=== PATIENT | male | born 1945 | race Caucasian/White ===

== ENCOUNTER 2016-11-01 18:05 | Inpatient (IN) | payer OTHER ==
[~2016-11-01] VITALS: Ht 182.9 cm; Wt 80.7 kg
[~2016-11-01 18:05] MED LIST: ZITH250T PO; ZOCO40TA PO
[2016-11-01 18:10] VITALS: BP 122/66; PULSE 67; RESP 24; TEMP 98.3; O2SAT 99
[2016-11-01] MEDS ORDERED: SODIUM CHLORIDE 0.9% FLUSH 5 ML FLUSH IVF PRN (18:15)
[2016-11-01] MEDS ORDERED: SODIUM CHLORID 0.9% 500 ML INJ 500 ML IV ONE (18:15)
[2016-11-01] MEDS ORDERED: SIMV40TA PO (18:28)
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
[2016-11-01 18:41] LABS: BASOPHIL # 0.1 TH/MM3 (0-0.2); BASOPHIL % 1.5 % (0.0-2.0); EOSINOPHIL # 0.4 TH/MM3 (0-0.4); EOSINOPHIL % 5.8 % (0.0-4.0); HEMATOCRIT 37.6 % (39.0-51.0); HEMO FLAGS DIFF FINAL; LYMPH % 35.7 % (9.0-44.0); LYMPHOCYTE # 2.3 TH/MM3 (1.0-4.8); MEAN CELL VOLUME 91.3 FL (80.0-100.0); MEAN CORPUSCULAR HEMOGLOBIN 31.8 PG (27.0-34.0); MEAN CORPUSCULAR HGB CONC 34.8 % (32.0-36.0); MONO % 9.3 % (0.0-8.0); NEUT % 47.7 % (16.0-70.0); PLATELET COUNT 207 TH/MM3 (150-450); RED BLOOD COUNT 4.11 MIL/MM3 (4.50-5.90); RED CELL DISTRIBUTION WIDTH 14.7 % (11.6-17.2); WHITE BLOOD COUNT 6.4 TH/MM3 (4.0-11.0)
[2016-11-01 18:53] LABS: APTT (PATIENT) 25.8 SEC (24.3-30.1); PROTHROMBIN TIME - PATIENT 11.1 SEC (9.8-11.6)
[2016-11-01 19:11] LABS: ANION GAP 10 MEQ/L (5-15); AST (GOT) 20 U/L (15-37); BICARBONATE 25.6 MEQ/L (21.0-32.0); BLOOD UREA NITROGEN 8 MG/DL (7-18); CHLORIDE 90 MEQ/L (98-107); GLOMERULAR FILTRATION RATE 114 ML/MIN (>89); MAGNESIUM 1.9 MG/DL (1.5-2.5); POTASSIUM 3.5 MEQ/L (3.5-5.1); SODIUM (NA) 126 MEQ/L (136-145)
[2016-11-01 19:15] LABS: ALKALINE PHOSPHATASE 68 U/L (45-117); ALT (GPT) 22 U/L (12-78); CREATINE KINASE 103 U/L (39-308); TOTAL BILIRUBIN ADULT 0.3 MG/DL (0.2-1.0)
[2016-11-01 19:35] VITALS: BP 137/80; PULSE 68; RESP 20; TEMP 98; O2SAT 98
--- NOTE | 2016-11-01 19:47 | RADRPT ---
EXAM DATE/TIME: 11/01/2016 18:34 [facility] COMPARISON: No previous studies available for comparison. INDICATIONS : Chest pains. MEDICAL HISTORY : None. SURGICAL HISTORY : Cholecystectomy. Shoulder sx. ENCOUNTER: Initial ACUITY: 1 day PAIN SCORE: 7/10 LOCATION: Bilateral chest FINDINGS: A single view of the chest demonstrates the lungs to be symmetrically aerated without evidence of mas s, infiltrate or effusion. The cardiomediastinal contours are unremarkable. CONCLUSION: 1. No active disease. Metallic screw seen in the coracoclavicular region on the right. Dion Curtis MD on November 01, 2016 at 19:44 Board Certified Radiologist. This report was verified electronically.
[2016-11-01 19:56] VITALS: RESP 20
[2016-11-01] MEDS ORDERED: IOHEXOL 350 MG/ML 10 ML VIAL (for RAD DIAG) IV ONE (20:01)
--- NOTE | 2016-11-01 21:15 | RADRPT ---
EXAM DATE/TIME: 11/01/2016 19:56 [facility] COMPARISON: No previous studies available for comparison. INDICATIONS : Upper abdominal pain. IV CONTRAST: 95 cc Omnipaque 350 (iohexol) IV ORAL CONTRAST: No oral contrast ingested. RADIATION DOSE: 12.35 CTDIvol (mGy) MEDICAL HISTORY : Chronic obstructive pulmonary disease. epididymitis SURGICAL HISTORY : Cholecystectomy. ENCOUNTER: Initial ACUITY: 1 day PAIN SCALE: 7/10 LOCATION: abdomen TECHNIQUE: Volumetric scanning of the abdomen and pelvis was performed. Using automated exposure control and ad justment of the mA and/or kV according to patient size, radiation dose was kept as low as reasonably achievable to obtain optimal diagnostic quality images. FINDINGS: There is abnormal soft tissue density in the abdomen adjacent to the aorta just below the level of th e renal arteries. It appears to be contiguous with the left posterolateral wall of the aorta and coul d represent a focal saccular aneurysm. It does not contain contrast and is presumably thrombosed. The re is a more typical-appearing 3.1 cm aneurysmal dilatation of the distal abdominal aorta just above the bifurcation. The stomach is distended with an air-fluid level present. Lung bases are clear. No significant abnorm ality in the liver, spleen, adrenals, kidneys or pancreas. Previous cholecystectomy. No bowel obstruc tion. No free air or free fluid. Femoral-femoral shunt present. 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 CONCLUSION: 1. Saccular pouching from the left posterolateral wall of the infrarenal abdominal aorta measuring up to 3 x 2.4 cm. Etiology unclear but possibly a thrombosed saccular aneurysm. 2. 3.1 cm infrarenal abdominal aortic aneurysm also present with partial mural thrombus. 3. Previous femoral to femoral artery shunt present. 4. Distended stomach with air-fluid level. Dion Curtis MD on November 01, 2016 at 20:50 Board Certified Radiologist. This report was verified electronically.
[2016-11-01] MEDS ORDERED: HALOPERIDOL LACTATE 5 MG/ML AMP IM PRN (22:00)
[2016-11-01] MEDS ORDERED: ACETAMINOPHEN/HYDROcodone 325 MG/5 MG TAB PO PRN (22:00)
[2016-11-01] MEDS ORDERED: ONDANSETRON HCL 4 MG/2 ML VIAL IVP PRN (22:00)
[2016-11-01] MEDS ORDERED: LORazepam 2 MG/ML VIAL IV PUSH PRN ×4 (22:00)
[2016-11-01] MEDS ORDERED: FLUMAZENIL 0.5 MG/5 ML VIAL IV PUSH PRN (22:00)
[2016-11-01] MEDS ORDERED: ACETAMINOPHEN 325 MG TAB PO PRN (22:00)
[2016-11-01] MEDS ORDERED: SODIUM CHLORIDE 0.9% FLUSH 5 ML FLUSH FLUSH PRN (22:00)
[2016-11-01] MEDS ORDERED: BISACODYL 10 MG SUPP PR PRN (22:00)
[2016-11-01] MEDS ORDERED: LORazepam 1 MG TAB PO PRN (22:00)
[2016-11-01] MEDS ORDERED: MORPHINE SULFATE 4 MG/ML INJ IV PRN (22:00)
[2016-11-01] MEDS ORDERED: LORazepam 2 MG TAB PO PRN (22:00)
--- NOTE | 2016-11-01 22:01 | HHI.HP ---
[facility] Service [facility] Primary Care Physician [facility] Admission Diagnosis AAA, chest pain, hyponatremia Diagnoses: (1) Chest pain Diagnosis: Principal (2) AAA (abdominal aortic aneurysm) Diagnosis: Principal (3) Hyponatremia Diagnosis: Principal (4) Alcohol abuse Diagnosis: Principal (5) Tobacco abuse Diagnosis: Principal Travel History International Travel<30 Days: No Contact w/Intl Traveler <30 Da: No Traveled to Known Affected Are: No History of Present Illness This is a 71-year-old male with a PMH of COPD, Alcohol Abuse and Tobacco Abuse who was brought to the ER by EMS secondary to chest pain. States he was hanging out with friends at home and had drank 2 pitchers of beer when he felt sudden epigastric/substernal pain. S/p ASA and NTG by EMS w/ no significant improvement. On arrival, pt acutely intoxicated. Admits to drinking 1-2 pitchers of beer/day. BP 137/80, HR 68, O2 sat 98% on RA, Afebrile. CBC unremarkable. Na 126. INR normal. Alcohol 212. CXR w/ no acute findings. 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 Dr. Corley consulted by ER physician, recommended NPO status and will evaluate in am. Review of Systems Other ROS: 14 point review of systems otherwise negative. Past Family Social History Past Medical History PMH: COPD, Alcohol Abuse and Tobacco Abuse Past Surgical History PAST SURGICAL HISTORY: Right Shoulder Surgery, Cholecystectomy, Lower Extremity Grafts Allergies: Coded Allergies: Trazodone (Verified Allergy, Intermediate, ERECTION FOR DAYS, 11/01/16) Family History PAST FAMILY HISTORY: Reviewed. No h/o DM or CAD Social History PAST SOCIAL HISTORY: Drinks 12-14 beers/day. Smokes 1ppd. Denies drug use. Physical Exam Vital Signs Vital Signs Date Time Temp Pulse Resp B/P Pulse Ox O2 Delivery O2 Flow Rate FiO2 11/01/16 19:56 20 11/01/16 19:35 98.0 68 20 137/80 98 Room Air 11/01/16 18:10 98.3 67 24 122/66 99 Physical Exam PE: GENERAL: Middle-aged white male in no acute distress. Intoxicated but awake HEENT: PERRLA, EOMI. No scleral icterus or conjunctival pallor. No lid lag or facial droop. CARDIOVASCULAR: Regular rate and rhythm. No obvious murmurs to auscultation. No chest tenderness to palpation. RESPIRATORY: No obvious rhonchi or wheezing. Clear to auscultation. Breath sounds equal bilaterally. GASTROINTESTINAL: Abdomen soft, epigastric tenderness to palpation, nondistended. BS normal. MUSCULOSKELETAL: Extremities without clubbing, cyanosis, or edema. No obvious deformities. NEUROLOGICAL: Awake, alert and oriented x4. No focal neurologic deficits. Moving both upper and lower extremities spontaneously. Laboratory Laboratory Tests Test 11/01/16 18:30 White Blood Count 6.4 Red Blood Count 4.11 Hemoglobin 13.1 Hematocrit 37.6 Mean Corpuscular Volume 91.3 Mean Corpuscular Hemoglobin 31.8 Mean Corpuscular Hemoglobin 34.8 Concent Red Cell Distribution Width 14.7 Platelet Count 207 Mean Platelet Volume 7.5 Neutrophils (%) (Auto) 47.7 Lymphocytes (%) (Auto) 35.7 Monocytes (%) (Auto) 9.3 Eosinophils (%) (Auto) 5.8 Basophils (%) (Auto) 1.5 Neutrophils # (Auto) 3.0 Lymphocytes # (Auto) 2.3 Monocytes # (Auto) 0.6 Eosinophils # (Auto) 0.4 Basophils # (Auto) 0.1 CBC Comment DIFF FINAL Differential Comment Prothrombin Time 11.1 Prothromb Time International 1.0 Ratio Activated Partial 25.8 Thromboplast Time Sodium Level 126 Potassium Level 3.5 Chloride Level 90 Carbon Dioxide Level 25.6 Anion Gap 10 Blood Urea Nitrogen 8 Creatinine 0.69 Estimat Glomerular Filtration 114 Rate Random Glucose 75 Calcium Level 8.1 Magnesium Level 1.9 Total Bilirubin 0.3 Aspartate Amino Transf 20 (AST/SGOT) Alanine Aminotransferase 22 (ALT/SGPT) Alkaline Phosphatase 68 Total Creatine Kinase 103 Creatine Kinase MB 3.0 Troponin I LESS THAN 0.02 B-Type Natriuretic Peptide 35 Total Protein 6.6 Albumin 3.4 Lipase 163 Ethyl Alcohol Level 212 Result Diagram: 11/01/16182911/01/161829 Assessment and Plan Problem List: (1) Chest pain ICD Code: R07.9 Status: Acute (2) AAA (abdominal aortic aneurysm) ICD Code: I71.4 Status: Acute (3) Hyponatremia ICD Code: E87.1 Status: Acute (4) Alcohol abuse ICD Code: F10.10 Status: Acute (5) Tobacco abuse ICD Code: Z72.0 Status: Acute Assessment and Plan A/P: 1. Chest Pain: Acute onset of epigastric/substernal chest pain unrelieved by ASA/NTG, likely related to Alcoholic Gastritis however will r/o ACS. Check serial enzymes, NTG/Morphine prn. CXR w/ no acute findings, images reviewed by me. Protonix IV. 2. AAA: CT Abd/Pelvis w/ saccular outpouching from infrarenal abdominal aorta measuring 3 x 2.4 cm, possibly thrombosed saccular aneurysm and 3.1 cm infrarenal abdominal aortic aneurysm with possible partial mural thrombus, images reviewed by me. Dr. Corley consulted by ER physician, recommended NPO status and admission for further eval in am. Currently pain free. Analgesics/ antiemetics as needed. Repeat labs in am. Hemodynamically stable at this time. 3. Hyponatremia: Na 126, likely related to dehydration/chronic alcohol abuse. IVF, repeat BMP, telemetry. 4. Alcohol Abuse: Drinks 12-14 beers/day, Alcohol 212. Seizure Precautions, CIWA, MVT/Thiamine/Folate replacement. 5 Tobacco Abuse: Counselled. Ativan prn. No NicoDerm to avoid vasoconstriction. 6. DVT Prophylaxis: SCD/Teds. 7. Social work for d/c planning as needed. 8. Case discussed w/ ER physician at length. Physician Certification 2 Midnight Certification Type: Admission for Inpatient Services Order for Inpatient Services The services are ordered in accordance with Medicare regulations or non- Medicare payer requirements, as applicable. In the case of services not specified as inpatient-only, they are appropriately provided as inpatient services in accordance with the 2-midnight benchmark. Estimated LOS (days): 2 days is the estimated time the patient will need to remain in the hospital, assuming treatment plan goals are met and no additional complications. Post-Hospital Plan: Not yet determined Problem Qualifiers (1) Chest pain: Qualified Code: R07.9 - Chest pain, unspecified type (2) AAA (abdominal aortic aneurysm): Qualified Code: I71.4 - Abdominal aortic aneurysm (AAA) without rupture Jesica Ayala MD Nov 01, 2016 22:01
--- NOTE | 2016-11-01 22:56 | PD ---
Physical Exam Narrative GENERAL: Well-nourished, well-developed patient. SKIN: Warm and dry. HEAD: Normocephalic and atraumatic. EYES: No injection or drainage. ENT: No nasal drainage noted. NECK: Supple, trachea midline. CARDIOVASCULAR: Regular rate and rhythm RESPIRATORY: no increased effort. No accessory muscle use. GASTROINTESTINAL: Abdomen soft, non-tender, nondistended. BACK: Nontender without obvious deformity. NEUROLOGICAL: Awake and alert. Moves all extremities. slurred speech. Data Data Last Documented VS Vital Signs Date Time Temp Pulse Resp B/P Pulse Ox O2 Delivery O2 Flow Rate FiO2 11/01/16 19:56 20 11/01/16 19:35 98.0 68 137/80 98 Room Air Orders B-Type Natriuretic Peptide (11/01/16 18:10) Ckmb (Isoenzyme) Profile (11/01/16 18:10) Complete Blood Count With Diff (11/01/16 18:10) Comprehensive Metabolic Panel (11/01/16 18:10) Magnesium (Mg) (11/01/16 18:10) Prothrombin Time / Inr (Pt) (11/01/16 18:10) Act Partial Throm Time (Ptt) (11/01/16 18:10) Troponin I (11/01/16 18:10) Lipase (11/01/16 18:10) Chest, Single Ap (11/01/16 18:10) Ecg Monitoring (11/01/16 18:10) Iv Access Insert/Monitor (11/01/16 18:10) Oximetry (11/01/16 18:10) Sodium Chloride 0.9% Flush (Ns Flush) (11/01/16 18:15) Sodium Chlorid 0.9% 500 Ml Inj (Ns 500 M (11/01/16 18:15) Electrocardiogram (11/01/16 ) Ct Abd/Pel W Iv Contrast(Rout) (11/01/16 18:33) CKMB (11/01/16 18:30) CKMB% (11/01/16 18:30) Alcohol (Ethanol) (11/01/16 18:30) Iohexol 350 Inj (Omnipaque 350 Inj) (11/01/16 20:01) Consult Vascular Surgery (11/01/16 ) Admit Order (Ed Use Only) (11/01/16 21:42) Labs Laboratory Tests Test 11/01/16 18:30 White Blood Count 6.4 TH/MM3 Red Blood Count 4.11 MIL/MM3 Hemoglobin 13.1 GM/DL Hematocrit 37.6 % Mean Corpuscular Volume 91.3 FL Mean Corpuscular Hemoglobin 31.8 PG Mean Corpuscular Hemoglobin 34.8 % Concent Red Cell Distribution Width 14.7 % Platelet Count 207 TH/MM3 Mean Platelet Volume 7.5 FL Neutrophils (%) (Auto) 47.7 % Lymphocytes (%) (Auto) 35.7 % Monocytes (%) (Auto) 9.3 % Eosinophils (%) (Auto) 5.8 % Basophils (%) (Auto) 1.5 % Neutrophils # (Auto) 3.0 TH/MM3 Lymphocytes # (Auto) 2.3 TH/MM3 Monocytes # (Auto) 0.6 TH/MM3 Eosinophils # (Auto) 0.4 TH/MM3 Basophils # (Auto) 0.1 TH/MM3 CBC Comment DIFF FINAL Differential Comment Prothrombin Time 11.1 SEC Prothromb Time International 1.0 RATIO Ratio Activated Partial 25.8 SEC Thromboplast Time Sodium Level 126 MEQ/L Potassium Level 3.5 MEQ/L Chloride Level 90 MEQ/L Carbon Dioxide Level 25.6 MEQ/L Anion Gap 10 MEQ/L Blood Urea Nitrogen 8 MG/DL Creatinine 0.69 MG/DL Estimat Glomerular Filtration 114 ML/MIN Rate Random Glucose 75 MG/DL Calcium Level 8.1 MG/DL Magnesium Level 1.9 MG/DL Total Bilirubin 0.3 MG/DL Aspartate Amino Transf 20 U/L (AST/SGOT) Alanine Aminotransferase 22 U/L (ALT/SGPT) Alkaline Phosphatase 68 U/L Total Creatine Kinase 103 U/L Creatine Kinase MB 3.0 NG/ML Troponin I LESS THAN 0.02 NG/ML B-Type Natriuretic Peptide 35 PG/ML Total Protein 6.6 GM/DL Albumin 3.4 GM/DL Lipase 163 U/L Ethyl Alcohol Level 212 MG/DL [facility] Supervised Visit with WAYNE: No Interpretation(s) CBC & BMP Diagram 11/01/16 18:30 Last 24 hours Impressions Abdomen/Pelvis CT 11/01/16 [id number] Signed Impressions: Service Date/Time: Tuesday, November 01, 2016 19:56 - CONCLUSION: 1. Saccular pouching from the left posterolateral wall of the infrarenal abdominal aorta measuring up to 3 x 2.4 cm. Etiology unclear but possibly a thrombosed saccular aneurysm. 2. 3.1 cm infrarenal abdominal aortic aneurysm also present with partial mural thrombus. 3. Previous femoral to femoral artery shunt present. 4. Distended stomach with air-fluid level. Dion Curtis MD Chest X-Ray 11/01/16 1810 Signed Impressions: Service Date/Time: Tuesday, November 01, 2016 18:34 - CONCLUSION: 1. No active disease. Metallic screw seen in the coracoclavicular region on the right. Dion Curtis MD Narrative Course Signed over to me to follow workup and likely admit, workup with new abdominal aneurysm with intermittent abdominal pain. Blood work also shows alcohol intoxication and associated hyponatremia was stable hemoglobin. Patient has no pain on reexamination and his waking up. Updated and agrees to admission Physician Communication Physician Communication dr brantley states to keep npo, admit to cic with medicine dr tierney agrees to admit Diagnosis Primary Impression: Chest pain Qualified Code: R07.9 - Chest pain, unspecified type Additional Impressions: AAA (abdominal aortic aneurysm) Qualified Code: I71.4 - Abdominal aortic aneurysm (AAA) without rupture Hyponatremia Alcohol abuse Admitting Information Admitting Physician Requests: Admit Brigette Wharton MD Nov 01, 2016 22:56
[2016-11-01] MEDS: PANTOPRAZOLE SODIUM 40 MG VIAL IV PUSH SCH (23:19)
[2016-11-01] MEDS: THIAMINE INJ 100 MG in SODIUM CHLORIDE 0.9% INJ 100 ML IV SCH (23:19)
[2016-11-01] MEDS: SODIUM CHLOR 0.9% 1000 ML INJ 1,000 ML IV SCH (23:19)
[2016-11-01] MEDS: MULTIVITAMIN INJ 10 ML, FOLIC ACID INJ 1 MG in SODIUM CHLORID 0.9% 500 ML INJ 500 ML IV SCH (23:19)
[2016-11-02] VITALS (27 sets, daily range): BP systolic 135–157; BP diastolic 70–89; PULSE 58–84; RESP 16–20; TEMP 97.6–98.9; O2SAT 94–98
[2016-11-02 02:22] LABS: ANION GAP 9 MEQ/L (5-15); BICARBONATE 24.9 MEQ/L (21.0-32.0); BLOOD UREA NITROGEN 9 MG/DL (7-18); CHLORIDE 101 MEQ/L (98-107); GLOMERULAR FILTRATION RATE 131 ML/MIN (>89); SODIUM (NA) 135 MEQ/L (136-145)
--- NOTE | 2016-11-02 07:54 | PD.VS.CON ---
History of Present Illness Chief Complaint: Hx of chest (xiphoid and substernal) band like pain that has subsided since last evening. Consult Requested by: ER History of Present Illness 71 year old male with hx of PAD, Hyperlipidemia and smoking with acute onset of substernal/epigastric type pain. Pain resolved once brought to the ER. Patient intoxicated upon arrival. Incidental finding of infrarenal saccular and fusiform aneurysms (former with thrombus) on CT with contrast. Denies flank or back discomfort. Past/Family/Social History Past Medical History Past Medical History PMH: COPD, PAD, Alcohol Abuse and Tobacco Abuse Past Surgical History PAST SURGICAL HISTORY: Right Shoulder Surgery, Cholecystectomy, Fem-fem, left fem-pop bypass, right ulnar artery surgery. Allergies: Coded Allergies: Trazodone (Verified Allergy, Intermediate, ERECTION FOR DAYS, 11/01/16) Family History PAST FAMILY HISTORY: Reviewed. No h/o DM or CAD Social History PAST SOCIAL HISTORY: Drinks 12-14 beers/day. Smokes 1ppd. Denies drug use. Home Medications Reported Medications Simvastatin 40 Mg Tab40 Mg PO HS Ref 0 11/01/16 Coded Allergies: Trazodone (Verified Allergy, Intermediate, ERECTION FOR DAYS, 11/01/16) Physical Exam Vitals/I&O Date Time Temp Pulse Resp B/P Pulse Ox O2 Delivery O2 Flow Rate FiO2 11/02/16 01:25 97.6 70 18 147/86 94 11/02/16 00:08 98.0 70 20 136/70 98 Nasal Cannula 2 11/01/16 19:56 20 11/01/16 19:35 98.0 68 20 137/80 98 Room Air 11/01/16 18:10 98.3 67 24 122/66 99 Neuro: CN2-12 intact Neck: no carotid bruits Heart: regular Lungs: CTA B Abdomen: soft and non-tender. Vascular: palpable radial and pedal pulses bilaterally. Fem-fem signal Extremities: warm Laboratory Tests Test 11/01/16 11/02/16 18:30 01:50 White Blood Count 6.4 Red Blood Count 4.11 Hemoglobin 13.1 Hematocrit 37.6 Mean Corpuscular Volume 91.3 Mean Corpuscular Hemoglobin 31.8 Mean Corpuscular Hemoglobin 34.8 Concent Red Cell Distribution Width 14.7 Platelet Count 207 Mean Platelet Volume 7.5 Neutrophils (%) (Auto) 47.7 Lymphocytes (%) (Auto) 35.7 Monocytes (%) (Auto) 9.3 Eosinophils (%) (Auto) 5.8 Basophils (%) (Auto) 1.5 Neutrophils # (Auto) 3.0 Lymphocytes # (Auto) 2.3 Monocytes # (Auto) 0.6 Eosinophils # (Auto) 0.4 Basophils # (Auto) 0.1 CBC Comment DIFF FINAL Differential Comment Prothrombin Time 11.1 Prothromb Time International 1.0 Ratio Activated Partial 25.8 Thromboplast Time Sodium Level 126 135 Potassium Level 3.5 4.0 Chloride Level 90 101 Carbon Dioxide Level 25.6 24.9 Anion Gap 10 9 Blood Urea Nitrogen 8 9 Creatinine 0.69 0.61 Estimat Glomerular Filtration 114 131 Rate Random Glucose 75 91 Calcium Level 8.1 8.4 Magnesium Level 1.9 Total Bilirubin 0.3 Aspartate Amino Transf 20 (AST/SGOT) Alanine Aminotransferase 22 (ALT/SGPT) Alkaline Phosphatase 68 Total Creatine Kinase 103 Creatine Kinase MB 3.0 Troponin I LESS THAN 0.02 LESS THAN 0.02 B-Type Natriuretic Peptide 35 Total Protein 6.6 Albumin 3.4 Lipase 163 Ethyl Alcohol Level 212 Last 48 hours Impressions Abdomen/Pelvis CT 11/01/16 1833 Signed Impressions: Service Date/Time: Tuesday, November 01, 2016 19:56 - CONCLUSION: 1. Saccular pouching from the left posterolateral wall of the infrarenal abdominal aorta measuring up to 3 x 2.4 cm. Etiology unclear but possibly a thrombosed saccular aneurysm. 2. 3.1 cm infrarenal abdominal aortic aneurysm also present with partial mural thrombus. 3. Previous femoral to femoral artery shunt present. 4. Distended stomach with air-fluid level. Dion Curtis MD Chest X-Ray 11/01/160 Signed Impressions: Service Date/Time: Tuesday, November 01, 2016 18:34 - CONCLUSION: 1. No active disease. Metallic screw seen in the coracoclavicular region on the right. Dion Curtis MD Assessment and Plan Assessment: (1) AAA (abdominal aortic aneurysm) Status: Acute Plan Patient is 71 year old smoker with COPD and PAD who has had multilpe arterial bypasses in the past. Lower chest pain/resolved. Was not aware of having aortic aneurysms. Less confused this am and his symptoms have resolved. I don't believe he is symptomatic from his aneurysm but he does have a saccular aneurysm in the infrarenal location that is concerning. I think in the interim his diet can be advanced. With his hx of drinking should look for signs of DT over the next few days. Will continue to follow. May order a CTA of aorta with runoff for more detailed arterial anatomy. (will allow for hydration after recent dye load).] TTE may help with surgical risk stratification. Miles Corley DO, FACS Ultrasonographer of Vascular Surgery /[place] Problem Qualifiers (1) AAA (abdominal aortic aneurysm): Qualified Code: I71.4 - Abdominal aortic aneurysm (AAA) without rupture Miles Corley DO Nov 02, 2016 07:54
[2016-11-02] MEDS: SODIUM CHLORIDE 0.9% FLUSH 5 ML FLUSH FLUSH SCH ×2 (10:03→21:00)
[2016-11-02] MEDS: PANTOPRAZOLE SODIUM 40 MG VIAL IV PUSH SCH ×2 (10:16→21:17)
[2016-11-02 11:30] LABS: AUTOMATED NEUTROPHIL # 2.1 TH/MM3 (1.8-7.7); BASOPHIL # 0.1 TH/MM3 (0-0.2); EOSINOPHIL # 0.3 TH/MM3 (0-0.4); EOSINOPHIL % 6.9 % (0.0-4.0); HEMATOCRIT 38.2 % (39.0-51.0); HEMO FLAGS DIFF FINAL; LYMPH % 32.1 % (9.0-44.0); LYMPHOCYTE # 1.5 TH/MM3 (1.0-4.8); MEAN CELL VOLUME 92.1 FL (80.0-100.0); MEAN CORPUSCULAR HEMOGLOBIN 31.8 PG (27.0-34.0); MEAN CORPUSCULAR HGB CONC 34.5 % (32.0-36.0); MONO % 11.9 % (0.0-8.0); NEUT % 47.1 % (16.0-70.0); PLATELET COUNT 194 TH/MM3 (150-450); RED BLOOD COUNT 4.14 MIL/MM3 (4.50-5.90); RED CELL DISTRIBUTION WIDTH 14.8 % (11.6-17.2); WHITE BLOOD COUNT 4.6 TH/MM3 (4.0-11.0)
--- NOTE | 2016-11-02 11:55 | EKG ---
Date Performed: 11/01/2016 Time Performed: 18:22:39 PTAGE: 71 years EKG: Sinus rhythm NORMAL ECG NO PREVIOUS TRACING DOCTOR: Meghan Wang Interpretating Date/Time 11/02/2016 11:54:15
[2016-11-02 11:59] LABS: ALT (GPT) 20 U/L (12-78); ANION GAP 5 MEQ/L (5-15); AST (GOT) 15 U/L (15-37); BICARBONATE 27.6 MEQ/L (21.0-32.0); BLOOD UREA NITROGEN 9 MG/DL (7-18); CHLORIDE 102 MEQ/L (98-107); GLOMERULAR FILTRATION RATE 131 ML/MIN (>89); POTASSIUM 4.7 MEQ/L (3.5-5.1); SODIUM (NA) 135 MEQ/L (136-145)
[2016-11-02 12:03] LABS: ALKALINE PHOSPHATASE 63 U/L (45-117); TOTAL BILIRUBIN ADULT 0.5 MG/DL (0.2-1.0)
[2016-11-02] MEDS: MULTIVITAMIN INJ 10 ML, FOLIC ACID INJ 1 MG in SODIUM CHLORID 0.9% 500 ML INJ 500 ML IV SCH (14:51)
[2016-11-02] MEDS: SODIUM CHLOR 0.9% 1000 ML INJ 1,000 ML IV SCH (14:51)
--- NOTE | 2016-11-02 19:13 | HHI.PR ---
Subjective Remarks Patient seen this morning around 11 AM. Says he is feeling much better than when he came in. Reports that chest pain is resolved. Denies any abdominal pain. Objective Vital Signs Date Time Temp Pulse Resp B/P Pulse Ox O2 Delivery O2 Flow Rate FiO2 11/02/16 18:03 66 11/02/16 17:06 62 11/02/16 16:09 63 11/02/16 15:38 98.5 66 16 157/89 97 11/02/16 15:00 64 11/02/16 14:00 71 11/02/16 13:00 62 11/02/16 12:00 61 11/02/16 11:30 98.3 60 16 140/76 98 11/02/16 11:00 68 11/02/16 10:00 70 11/02/16 09:00 70 11/02/16 08:00 97.8 80 16 155/89 98 11/02/16 08:00 68 11/02/16 07:00 60 11/02/16 06:00 62 11/02/16 05:00 62 11/02/16 04:00 60 11/02/16 03:00 84 11/02/16 03:00 97.6 62 18 135/73 96 11/02/16 02:00 61 11/02/16 01:25 97.6 70 18 147/86 94 11/02/16 00:08 98.0 70 20 136/70 98 Nasal Cannula 2 11/01/16 19:56 20 11/01/16 19:35 98.0 68 20 137/80 98 Room Air I/O 11/01/16 11/01/16 11/01/16 11/02/16 11/02/16 11/02/16 07:00 15:00 23:00 07:00 15:00 23:00 Intake Total 500 ml 1140 ml 2566 ml Output Total 1200 ml 1775 ml Balance 500 ml -60 ml 791 ml Intake Oral 240 ml 720 ml IV Total 500 ml 900 ml 1846 ml Output Urine Total 1200 ml 1775 ml # Voids 1 # Bowel Movements 0 Result Diagram: 11/02/16 1055 11/02/16 1055 Objective Remarks GENERAL: Patient sitting up in bed. Appears comfortable. Alert and oriented 3. SKIN: Warm and dry. HEAD: Normocephalic. EYES: No scleral icterus. No injection or drainage. NECK: Supple, trachea midline. No JVD. CARDIOVASCULAR: Regular rate and rhythm without murmurs, gallops, or rubs. Peripheral perfusion with capillary refill acceptable bilaterally. RESPIRATORY: Breath sounds equal bilaterally. No accessory muscle use. GASTROINTESTINAL: Abdomen soft, non-tender, nondistended. MUSCULOSKELETAL: No cyanosis, or edema. BACK: Nontender without obvious deformity. No CVA tenderness. A/P Assessment and Plan // Chest Pain: Acute onset of epigastric/substernal chest pain unrelieved by ASA/NTG, likely related to Alcoholic Gastritis. -Resolved. Negative troponin 3. Chest x-ray with no acute findings. Continue IV Protonix. -Echocardiogram ordered and pending. 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 Corley consulted by ER physician, recommends assuring for signs of learning troponins over the next several days, with possible CTA of aorta with runoff for more detailed arterial anatomy -Cardia gram ordered and pending for preoperative risk stratification. //Hyponatremia on admission. 126 on admission. -Likely secondary to beer photomania. -Improved to sodium of 135 today with normal saline. We'll switch to half- normal saline, and monitor. //Chronic alcoholism. 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 Continue thiamine. DVT prophylaxis. SCDs/teds. As per surgical service. Discharge Planning Continued monitoring for hyponatremia, as well as abdominal aortic aneurysm. Nir Mack MD Nov 02, 2016 19:13
[2016-11-02] MEDS: THIAMINE INJ 100 MG in SODIUM CHLORIDE 0.9% INJ 100 ML IV SCH (21:19)
[2016-11-02] MEDS: SODIUM CHLOR 0.45% 1000 ML INJ 1,000 ML IV SCH (21:21)
[2016-11-03] VITALS (22 sets, daily range): BP systolic 145–159; BP diastolic 82–91; PULSE 54–88; RESP 17–18; TEMP 98.1–98.4; O2SAT 94–96
[2016-11-03] MEDS: SODIUM CHLOR 0.45% 1000 ML INJ 1,000 ML IV SCH ×2 (07:09→17:39)
[2016-11-03] MEDS: SODIUM CHLORIDE 0.9% FLUSH 5 ML FLUSH FLUSH SCH ×2 (07:23→22:02)
[2016-11-03 08:18] LABS: AUTOMATED NEUTROPHIL # 2.8 TH/MM3 (1.8-7.7); BASOPHIL # 0.1 TH/MM3 (0-0.2); BASOPHIL % 1.4 % (0.0-2.0); EOSINOPHIL # 0.5 TH/MM3 (0-0.4); EOSINOPHIL % 8.3 % (0.0-4.0); HEMATOCRIT 38.2 % (39.0-51.0); HEMO FLAGS DIFF FINAL; LYMPH % 28.9 % (9.0-44.0); LYMPHOCYTE # 1.6 TH/MM3 (1.0-4.8); MEAN CELL VOLUME 92.5 FL (80.0-100.0); MEAN CORPUSCULAR HEMOGLOBIN 31.5 PG (27.0-34.0); MONO % 10.5 % (0.0-8.0); NEUT % 50.9 % (16.0-70.0); PLATELET COUNT 195 TH/MM3 (150-450); RED BLOOD COUNT 4.13 MIL/MM3 (4.50-5.90); RED CELL DISTRIBUTION WIDTH 14.7 % (11.6-17.2); WHITE BLOOD COUNT 5.5 TH/MM3 (4.0-11.0)
[2016-11-03] MEDS: PANTOPRAZOLE SODIUM 40 MG VIAL IV PUSH SCH ×2 (08:53→22:03)
[2016-11-03 08:55] LABS: BICARBONATE 29.1 MEQ/L (21.0-32.0); POTASSIUM 4.3 MEQ/L (3.5-5.1)
--- NOTE | 2016-11-03 17:43 | PD.VS.PN ---
Objective Vitals/I&O Date Time Temp Pulse Resp B/P Pulse Ox O2 Delivery O2 Flow Rate FiO2 11/03/16 16:00 58 11/03/16 16:00 98.1 65 18 148/82 94 11/03/16 15:00 60 11/03/16 14:00 64 11/03/16 13:00 64 11/03/16 12:00 98.2 79 18 159/90 94 11/03/16 12:00 78 11/03/16 11:00 60 11/03/16 10:00 88 11/03/16 09:00 64 11/03/16 08:00 57 11/03/16 08:00 98.4 64 18 155/91 95 11/03/16 07:00 60 11/03/16 06:00 54 11/03/16 05:00 56 11/03/16 05:00 57 18 145/85 96 11/03/16 04:00 58 11/03/16 03:00 63 11/03/16 02:00 54 11/03/16 01:00 58 11/03/16 00:00 58 11/02/16 23:55 69 18 148/85 97 11/02/16 23:00 60 11/02/16 22:00 60 11/02/16 21:00 58 11/02/16 20:00 58 11/02/16 19:00 60 11/02/16 19:00 98.9 61 18 149/89 98 11/02/16 18:03 66 11/03/16 11/03/16 11/03/16 07:00 15:00 23:00 Intake Total 1320 ml Output Total 675 ml Balance 645 ml Laboratory Laboratory Tests Test 11/03/16 07:12 White Blood Count 5.5 Red Blood Count 4.13 Hemoglobin 13.0 Hematocrit 38.2 Mean Corpuscular Volume 92.5 Mean Corpuscular Hemoglobin 31.5 Mean Corpuscular Hemoglobin 34.0 Concent Red Cell Distribution Width 14.7 Platelet Count 195 Mean Platelet Volume 8.1 Neutrophils (%) (Auto) 50.9 Lymphocytes (%) (Auto) 28.9 Monocytes (%) (Auto) 10.5 Eosinophils (%) (Auto) 8.3 Basophils (%) (Auto) 1.4 Neutrophils # (Auto) 2.8 Lymphocytes # (Auto) 1.6 Monocytes # (Auto) 0.6 Eosinophils # (Auto) 0.5 Basophils # (Auto) 0.1 CBC Comment DIFF FINAL Differential Comment Sodium Level 135 Potassium Level 4.3 Chloride Level 100 Carbon Dioxide Level 29.1 Anion Gap 6 Blood Urea Nitrogen 9 Creatinine 0.68 Estimat Glomerular Filtration 116 Rate Random Glucose 102 Calcium Level 8.8 Imaging Last 48 hours Impressions Abdomen/Pelvis CT 11/01/16 1833 Signed Impressions: Service Date/Time: Tuesday, November 01, 2016 19:56 - CONCLUSION: 1. Saccular pouching from the left posterolateral wall of the infrarenal abdominal aorta measuring up to 3 x 2.4 cm. Etiology unclear but possibly a thrombosed saccular aneurysm. 2. 3.1 cm infrarenal abdominal aortic aneurysm also present with partial mural thrombus. 3. Previous femoral to femoral artery shunt present. 4. Distended stomach with air-fluid level. Dion Curtis MD Chest X-Ray 11/01/16 1810 Signed Impressions: Service Date/Time: Tuesday, November 01, 2016 18:34 - CONCLUSION: 1. No active disease. Metallic screw seen in the coracoclavicular region on the right. Dion Curtis MD Assessment and Plan Assessment: (1) AAA (abdominal aortic aneurysm) Status: Acute Plan Patient is 71 year old smoker with COPD and PAD who has had multilpe arterial bypasses in the past. Infrarenal penetrating ulcer and AAA. Patient to undergo CTA and TTE. Both ordered. No new symptoms. Miles Corley DO, FACS [employer] Trimmer of Vascular Surgery /[place] Problem Qualifiers (1) AAA (abdominal aortic aneurysm): Qualified Code: I71.4 - Abdominal aortic aneurysm (AAA) without rupture Miles Corley DO Nov 03, 2016 17:43
[2016-11-03] MEDS ORDERED: IOHEXOL 350 MG/ML 10 ML VIAL (for RAD DIAG) IV ONE (17:54)
--- NOTE | 2016-11-03 19:01 | EC ---
Study Study Date:11/03/2016 STUDY CONCLUSIONS SUMMARY - Left ventricle: The cavity size was normal. Wall thickness was normal. Systolic function was normal. The estimated ejection fraction was in the range of 55% to 60%. Wall motion was normal; there were no regional wall motion abnormalities. - Aortic valve: Valve area: 1.43cm^2(VTI). Valve area: 1.45cm^2 (Vmax). - Tricuspid valve: Mild regurgitation. - Pulmonary arteries: PA peak pressure: 37mm Hg (S). If LV function is below 40, please consider prescribing an ACEI or ARB or document rationale for non-use. PROCEDURE DATA STUDY STATUS: Elective. Procedure: Transthoracic echocardiography. Image quality was good. Scanning was performed from the parasternal, apical, and subcostal acoustic windows. Study completion: The patient tolerated the procedure well. Transthoracic echocardiography. M-mode, complete 2D, complete spectral Doppler, and color Doppler. Patient status: Inpatient. CARDIAC ANATOMY LEFT VENTRICLE: The cavity size was normal. Wall thickness was normal. Systolic function was normal. The estimated ejection fraction was in the range of 55% to 60%. Wall motion was normal; there were no regional wall motion abnormalities. AORTIC VALVE: Trileaflet; mildly thickened, mildly calcified leaflets. Doppler: Transvalvular velocity was within the normal range. There was no stenosis. No regurgitation. Valve area: 1.43cm^2(VTI). Valve area: 1.45cm^2 (Vmax). Mean gradient: 11mm Hg (S). Peak gradient: 20mm Hg (S). AORTA: Aortic root: The aortic root was normal in size. MITRAL VALVE: Structurally normal valve. Doppler: Transvalvular velocity was within the normal range. There was no evidence for stenosis. Trace to mild regurgitation. Peak gradient: 3mm Hg (D). LEFT ATRIUM: The atrium was normal in size. RIGHT VENTRICLE: The cavity size was normal. Wall thickness was normal. PULMONIC VALVE: Doppler: Transvalvular velocity was within the normal range. There was no evidence for stenosis. No regurgitation. TRICUSPID VALVE: Structurally normal valve. Doppler: Transvalvular velocity was within the normal range. Mild regurgitation. PULMONARY ARTERY: The main pulmonary artery was normal-sized. Systolic pressure was within the normal range. RIGHT ATRIUM: The atrium was normal in size. PERICARDIUM: There was no pericardial effusion. SYSTEMIC VEINS: Inferior vena cava: Not visualized. BASIC MEASUREMENTS ADULT NORMAL Left ventricle LV internal dimension, ED, chordal level, 49.6 mm 43-52 PLAX LV internal dimension, ES, chordal level, 37.7 mm 23-38 PLAX Fractional shortening, chordal level, PLAX *24 % >29 LV posterior wall thickness, ED 9.96 mm IVS/LVPW ratio, ED 1.08 <1.3 Ventricular septum Septal thickness, ED 10.8 mm Aortic valve Leaflet separation *13 mm 15-26 Right ventricle RV internal dimension, ED, PLAX 30.6 mm 19-38 BASIC MEASUREMENTS ADULT NORMAL Aortic valve Leaflet separation *13 mm 15-26 Aorta Root diameter, ED 28 mm 20-37 Left atrium Anterior-posterior dimension, ES 36 mm 19-40 LA/aortic root ratio 1.29 DOPPLER MEASUREMENTS ADULT NORMAL Main pulmonary artery Pressure, S *37 mm Hg =30 Aortic valve Peak velocity, S 222 cm/s Mean velocity, S 154 cm/s VTI, S 54.9 cm Mean gradient, S 11 mm Hg Peak gradient, S 20 mm Hg Valve area, VTI 1.43 cm^2 Valve area, Vmax 1.45 cm^2 Mitral valve Peak E-wave velocity 81.9 cm/s Peak A-wave velocity 70.6 cm/s Peak gradient, D 3 mm Hg Peak E/A ratio 1.2 Tricuspid valve Regurgitant peak velocity 259 cm/s Peak RV-RA gradient, S 27 mm Hg Maximal regurgitant velocity 259 cm/s Systemic veins Estimated CVP 10 mm Hg Right ventricle RV pressure, S *37 mm Hg <30 LEGEND: Mean values are shown as u=mean value. Asterisk (*) estevez values outside specified normal range. Prepared and signed by Enrike Villarreal [id number]
[2016-11-03] MEDS: MULTIVITAMIN INJ 10 ML, FOLIC ACID INJ 1 MG in SODIUM CHLORID 0.9% 500 ML INJ 500 ML IV SCH (22:05)
[2016-11-03] MEDS: THIAMINE INJ 100 MG in SODIUM CHLORIDE 0.9% INJ 100 ML IV SCH (22:05)
[2016-11-04] VITALS (34 sets, daily range): BP systolic 152–174; BP diastolic 84–96; PULSE 54–79; RESP 14–20; TEMP 97.1–98.2; O2SAT 94–97
[2016-11-04] MEDS: SODIUM CHLOR 0.45% 1000 ML INJ 1,000 ML IV SCH (05:17)
--- NOTE | 2016-11-04 06:16 | HHI.PR ---
Subjective Remarks Date of service 11/03/16. Patient seen the morning of 11/03/16 Patient says he feels well. Denies any chest pain or shortness of breath. No nausea or vomiting. Positive bowel movement. Objective Vital Signs Date Time Temp Pulse Resp B/P Pulse Ox O2 Delivery O2 Flow Rate FiO2 11/04/16 05:00 64 11/04/16 04:00 98.1 67 18 158/87 95 11/04/16 04:00 67 11/04/16 03:00 55 11/04/16 02:00 55 11/04/16 01:00 55 11/04/16 00:00 97.8 68 18 152/85 94 11/04/16 00:00 62 11/03/16 23:00 62 11/03/16 22:00 58 11/03/16 21:00 60 11/03/16 20:00 70 11/03/16 20:00 60 11/03/16 20:00 98.3 60 17 159/85 95 11/03/16 17:00 60 11/03/16 16:00 58 11/03/16 16:00 98.1 65 18 148/82 94 11/03/16 15:00 60 11/03/16 14:00 64 11/03/16 13:00 64 11/03/16 12:00 98.2 79 18 159/90 94 11/03/16 12:00 78 11/03/16 11:00 60 11/03/16 10:00 88 11/03/16 09:00 64 11/03/16 08:00 57 11/03/16 08:00 98.4 64 18 155/91 95 11/03/16 07:00 60 I/O 11/03/16 11/03/16 11/03/16 11/04/16 11/04/16 11/04/16 07:00 15:00 23:00 07:00 15:00 23:00 Intake Total 1320 ml 1461 ml Output Total 675 ml 915 ml Balance 645 ml 546 ml Intake Oral 680 ml 480 ml IV Total 640 ml 981 ml Output Urine Total 675 ml 915 ml # Voids 2 # Bowel Movements 1 0 Result Diagram: 11/03/1612 11/03/16711 Objective Remarks GENERAL: Patient lying in bed. Appears comfortable. Alert and oriented 3. SKIN: Warm and dry. HEAD: Normocephalic. EYES: No scleral icterus. No injection or drainage. NECK: Supple, trachea midline. No JVD. CARDIOVASCULAR: Regular rate and rhythm without murmurs, gallops, or rubs. Peripheral perfusion with capillary refill acceptable bilaterally. RESPIRATORY: Breath sounds equal bilaterally. No accessory muscle use. GASTROINTESTINAL: Abdomen soft, non-tender, nondistended. MUSCULOSKELETAL: No cyanosis, or edema. BACK: Nontender without obvious deformity. No CVA tenderness. A/P Assessment and Plan // Chest Pain: Acute onset of epigastric/substernal chest pain unrelieved by ASA/NTG, likely related to Alcoholic Gastritis. -Resolved. Negative troponin 3. Chest x-ray with no acute findings. Continue IV Protonix. -Echocardiogram with normal ejection fraction. 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 Corley consulted by ER physician, - -echocardiogram performed for risk stratification. Ejection fraction 55-60% -CT angiogram of aorta as above Appreciate vascular surgery assistance. //Hyponatremia on admission. 126 on admission. Improving. -Likely secondary to beer photomania. -Improved to sodium still 135 today with normal saline. -Continue half-normal saline //Chronic alcoholism. 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 Continue thiamine. DVT prophylaxis. SCDs/teds. As per surgical service. Discharge Planning Continued monitoring for hyponatremia, as well as abdominal aortic aneurysm. Nir Mack MD Nov 04, 2016 06:16 Nir Mack MD Nov 04, 2016 06:16
[2016-11-04] MEDS: SODIUM CHLORIDE 0.9% FLUSH 5 ML FLUSH FLUSH SCH ×2 (07:18→20:25)
[2016-11-04 08:00] LABS: AUTOMATED NEUTROPHIL # 2.7 TH/MM3 (1.8-7.7); BASOPHIL # 0.1 TH/MM3 (0-0.2); BASOPHIL % 1.4 % (0.0-2.0); EOSINOPHIL # 0.5 TH/MM3 (0-0.4); EOSINOPHIL % 9.2 % (0.0-4.0); HEMATOCRIT 36.7 % (39.0-51.0); HEMO FLAGS DIFF FINAL; LYMPH % 28.6 % (9.0-44.0); LYMPHOCYTE # 1.6 TH/MM3 (1.0-4.8); MEAN CELL VOLUME 93.1 FL (80.0-100.0); MEAN CORPUSCULAR HEMOGLOBIN 31.4 PG (27.0-34.0); MEAN CORPUSCULAR HGB CONC 33.8 % (32.0-36.0); NEUT % 49.8 % (16.0-70.0); PLATELET COUNT 188 TH/MM3 (150-450); RED BLOOD COUNT 3.94 MIL/MM3 (4.50-5.90); RED CELL DISTRIBUTION WIDTH 14.7 % (11.6-17.2); WHITE BLOOD COUNT 5.4 TH/MM3 (4.0-11.0)
[2016-11-04] MEDS: THIAMINE HCL 100 MG TAB PO SCH (08:02)
[2016-11-04] MEDS: PANTOPRAZOLE SODIUM 40 MG VIAL IV PUSH SCH ×2 (08:03→20:25)
[2016-11-04 08:28] LABS: BICARBONATE 26.9 MEQ/L (21.0-32.0); POTASSIUM 4.1 MEQ/L (3.5-5.1)
--- NOTE | 2016-11-04 08:41 | RADRPT ---
EXAM DATE/TIME: 11/03/2016 17:54 [facility] COMPARISON: No previous studies available for comparison. INDICATIONS : Evaluate for aneurysm. IV CONTRAST: 99 cc Omnipaque 350 (iohexol) IV RADIATION DOSE: 2.63 CTDIvol (mGy) MEDICAL HISTORY : Cardiovascular disease. Chronic obstructive pulmonary disease. SURGICAL HISTORY : Cholecystectomy. grafts in left leg ENCOUNTER: Initial ACUITY: 1 day PAIN SCALE: 5/10 LOCATION: substernal chest TECHNIQUE: Volumetric scanning was performed using a multi-row detector CT scanner. The data was post processed with a variety of visualization algorithms including full volume maximum intensity projection, multi -planar sliding thin slab reformation, curved planar reformation, and surface rendering techniques. Using automated exposure control and adjustment of the mA and/or kV according to patient size, radiat ion dose was kept as low as reasonably achievable to obtain optimal diagnostic quality images. FINDINGS: Examination of the lung matthew demonstrates no evidence of pulmonary nodule. No pleural fluid is iden tified. Examination of the mediastinum demonstrates no abnormally enlarged lymph nodes by CT criteria . No axillary or hilar abnormalities are identified. Coronary artery calcifications are present. The liver and spleen are normal in size and no focal defects are identified. The liver and spleen are nor mal in size and no focal defects are identified. There is benign-appearing calcification in segment 5 . The gallbladder is absent. The pancreas demonstrates normal contour without evidence of mass or chi sarwat dilatation. The adrenal glands and kidneys appear normal bilaterally. No hydronephrosis or mass l esions are identified. There is focal aneurysmal dilatation of the infrarenal abdominal aorta measuring approximately 2 cm i n diameter with the overall aneurysm measuring 4.7 x 2.4 CM. This only measures 2 cm in the craniocau alvin dimension. The renal artery origins are patent bilaterally. The celiac axis and superior mesenter ic artery origins are also patent. Examination of the right lower extremity demonstrates no evidence of inflow stenosis. The common femo ral artery is patent. There is focal stenosis in the distal right superficial femoral artery over a short segment of greater than 70% at the level of the adductor canal. The popliteal artery is patent. There is three-vessel runoff to the ankle. There is a patent right to left femoral-femoral bypass graft present. The superficial femoral artery is patent. The popliteal artery is patent. There is three-vessel runoff to the ankle. CONCLUSION: 1. Patent right to left femoral bypass graft 2. Short segment stenosis greater than 70% involving the distal right superficial femoral artery. 3. The left lower extremity is intact 4. Focal aneurysm of the infrarenal aorta with maximum dimension of 4.7 CM Sushant Suazo MD on November 04, 2016 at 8:28 Board Certified Radiologist. This report was verified electronically.
--- NOTE | 2016-11-04 21:16 | PD.VS.PN ---
Subjective Subjective/Hospital Course Without back or abdominal pain. Lower anterior sternal pain has subsided since admission. No other complaints. Objective Vitals/I&O Date Time Temp Pulse Resp B/P Pulse Ox O2 Delivery O2 Flow Rate FiO2 11/04/16 18:07 64 11/04/16 17:48 68 11/04/16 16:12 60 11/04/16 16:00 98.2 64 14 161/84 94 11/04/16 15:14 63 11/04/16 14:30 62 11/04/16 13:36 64 11/04/16 12:58 62 11/04/16 12:08 59 11/04/16 11:51 67 11/04/16 11:18 97.7 60 16 162/85 95 11/04/16 11:00 79 11/04/16 10:40 60 11/04/16 10:16 71 11/04/16 10:00 62 11/04/16 09:08 71 11/04/16 09:00 67 11/04/16 08:35 54 11/04/16 08:00 64 11/04/16 07:44 98.0 65 15 160/86 94 11/04/16 07:26 60 11/04/16 07:12 68 11/04/16 06:00 56 11/04/16 05:00 64 11/04/16 04:00 98.1 67 18 158/87 95 11/04/16 04:00 67 11/04/16 03:00 55 11/04/16 02:00 55 11/04/16 01:00 55 11/04/16 00:00 97.8 68 18 152/85 94 11/04/16 00:00 62 11/03/16 23:00 62 11/03/16 22:00 58 11/04/16 11/04/16 11/04/16 07:00 15:00 23:00 Intake Total 1461 ml Output Total 915 ml 225 ml Balance 546 ml -225 ml Physical Exam Palpable femoral pulses bilaterally. non-tender to palpation abdominal exam. Laboratory Laboratory Tests Test 11/04/16 07:44 White Blood Count 5.4 Red Blood Count 3.94 Hemoglobin 12.4 Hematocrit 36.7 Mean Corpuscular Volume 93.1 Mean Corpuscular Hemoglobin 31.4 Mean Corpuscular Hemoglobin 33.8 Concent Red Cell Distribution Width 14.7 Platelet Count 188 Mean Platelet Volume 7.9 Neutrophils (%) (Auto) 49.8 Lymphocytes (%) (Auto) 28.6 Monocytes (%) (Auto) 11.0 Eosinophils (%) (Auto) 9.2 Basophils (%) (Auto) 1.4 Neutrophils # (Auto) 2.7 Lymphocytes # (Auto) 1.6 Monocytes # (Auto) 0.6 Eosinophils # (Auto) 0.5 Basophils # (Auto) 0.1 CBC Comment DIFF FINAL Differential Comment Sodium Level 136 Potassium Level 4.1 Chloride Level 103 Carbon Dioxide Level 26.9 Anion Gap 6 Blood Urea Nitrogen 10 Creatinine 0.68 Estimat Glomerular Filtration 116 Rate Random Glucose 93 Calcium Level 8.8 Imaging Last 48 hours Impressions Aorta w/Runoff CTA 11/03/16 0000 Signed Impressions: Service Date/Time: Thursday, November 03, 2016 17:54 - CONCLUSION: 1. Patent right to left femoral bypass graft 2. Short segment stenosis greater than 70%% involving the distal right superficial femoral artery. 3. The left lower extremity is intact 4. Focal aneurysm of the infrarenal aorta with maximum dimension of 4.7 CM Sushant Suazo MD Assessment and Plan Assessment: (1) AAA (abdominal aortic aneurysm) Status: Acute Plan Patient is 71 year old smoker with COPD and PAD who has had multilpe arterial bypasses in the past. Infrarenal 4.7 cm infrarenal AAA on CTA This AAA appears to be asymptomatic, More sac like appearing AAA but appears intact. Patient would qualify for endograft treatment of AAA but with fem-fem bypass would have to embolize left hypogastric artery as part of treatment with aortouniiliac artery endograft. With patency rates of fem-fem bypass would be at risk of limb threatening ischemia in future if bypass failed. Best course of treatment at this time would be to have patient follow up in one month with repeat CTA of aorta with surveillance of fem-fem and left fem-pop bypass. Appointment will be arranged with patient for follow up in one month in our office. This will be arranged with patient before discharge. Miles Corley DO, FACS Draw [employer] T[employer] of Vascular Surgery /[place] Problem Qualifiers (1) AAA (abdominal aortic aneurysm): Qualified Code: I71.4 - Abdominal aortic aneurysm (AAA) without rupture Miles Corley DO Nov 04, 2016 21:16
[2016-11-04] MEDS: MULTIVITAMIN INJ 10 ML, FOLIC ACID INJ 1 MG in SODIUM CHLORID 0.9% 500 ML INJ 500 ML IV SCH (22:00)
--- NOTE | 2016-11-04 23:39 | HHI.PR ---
Subjective Remarks pt says he feels well. no CP no SOB. BM yesterday. Objective Vital Signs Date Time Temp Pulse Resp B/P Pulse Ox O2 Delivery O2 Flow Rate FiO2 11/04/16 18:07 64 11/04/16 17:48 68 11/04/16 16:12 60 11/04/16 16:00 98.2 64 14 161/84 94 11/04/16 15:14 63 11/04/16 14:30 62 11/04/16 13:36 64 11/04/16 12:58 62 11/04/16 12:08 59 11/04/16 11:51 67 11/04/16 11:18 97.7 60 16 162/85 95 11/04/16 11:00 79 11/04/16 10:40 60 11/04/16 10:16 71 11/04/16 10:00 62 11/04/16 09:08 71 11/04/16 09:00 67 11/04/16 08:35 54 11/04/16 08:00 64 11/04/16 07:44 98.0 65 15 160/86 94 11/04/16 07:26 60 11/04/16 07:12 68 11/04/16 06:00 56 11/04/16 05:00 64 11/04/16 04:00 98.1 67 18 158/87 95 11/04/16 04:00 67 11/04/16 03:00 55 11/04/16 02:00 55 11/04/16 01:00 55 11/04/16 00:00 97.8 68 18 152/85 94 11/04/16 00:00 62 I/O 11/03/16 11/03/16 11/03/16 11/04/16 11/04/16 11/04/16 07:00 15:00 23:00 07:00 15:00 23:00 Intake Total 1320 ml 1461 ml Output Total 675 ml 915 ml 225 ml Balance 645 ml 546 ml -225 ml Intake Oral 680 ml 480 ml IV Total 640 ml 981 ml Output Urine Total 675 ml 915 ml 225 ml # Voids 2 1 # Bowel Movements 1 0 Result Diagram: 11/04/1644 11/04/16743 Objective Remarks GENERAL: Patient lying in bed. Appears comfortable. Alert and oriented 3. SKIN: Warm and dry. HEAD: Normocephalic. EYES: No scleral icterus. No injection or drainage. NECK: Supple, trachea midline. No JVD. CARDIOVASCULAR: Regular rate and rhythm without murmurs, gallops, or rubs. Peripheral perfusion with capillary refill acceptable bilaterally. unchanged RESPIRATORY: Breath sounds equal bilaterally. No accessory muscle use. GASTROINTESTINAL: Abdomen soft, non-tender, nondistended. MUSCULOSKELETAL: No cyanosis, or edema. BACK: Nontender without obvious deformity. No CVA tenderness. A/P Assessment and Plan // Chest Pain: Acute onset of epigastric/substernal chest pain unrelieved by ASA/NTG, likely related to Alcoholic Gastritis. -Resolved. Negative troponin 3. Chest x-ray with no acute findings. Continue IV Protonix. -Echocardiogram with normal ejection fraction. 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 Corley consulted by ER physician, - -echocardiogram performed for risk stratification. Ejection fraction 55-60% -CT angiogram of aorta as above Appreciate vascular surgery assistance. f/u outpt. //Hyponatremia on admission. 126 on admission. Improving. -Likely secondary to beer photomania. -Improved to sodium still 135 today with normal saline. -Continue half-normal saline //Chronic alcoholism. 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 Continue thiamine. DVT prophylaxis. SCDs/teds. As per surgical service. Discharge Planning DC home tomorrow morning. Nir Mack MD Nov 04, 2016 23:39
[2016-11-05] VITALS (15 sets, daily range): BP systolic 158–187; BP diastolic 87–98; PULSE 55–74; RESP 17–20; TEMP 97.1–97.9; O2SAT 95–96
[2016-11-05 07:41] LABS: BICARBONATE 27.1 MEQ/L (21.0-32.0); POTASSIUM 3.9 MEQ/L (3.5-5.1)
[2016-11-05] MEDS ORDERED: NIFEdipine 30 MG SUSTAINED RELEASE TAB PO ONE (09:30)
[2016-11-05] MEDS: THIAMINE HCL 100 MG TAB PO SCH (09:32)
[2016-11-05] MEDS: PANTOPRAZOLE SODIUM 40 MG VIAL IV PUSH SCH (09:32)
[2016-11-05] MEDS: SODIUM CHLORIDE 0.9% FLUSH 5 ML FLUSH FLUSH SCH (09:33)
[2016-11-05] MEDS ORDERED: PANT20TA2 PO (10:25)
[2016-11-05] MEDS ORDERED: NIFE30TA8 PO (10:25)
[2016-11-05] MEDS ORDERED: ASPI1TAB69 PO (10:25)
[2016-11-05] MEDS ORDERED: CLON0.1T PO (11:50)
[2016-11-05] MEDS ORDERED: cloNIDine HCL 0.1 MG TAB PO ONE (12:00)
[2016-11-05] MEDS ORDERED: cloNIDine HCL 0.1 MG TAB PO SCH (21:00)
[2016-11-06] MEDS ORDERED: NIFEdipine 30 MG SUSTAINED RELEASE TAB PO SCH (09:00)
--- NOTE | 2016-12-12 15:26 | HHI.DS ---
Discharge Summary Admission Date Nov 01, 2016 at 21:50 Discharge Date: Nov 05, 2016 Admitting Diagnosis AAA, chest pain, hyponatremia (1) Chest pain ICD Code: R07.9 (2) AAA (abdominal aortic aneurysm) ICD Code: I71.4 (3) Hyponatremia ICD Code: E87.1 (4) Alcohol abuse ICD Code: F10.10 (5) Tobacco abuse ICD Code: Z72.0 Procedures no invasive procedures performed Brief History - From Admission This is a 71-year-old male with a PMH of COPD, Alcohol Abuse and Tobacco Abuse who was brought to the ER by EMS secondary to chest pain. States he was hanging out with friends at home and had drank 2 pitchers of beer when he felt sudden epigastric/substernal pain. S/p ASA and NTG by EMS w/ no significant improvement. On arrival, pt acutely intoxicated. Admits to drinking 1-2 pitchers of beer/day. BP 137/80, HR 68, O2 sat 98% on RA, Afebrile. CBC unremarkable. Na 126. INR normal. Alcohol 212. CXR w/ no acute findings. 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 Dr. Corley consulted by ER physician, recommended NPO status and will evaluate in am. Imaging Last Impressions Aorta w/Runoff CTA 11/03/16 0000 Signed Impressions: Service Date/Time: Thursday, November 03, 2016 17:54 - CONCLUSION: 1. Patent right to left femoral bypass graft 2. Short segment stenosis greater than 70%% involving the distal right superficial femoral artery. 3. The left lower extremity is intact 4. Focal aneurysm of the infrarenal aorta with maximum dimension of 4.7 CM Sushant Suazo MD Abdomen/Pelvis CT 11/01/16 1833 Signed Impressions: Service Date/Time: Tuesday, November 01, 2016 19:56 - CONCLUSION: 1. Saccular pouching from the left posterolateral wall of the infrarenal abdominal aorta measuring up to 3 x 2.4 cm. Etiology unclear but possibly a thrombosed saccular aneurysm. 2. 3.1 cm infrarenal abdominal aortic aneurysm also present with partial mural thrombus. 3. Previous femoral to femoral artery shunt present. 4. Distended stomach with air-fluid level. Dion Curtis MD Chest X-Ray 11/01/16 1810 Signed Impressions: Service Date/Time: Tuesday, November 01, 2016 18:34 - CONCLUSION: 1. No active disease. Metallic screw seen in the coracoclavicular region on the right. Dion Curtis MD Hospital Course Vascular surgery evaluated patient, and recommends follow-up outpatient for possible surgical correction of abdominal aortic aneurysm. Patient's blood pressure was found to be elevated, and blood pressure medications were added. Echocardiogram was performed, did not show any regional wall motion abnormalities. Troponins negative 3. Is most likely that patient's acute epigastric pain was secondary to alcoholic gastritis. For problem-based summary from most recent progress note, please see below.. // Chest Pain: Acute onset of epigastric/substernal chest pain unrelieved by ASA/NTG, likely related to Alcoholic Gastritis. -Resolved. Negative troponin 3. Chest x-ray with no acute findings. Continue IV Protonix. -Echocardiogram with normal ejection fraction. 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 Corley consulted by ER physician, - -echocardiogram performed for risk stratification. Ejection fraction 55-60% -CT angiogram of aorta as above Appreciate vascular surgery assistance. f/u outpt. //Hyponatremia on admission. 126 on admission. Improving. -Likely secondary to beer photomania. -Improved to sodium still 135 today with normal saline. -Continue half-normal saline //Chronic alcoholism. 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 Continue thiamine. DVT prophylaxis. SCDs/teds. As per surgical service. Pt Condition on Discharge: Good Discharge Disposition: Discharge Home Discharge Time: <= 30 minutes Discharge Instructions DIET: Follow Instructions for: Heart Healthy Diet Activities you can perform: Regular-No Restrictions Follow up Referrals: PCP Follow-up - 1 Week Vascular Surgery - 2 Weeks with Miles Corley V. DO Additional Information discharge medication list New: Aspirin 81 mg Protonix 20 mg daily Nifedipine 30 mg long-acting daily. Continue : simvastatin 40 mg Nir Mack MD Dec 12, 2016 15:26
== END 2016-11-05 12:50 | disposition home or self-care (01) | DRG 392 ==
LOC: NEPC 18:05 → NEDA 21:50 → HCIN 11-02 01:05
PROVIDERS: ADMIT Internal Medicine; ATTEND Internal Medicine
DX: K29.20 Alcoholic gastritis without bleeding (principal); E87.1 Hypo-osmolality and hyponatremia; J44.9 Chronic obstructive pulmonary disease, unspecified; F43.10 Post-traumatic stress disorder, unspecified; E78.00 Pure hypercholesterolemia, unspecified; F17.210 Nicotine dependence, cigarettes, uncomplicated; Z88.8 Allergy status to other drugs, medicaments and biological substances; E78.5 Hyperlipidemia, unspecified; R47.81 Slurred speech; F10.229 Alcohol dependence with intoxication, unspecified; E86.0 Dehydration
CPT/HCPCS: 71010; 74177; 75635; 80048; 80053; 80320; 82550; 82552; 82948; 83690; 83735; 83880; 84484; 85025; 85610; 85730; 93005; 93306; 96360; C9113; J3411; J7030; J7040; Q9967

== ENCOUNTER 2016-11-10 13:37 | Emergency (ER) | payer OTHER ==
[~2016-11-10] VITALS: Ht 182.9 cm; Wt 79.0 kg
[~2016-11-10 13:37] MED LIST changes: +ASPI1TAB69 PO; +CLON0.1T PO; +NIFE30TA8 PO; +PANT20TA2 PO; +SIMV40TA PO; -ZITH250T PO; -ZOCO40TA PO
[2016-11-10 13:41] VITALS: BP 140/90; PULSE 121; RESP 16; TEMP 97.9; O2SAT 98
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
--- NOTE | 2016-11-10 14:04 | PD ---
Data Data Last Documented VS Vital Signs Date Time Temp Pulse Resp B/P Pulse Ox O2 Delivery O2 Flow Rate FiO2 11/10/16 14:18 97 Room Air 11/10/16 13:41 97.9 121 16 140/90 Orders Basic Metabolic Panel (Bmp) (11/10/16 14:01) Complete Blood Count With Diff (11/10/16 14:01) Magnesium (Mg) (11/10/16 14:01) Diltiazem Inj (Cardizem Inj) (11/10/16 14:15) Ecg Monitoring (11/10/16 14:12) Bilateral Bp Monitoring (11/10/16 14:12) Iv Access Insert/Monitor (11/10/16 14:12) Oximetry (11/10/16 14:12) Oxygen Administration (11/10/16 14:12) Sodium Chloride 0.9% Flush (Ns Flush) (11/10/16 14:15) MDM Supervised Visit with WAYNE: Yes Narrative Course I, Dr. Rodrigues, have reviewed the advance practice practioner's documentation and am in agreement, met with the patient face to face, made the diagnosis, and the medical decision making was done by me. *My assessment and Findings: 71-year-old male with history of COPD still smoking here with abnormal heart rhythm. He was at his PCP office for routine exam and his heart rate was "jumping around". EKG noted A. fib with RVR and he was transported here. Patient is entirely asymptomatic. A. fib with RVR on monitor and heart rate in the 110s to 120s. Otherwise exam is unremarkable. Differential includes new-onset A. fib, or other arrhythmia electrolyte abnormality, symptomatic anemia. EKG shows A. fib with RVR, rate [address] abnormalities, normal intervals. Patient will be given IV diltiazem, and we'll check electrolytes. If these are normal and his rate is controlled we'll start on oral rate control medication. Chads 2 score is 0 and he does not need anticoagulation at this time. Diagnosis Primary Impression: Atrial fibrillation with RVR Flaquita Rodrigues MD Nov 10, 2016 14:04
[2016-11-10] MEDS ORDERED: DILTIAZEM HCL 25 MG/5 ML VIAL IV ONE (14:15)
[2016-11-10] MEDS ORDERED: SODIUM CHLORIDE 0.9% FLUSH 5 ML FLUSH IVF PRN (14:15)
[2016-11-10 14:18] VITALS: O2SAT 98
[2016-11-10 14:58] VITALS: BP 158/73; PULSE 82; RESP 18; O2SAT 98
[2016-11-10 15:00] VITALS: BP 145/74; PULSE 72; RESP 18
[2016-11-10 15:03] VITALS: BP 145/75; PULSE 61; RESP 20; O2SAT 96
[2016-11-10 15:12] LABS: AUTOMATED NEUTROPHIL # 4.2 TH/MM3 (1.8-7.7); BASOPHIL # 0.1 TH/MM3 (0-0.2); BASOPHIL % 1.3 % (0.0-2.0); EOSINOPHIL # 0.3 TH/MM3 (0-0.4); EOSINOPHIL % 3.2 % (0.0-4.0); HEMATOCRIT 41.7 % (39.0-51.0); HEMO FLAGS DIFF FINAL; LYMPH % 31.6 % (9.0-44.0); LYMPHOCYTE # 2.5 TH/MM3 (1.0-4.8); MEAN CELL VOLUME 91.9 FL (80.0-100.0); MEAN CORPUSCULAR HEMOGLOBIN 32.4 PG (27.0-34.0); MEAN CORPUSCULAR HGB CONC 35.3 % (32.0-36.0); MONO % 11.1 % (0.0-8.0); NEUT % 52.8 % (16.0-70.0); PLATELET COUNT 256 TH/MM3 (150-450); RED BLOOD COUNT 4.54 MIL/MM3 (4.50-5.90); RED CELL DISTRIBUTION WIDTH 15.1 % (11.6-17.2); WHITE BLOOD COUNT 7.9 TH/MM3 (4.0-11.0)
[2016-11-10 15:31] LABS: BICARBONATE 27.7 MEQ/L (21.0-32.0); MAGNESIUM 2.1 MG/DL (1.5-2.5); POTASSIUM 4.5 MEQ/L (3.5-5.1)
[2016-11-10] MEDS ORDERED: METO25TA3 PO (15:41)
--- NOTE | 2016-11-11 10:38 | EKG ---
Date Performed: 11/10/2016 Time Performed: 13:49:02 PTAGE: 71 years EKG: ATRIAL FIBRILLATION WITH RAPID VENTRICULAR RESPONSE ABNORMAL RHYTHM ECG Compared to PREVIOUS TRACING atrial fibrillation is new. PREVIOUS TRACIN11/01/2016 18.22 DOCTOR: Enrike Villarreal Interpretating Date/Time 11/11/2016 10:36:49
== END 2016-11-10 16:16 | disposition home or self-care (01) ==
LOC: NEPE 13:37
DX: I48.91 Unspecified atrial fibrillation (principal); F17.200 Nicotine dependence, unspecified, uncomplicated; F10.10 Alcohol abuse, uncomplicated; I71.4 Abdominal aortic aneurysm, without rupture; E78.00 Pure hypercholesterolemia, unspecified; Z87.09 Personal history of other diseases of the respiratory system; Z86.79 Personal history of other diseases of the circulatory system; Z87.39 Personal history of other diseases of the musculoskeletal system and connective tissue; Z86.59 Personal history of other mental and behavioral disorders; Z87.448 Personal history of other diseases of urinary system; Z86.69 Personal history of other diseases of the nervous system and sense organs
CPT/HCPCS: 80048; 83735; 85025; 93005; 96374

== ENCOUNTER 2016-12-07 10:30 | Observation (INO) | payer OTHER, MEDICARE ==
[~2016-12-07] VITALS: Ht 182.9 cm; Wt 90.8 kg
[2016-12-07] VITALS (7 sets, daily range): BP systolic 121–154; BP diastolic 74–109; PULSE 56–110; RESP 15–24; TEMP 96–98.6; O2SAT 90–98
[~2016-12-07 10:30] MED LIST changes: +METO25TA3 PO
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
[2016-12-07] MEDS ORDERED: LORazepam 2 MG/ML VIAL IV PUSH ONE (11:00)
[2016-12-07] MEDS ORDERED: SODIUM CHLORID 0.9% 500 ML INJ 500 ML IV ONE (11:00)
[2016-12-07] MEDS ORDERED: HYDROmorphone HCL PF 1 MG/ML VIAL IV PUSH ONE (11:00)
[2016-12-07] MEDS ORDERED: KETOROLAC TROMETHAMINE 30 MG/ML (IVP) VIAL IV PUSH ONE (11:00)
[2016-12-07] MEDS ORDERED: METH500T3 PO (11:07)
[2016-12-07] MEDS ORDERED: OMEP20TA PO (11:07)
[2016-12-07 11:19] LABS: AUTOMATED NEUTROPHIL # 3.1 TH/MM3 (1.8-7.7); BASOPHIL # 0.1 TH/MM3 (0-0.2); BASOPHIL % 1.3 % (0.0-2.0); EOSINOPHIL # 0.4 TH/MM3 (0-0.4); EOSINOPHIL % 7.1 % (0.0-4.0); HEMATOCRIT 45.7 % (39.0-51.0); HEMO FLAGS DIFF FINAL; LYMPH % 31.6 % (9.0-44.0); MEAN CELL VOLUME 91.8 FL (80.0-100.0); MEAN CORPUSCULAR HEMOGLOBIN 31.3 PG (27.0-34.0); MEAN CORPUSCULAR HGB CONC 34.1 % (32.0-36.0); MONO % 9.6 % (0.0-8.0); NEUT % 50.4 % (16.0-70.0); PLATELET COUNT 286 TH/MM3 (150-450); RED BLOOD COUNT 4.97 MIL/MM3 (4.50-5.90); RED CELL DISTRIBUTION WIDTH 14.9 % (11.6-17.2); WHITE BLOOD COUNT 6.2 TH/MM3 (4.0-11.0)
[2016-12-07 12:43] LABS: BICARBONATE 28.3 MEQ/L (21.0-32.0); POTASSIUM 4.1 MEQ/L (3.5-5.1)
[2016-12-07] MEDS ORDERED: IOHEXOL 350 MG/ML 10 ML VIAL (for RAD DIAG) IV ONE (13:08)
--- NOTE | 2016-12-07 13:24 | RADRPT ---
EXAM DATE/TIME: 12/07/2016 12:55 [facility] COMPARISON: No previous studies available for comparison. INDICATIONS : Mid chest pain radiating posteriorly. Evaluate for pulmonary embolism. IV CONTRAST: 74 cc Omnipaque 350 (iohexol) IV RADIATION DOSE: 10.31 CTDIvol (mGy) MEDICAL HISTORY : Cardiovascular disease. Aneurysm, abdominal. SURGICAL HISTORY : Cholecystectomy. Femoral artery bypass. ENCOUNTER: Initial ACUITY: 2 weeks PAIN SCALE: 4/10 LOCATION: chest TECHNIQUE: Volumetric scanning of the chest was performed using a pulmonary embolism protocol MIP images were re constructed. Using automated exposure control and adjustment of the mA and/or kV according to patien t size, radiation dose was kept as low as reasonably achievable to obtain optimal diagnostic quality images. FINDINGS: PULMONARY ARTERIES: No filling defects are seen in the pulmonary arteries through the segmental level. LUNGS: There is no consolidation or pneumothorax . No concerning pulmonary nodule is visualized. PLEURAE: There is no pleural thickening or pleural effusion. MEDIASTINUM: There is good visualization of the great vessels of the middle mediastinum. No evidence of mediastin al or hilar adenopathy/mass. MUSCULOSKELETAL: Within normal limits for patient age. MISCELLANEOUS: The visualized upper abdominal organs demonstrate no acute abnormality. There is mild aneurysmal dila tation of the abdominal aorta measuring 3.1 cm on the last image obtained for the CT of the chest. Th e abdominal aorta is incompletely evaluated on this pulmonary CTA. The patient did have a CTA runoff performed in October 2016. CONCLUSION: No pulmonary embolus. Rubin Spears MD on December 07, 2016 at 13:20 Board Certified Radiologist. This report was verified electronically.
--- NOTE | 2016-12-07 14:23 | RADRPT ---
EXAM DATE/TIME: 12/07/2016 12:51 [facility] COMPARISON: No previous studies available for comparison. INDICATIONS : Neck and mid back pain. No known injury. RADIATION DOSE: 26.11 CTDIvol (mGy) MEDICAL HISTORY : Cardiovascular disease. Aneurysm, abdominal. SURGICAL HISTORY : Cholecystectomy. Femoral artery bypass. ENCOUNTER: Initial ACUITY: 2 weeks PAIN SCALE: 4/10 LOCATION: neck TECHNIQUE: Volumetric scanning of the cervical spine was performed. Multiplanar reconstructions in the sagittal, coronal and oblique axial planes were performed. Using automated exposure control and adjustment o f the mA and/or kV according to patient size, radiation dose was kept as low as reasonably achievable to obtain optimal diagnostic quality images. FINDINGS: VERTEBRAE: The cervical vertebral bodies are normal in height and normally aligned. There is a prominent concav e deformity at the anterior inferior aspect of the T1 vertebral body. An acute fracture is not seen. This suggests this is likely chronic. The craniovertebral junction is intact. The C1 ring is inta ct. The C1-C2 articulation is normal. C2-C3: The posterior disc margin is grossly intact. Significant narrowing of thecal sac is not seen. There is mild facet hypertrophy. C3-C4: The posterior disc margin is grossly intact. Significant spinal stenosis is not appreciated. There is mild facet hypertrophy. The neural foramina are grossly intact. C4-C5: Disc space intact. There is no spinal stenosis of the neural foramina. There is mild facet hypertro phy. C5-C6: Disc space is narrowed, there is posterior osteophytic ridging causing a mild impression on the anter ior thecal sac especially on the right. There is right uncovertebral body hypertrophy. There is bryan rowing of the neural foramina bilaterally being worse on the right. There is mild facet hypertrophy. C6-C7: There is mild diffuse disc bulge. The neural foramina are grossly normal. The facet joints are inta ct. C7-T1: Intact. There does appear to be some chronic re-modeling at the spinous process of T1 which may be from a myesha or injury. CONCLUSION: 1. Prominent concave deformity at the anterior inferior aspect of the T1 vertebral body. It appears the anterior aspect of the T1 vertebral body has lost approximately half its original height. This d oes not appear to be associated with an acute fracture and likely it is chronic. There also appears to be some chronic change of the spinous process at this level. 2. Degenerative change at the C5-6 and C6-7 levels causing at least mild narrowing of the thecal sac at these levels. Rubin Spears MD on December 07, 2016 at 13:34 Board Certified Radiologist. This report was verified electronically.
--- NOTE | 2016-12-07 14:32 | RADRPT ---
EXAM DATE/TIME: 12/07/2016 12:55 [facility] COMPARISON: CT ABDOMEN & PELVIS W CONTRAST, November 01, 2016, 19:56. CHEST SINGLE AP, F ebruary 2016, 18:34. CTA RUNOFF W 3D RECON, November 03, 2016, 17:54. INDICATIONS : Neck and mid back pain. No known injury. RADIATION DOSE: ; Reconstructed from previous dataset MEDICAL HISTORY : Cardiovascular disease. Aneurysm, abdominal. SURGICAL HISTORY : Cholecystectomy. Femoral artery bypass. ENCOUNTER: Initial ACUITY: 2 weeks PAIN SCALE: 4/10 LOCATION: thoracic TECHNIQUE: Volumetric scanning of the thoracic spine was performed. Multiplanar reconstructions in the sagittal, coronal and oblique axial planes were performed. Using automated exposure control a nd adjustment of the mA and/or kV according to patient size, radiation dose was kept as low as reason ably achievable to obtain optimal diagnostic quality images. FINDINGS: VERTEBRAE: There is loss of height at the T1 and T6 vertebral bodies. At the T1 vertebral body th ere is a concave body at the anterior inferior aspect of the T1 vertebral body. It appears that the anterior aspect of the T1 vertebral body has lost half its height. The deformity at the T6 vertebral body appears to be compression deformity at the superior end plate. The central aspect of the T6 ve rtebral body has lost at least half its height. Acute fractures are not seen at the T1 vertebral bod y. There are some areas of lucency at the superior aspect of T6. The age of this deformity may be m ore acute. There remaining thoracic vertebral bodies are normal in height. T1-T2: Normal. T2-T3: The thecal sac has a normal diameter. No evidence of disc bulge or protrusion. T3-T4: The thecal sac has a normal diameter. No evidence of disc bulge or protrusion. T4-T5: The thecal sac has a normal diameter. No evidence of disc bulge or protrusion. T5-T6: Again noted is the fracture deformity at the T6 vertebral body. There is some minimal buckl ing of the posterior superior aspect of the T6 vertebral body. Significant narrowing of the thecal s ac however is not appreciated. T6-T7: The thecal sac has a normal diameter. No evidence of disc bulge or protrusion. T7-T8: The thecal sac has a normal diameter. No evidence of disc bulge or protrusion. T8-T9: The thecal sac has a normal diameter. No evidence of disc bulge or protrusion. T9-T10: The thecal sac has a normal diameter. No evidence of disc bulge or protrusion. T10-T11: The thecal sac has a normal diameter. No evidence of disc bulge or protrusion. T11-T12: The thecal sac has a normal diameter. No evidence of disc bulge or protrusion. T12-L1: The thecal sac has a normal diameter. No evidence of disc bulge or protrusion. CONCLUSION: 1. Compression deformities at the T1 and T6 vertebral bodies. The T1 compression deformity is likel y chronic. There is some suggestion of fracture line seen at the superior aspect of T6 suggest this may be a more recent compression deformity. Prior studies are unavailable. Significant narrowing of the thecal sac is not seen. Rubin Spears MD on December 07, 2016 at 13:54 Board Certified Radiologist. This report was verified electronically.
[2016-12-07] MEDS ORDERED: NALOXONE HCL 0.4 MG/ML AMP IV PRN (15:15)
[2016-12-07] MEDS ORDERED: ACETAMINOPHEN 325 MG TAB PO PRN (15:15)
[2016-12-07] MEDS ORDERED: SODIUM CHLORIDE 0.9% FLUSH 5 ML FLUSH FLUSH PRN (15:15)
[2016-12-07] MEDS ORDERED: METOCLOPRAMIDE HCL 10 MG/2 ML VIAL IV PUSH PRN (15:15)
[2016-12-07] MEDS ORDERED: ONDANSETRON HCL 4 MG/2 ML VIAL IVP PRN (15:15)
[2016-12-07] MEDS ORDERED: BISACODYL 10 MG SUPP PR PRN (15:15)
--- NOTE | 2016-12-07 15:28 | HHI.HP ---
[facility] [place] [facility] Primary Care Physician No Primary Care Physician Admission Diagnosis thoracic compression fracture, intractable pain Diagnoses: Chief Complaint: Intractable Thoracic spine pain Travel History International Travel<30 Days: No Contact w/Intl Traveler <30 Da: No Traveled to Known Affected Are: No History of Present Illness This is a pleasant 71 y/o Male with OA, PTSD, CAD, Hyperlipidemia, COPD, Hypertension who states he has Thoracic pain that started two weeks ago, without trauma, he states he went to [place] and was given muscle relaxants but not helping him, the pain is 10/10 in intensity, he woke up this morning with severe pain and decided to come to ER for evaluation, sent for MRI and was found probable T6 fracture asked for Neurosurgical consult given , pain Medicine, Muscle relaxants and antiinflammatory medicine. no tingling sensation or decreased sensation. His in the room Mrs. Victoria Vasquez. Past Family Social History Past Medical History OA PTSD CAD Hyperlipidemia COPD Hypertension Past Surgical History Abdominal Surgery Right Shoulder surgery Cholecystectomy Reported Medications Reported Meds & Active Scripts Active Metoprolol Tartrate 25 Mg Tab 25 Mg PO BID Clonidine (Clonidine HCl) 0.1 Mg Tab 0.1 Mg PO BID Aspirin 81 Mg Tabdr 81 Mg PO DAILY 30 Days Nifedipine ER 24 HR (Nifedipine) 30 Mg Tab 30 Mg PO DAILY 30 Days Reported Methocarbamol 500 Mg Tab 250 Mg PO BID Omeprazole 20 Mg Tab 20 Mg PO DAILY Simvastatin 40 Mg Tab 40 Mg PO HS Allergies: Coded Allergies: Trazodone (Verified Allergy, Intermediate, ERECTION FOR DAYS, 12/07/16) Active Ordered Medications Current Medications Medications (Trade) Dose Ordered Sig/Amber Route Start Time Stop Time Status Last Admin (Catapres) 0.1 mg BID PO 12/07/16 21:00 (Lopressor) 25 mg BID PO 12/07/16 21:00 (Procardia Xl) 30 mg DAILY PO 12/08/16 09:00 (Protonix) 20 mg DAILY PO 12/08/16 09:00 Pravastatin Sodium 80 mg 80 mg HS PO 12/07/16 21:00 (NS 1000 ml Inj) 1,000 ml @ 100 mls/hr Q10H IV 12/07/16 15:06 (NS Flush) 2 ml UNSCH PRN FLUSH 12/07/16 15:15 (NS Flush) 2 ml BID FLUSH 12/07/16 21:00 (Tylenol) 650 mg Q4H PRN PO 12/07/16 15:15 (Zofran Inj) 4 mg Q6H PRN IVP 12/07/16 15:15 (Reglan Inj) 5 mg Q6H PRN IV PUSH 12/07/16 15:15 (Dulcolax Supp) 10 mg DAILY PRN [place] 12/07/16 15:15 (Colace) 100 mg Q12H PO 12/07/16 20:00 (Heparin Inj) 5,000 units Q8H SQ 12/07/16 16:00 (Narcan Inj) 0.4 mg UNSCH PRN IV 12/07/16 15:15 Family History Brother with Cancer do not know which one, Mother with status post Stroke. Social History Drinks 12 beer daily Smokes one Pack of cigarettes daily Physical Exam Vital Signs Vital Signs Date Time Temp Pulse Resp B/P Pulse Ox O2 Delivery O2 Flow Rate FiO2 12/07/16 11:25 68 20 149/82 98 Room Air 12/07/16 10:37 97.7 110 24 154/109 90 Room Air Physical Exam GENERAL: Awake, alert, moderate to significant distress, looks older than his age SKIN: Warm and dry.Cupping estevez on the upper back going across the back HEAD: Atraumatic. Normocephalic. EYES: Pupils equal and round. No scleral icterus. No injection or drainage. ENT: No nasal bleeding or discharge. Mucous membranes pink and moist. NECK: Trachea midline. No JVD. CARDIOVASCULAR: Regular rate and rhythm. No murmur appreciated. RESPIRATORY: No accessory muscle use. Clear to auscultation. Breath sounds equal bilaterally. GASTROINTESTINAL: Abdomen soft, non-tender, nondistended. Hepatic and splenic margins not palpable. MUSCULOSKELETAL: No obvious deformities. No clubbing. No cyanosis. No edema. Significant paraspinal spasm NEUROLOGICAL: Awake and alert. No obvious cranial nerve deficits. Motor grossly within normal limits. Normal speech. PSYCHIATRIC: Appropriate mood and affect; insight and judgment normal. Laboratory Laboratory Tests Test 12/07/16 12/07/16 11:00 12:07 White Blood Count 6.2 Red Blood Count 4.97 Hemoglobin 15.6 Hematocrit 45.7 Mean Corpuscular Volume 91.8 Mean Corpuscular Hemoglobin 31.3 Mean Corpuscular Hemoglobin 34.1 Concent Red Cell Distribution Width 14.9 Platelet Count 286 Mean Platelet Volume 8.0 Neutrophils (%) (Auto) 50.4 Lymphocytes (%) (Auto) 31.6 Monocytes (%) (Auto) 9.6 Eosinophils (%) (Auto) 7.1 Basophils (%) (Auto) 1.3 Neutrophils # (Auto) 3.1 Lymphocytes # (Auto) 2.0 Monocytes # (Auto) 0.6 Eosinophils # (Auto) 0.4 Basophils # (Auto) 0.1 CBC Comment DIFF FINAL Differential Comment Sodium Level 135 Potassium Level 4.1 Chloride Level 103 Carbon Dioxide Level 28.3 Anion Gap 4 Blood Urea Nitrogen 10 Creatinine 0.72 Estimat Glomerular Filtration 108 Rate Random Glucose 96 Calcium Level 8.9 Result Diagram: 12/07/16 1100 12/07/16 1207 Assessment and Plan Assessment and Plan 1. Intractable upper Thoracic spine pain, found suspected T6 Compression Fracture, will continue Muscle relaxant, Pain medicine and antiinflammatory medicine. consult Neurosurgery. 2. OA stable 3. PTSD by history continue Home medicines 4. CAD by history 5. Hyperlipidemia continue Statins 6. COPD stable non exacerbated on Bronchodilator, Mucolytic and Incentive spirometry 7. Hypertension controlled. 8. tobacco dependence strongly recommended to stop smoking. 9. Alcohol dependence started on Thiamin, Folic Acid and multivitamin, CIWA protocol DVT prophylaxis with Heparin Code Status Full Code. Discussed Condition With Patient, his in the room and Emergency Medicine Specialist. Physician Certification 2 Midnight Certification Type: Admission for Inpatient Services Order for Inpatient Services The services are ordered in accordance with Medicare regulations or non- Medicare payer requirements, as applicable. In the case of services not specified as inpatient-only, they are appropriately provided as inpatient services in accordance with the 2-midnight benchmark. Estimated LOS (days): 1 days is the estimated time the patient will need to remain in the hospital, assuming treatment plan goals are met and no additional complications. Post-Hospital Plan: Not yet determined Dagoberto Luna MD Dec 07, 2016 15:28
[2016-12-07] MEDS: SODIUM CHLOR 0.9% 1000 ML INJ 1,000 ML IV SCH ×2 (17:09→22:57)
[2016-12-07] MEDS: HEPARIN SODIUM - SQ 10,000 UNITS/ML VIAL SQ SCH ×2 (17:09→22:56)
[2016-12-07] MEDS ORDERED: SODIUM CHLORIDE 0.9% FLUSH 5 ML FLUSH IV FLUSH PRN (17:45)
[2016-12-07] MEDS ORDERED: LORazepam 1 MG TAB PO PRN (17:45)
[2016-12-07] MEDS: MULTIVITAMIN TAB PO SCH (18:28)
[2016-12-07] MEDS: THIAMINE HCL 100 MG TAB PO SCH (18:28)
[2016-12-07] MEDS: DIAZEPAM 5 MG TAB PO SCH (18:28)
[2016-12-07] MEDS: PANTOPRAZOLE SOD 40 MG DELAYED RELEASE TAB PO SCH (18:28)
[2016-12-07] MEDS: FOLIC ACID 1 MG TAB PO SCH (18:28)
[2016-12-07] MEDS: RESP: ALBUTEROL 2.5 MG/IPRATROPIUM 0.5 MG NEB (SCH) NEB ×2 (19:29→23:56)
[2016-12-07] MEDS: HYDROmorphone HCL PF 1 MG/ML VIAL IV PUSH PRN (19:50)
[2016-12-07] MEDS: DOCUSATE SODIUM 100 MG CAP PO SCH (19:53)
[2016-12-07] MEDS: SODIUM CHLORIDE 0.9% FLUSH 5 ML FLUSH IV FLUSH SCH (21:00)
[2016-12-07] MEDS: cloNIDine HCL 0.1 MG TAB PO SCH (21:00)
[2016-12-07] MEDS: SODIUM CHLORIDE 0.9% FLUSH 5 ML FLUSH FLUSH SCH (21:00)
[2016-12-07] MEDS: KETOROLAC TROMETHAMINE 30 MG/ML (IVP) VIAL IV PUSH PRN (22:44)
[2016-12-07] MEDS: PRAVASTATIN SOD 80 MG TAB PO SCH (22:50)
[2016-12-07] MEDS: guaiFENesin E.R. 600 MG TAB PO SCH (22:54)
[2016-12-08] VITALS (9 sets, daily range): BP systolic 141–158; BP diastolic 72–79; PULSE 55–72; RESP 17–22; TEMP 95.9–98; O2SAT 92–98
[2016-12-08] MEDS: DIAZEPAM 5 MG TAB PO SCH ×3 (03:28→17:59)
[2016-12-08] MEDS: RESP: ALBUTEROL 2.5 MG/IPRATROPIUM 0.5 MG NEB (SCH) NEB ×5 (04:02→19:27)
[2016-12-08 06:17] LABS: AUTOMATED NEUTROPHIL # 2.2 TH/MM3 (1.8-7.7); BASOPHIL # 0.1 TH/MM3 (0-0.2); BASOPHIL % 1.4 % (0.0-2.0); EOSINOPHIL # 0.4 TH/MM3 (0-0.4); EOSINOPHIL % 8.3 % (0.0-4.0); HEMATOCRIT 36.1 % (39.0-51.0); HEMO FLAGS DIFF FINAL; LYMPH % 32.3 % (9.0-44.0); LYMPHOCYTE # 1.5 TH/MM3 (1.0-4.8); MEAN CELL VOLUME 92.5 FL (80.0-100.0); MEAN CORPUSCULAR HGB CONC 34.6 % (32.0-36.0); MONO % 11.3 % (0.0-8.0); NEUT % 46.7 % (16.0-70.0); PLATELET COUNT 218 TH/MM3 (150-450); RED CELL DISTRIBUTION WIDTH 14.6 % (11.6-17.2); WHITE BLOOD COUNT 4.8 TH/MM3 (4.0-11.0)
[2016-12-08 07:12] LABS: BICARBONATE 26.2 MEQ/L (21.0-32.0); POTASSIUM 4.1 MEQ/L (3.5-5.1)
[2016-12-08] MEDS: KETOROLAC TROMETHAMINE 30 MG/ML (IVP) VIAL IV PUSH PRN ×3 (07:42→20:52)
[2016-12-08 07:50] LABS: BLOOD, URINE NEG (NEG); COMMENT (UR) CULT NOT INDICATED; CULTURE IF INDICATED CULT NOT INDICATED; GLUCOSE,URINE NEG (NEG); KETONE, URINE NEG (NEG); MUCUS URINE FEW /lpf (OCC); NITRITE,URINE NEG (NEG); PH, URINE 5.5 (5.0-8.5); URINE COLOR YELLOW (YELLW/STRAW)
[2016-12-08] MEDS: PANTOPRAZOLE SOD 20 MG DELAYED RELEASE TAB PO SCH (09:00)
[2016-12-08] MEDS: SODIUM CHLORIDE 0.9% FLUSH 5 ML FLUSH FLUSH SCH ×2 (09:00→20:53)
[2016-12-08] MEDS: cloNIDine HCL 0.1 MG TAB PO SCH ×2 (09:00→20:52)
[2016-12-08] MEDS: SODIUM CHLORIDE 0.9% FLUSH 5 ML FLUSH IV FLUSH SCH ×2 (09:00→20:53)
[2016-12-08] MEDS: METOPROLOL TARTRATE 25 MG TAB PO SCH ×3 (09:00→20:52)
[2016-12-08] MEDS: NIFEdipine 30 MG SUSTAINED RELEASE TAB PO SCH (09:00)
--- NOTE | 2016-12-08 09:02 | HHI.PR ---
Subjective Remarks This is a pleasant 71 y/o Male with OA, PTSD, CAD, Hyperlipidemia, COPD, Hypertension who states he has Thoracic pain that started two weeks ago, without trauma, he states he went to [place] and was given muscle relaxants but not helping him, the pain is 10/10 in intensity, he woke up this morning with severe pain and decided to come to ER for evaluation, as per MRI found T6 fracture, his in the room Mrs. Victoria Vasquez, seen today by neurosurgery specialist Doctor Lj Healy with Diagnosis of T6 Vertebral Body compression fracture with back pain for the past 2 weeks along with a chronic T1 Vertebral Body Moderate compression fracture, No associated Neurologic Deficits, recommended Thoracolumbosacral Orthosis Brace for the next 3 months to allow the T6 fracture to heal, obtain Thoracic spine x rays every six months to assess fracture healing, pain management. Objective Vital Signs Date Time Temp Pulse Resp B/P Pulse Ox O2 Delivery O2 Flow Rate FiO2 12/08/16 08:12 93 Nasal Cannula 21 12/08/16 04:30 97.0 58 17 141/72 94 12/08/16 00:00 96.4 55 17 145/77 93 12/07/16 23:30 Nasal Cannula 2.00 12/07/16 23:30 Room Air 12/07/16 22:37 Nasal Cannula 2.00 12/07/16 20:45 96.0 56 16 121/79 95 12/07/16 20:30 20 12/07/16 19:42 76 21 12/07/16 19:42 74 21 141/74 95 Nasal Cannula 2 12/07/16 19:31 95 Nasal Cannula 2.00 12/07/16 17:10 70 17 138/81 95 Room Air 12/07/16 11:25 68 20 149/82 98 Room Air 12/07/16 10:37 97.7 110 24 154/109 90 Room Air I/O 12/07/16 12/07/16 12/07/16 12/08/16 12/08/16 12/08/16 07:00 15:00 23:00 07:00 15:00 23:00 Intake Total 491 ml 946 ml Output Total 200 ml Balance 491 ml 746 ml Intake Oral 240 ml IV Total 491 ml 706 ml Output Urine Total 200 ml # Bowel Movements 0 Result Diagram: 12/08/16 0540 12/08/[address] pulmonary Angiogram : No Pulmonary Embolus, CT Cervical Spine Without contrast: Prominent concave deformity at the anterior inferior aspect of the T1 vertebral body. it appears the anterior aspect of the T1 vertebral body has lost approximately half its original height This does not appear to be associated with an acute fracture and likely it is chronic There also appears to be some chronic change of the spinous process at this level. Mild Narrowing of the thecal sac at C5-6 and C6-7 CT Thoracic Spine W/O contrast: Compression deformities at the T1 and T6 vertebral bodies, The T1 compression deformity is likely chronic, There is some suggestion of fracture line seen at the superior aspect of T6. Procedures No procedures performed Other Results Laboratory Tests Test 12/08/16 12/08/16 05:40 07:30 White Blood Count 4.8 TH/MM3 Red Blood Count 3.90 MIL/MM3 Hemoglobin 12.5 GM/DL Hematocrit 36.1 % Mean Corpuscular Volume 92.5 FL Mean Corpuscular Hemoglobin 32.0 PG Mean Corpuscular Hemoglobin 34.6 % Concent Red Cell Distribution Width 14.6 % Platelet Count 218 TH/MM3 Mean Platelet Volume 7.8 FL Neutrophils (%) (Auto) 46.7 % Lymphocytes (%) (Auto) 32.3 % Monocytes (%) (Auto) 11.3 % Eosinophils (%) (Auto) 8.3 % Basophils (%) (Auto) 1.4 % Neutrophils # (Auto) 2.2 TH/MM3 Lymphocytes # (Auto) 1.5 TH/MM3 Monocytes # (Auto) 0.5 TH/MM3 Eosinophils # (Auto) 0.4 TH/MM3 Basophils # (Auto) 0.1 TH/MM3 CBC Comment DIFF FINAL Differential Comment Sodium Level 138 MEQ/L Potassium Level 4.1 MEQ/L Chloride Level 104 MEQ/L Carbon Dioxide Level 26.2 MEQ/L Anion Gap 8 MEQ/L Blood Urea Nitrogen 15 MG/DL Creatinine 0.73 MG/DL Estimat Glomerular Filtration 107 ML/MIN Rate Random Glucose 112 MG/DL Calcium Level 8.7 MG/DL Urine Color YELLOW Urine Turbidity CLEAR Urine pH 5.5 Urine Specific [place] 1.034 Urine Protein TRACE mg/dL Urine Glucose (UA) NEG mg/dL Urine Ketones NEG mg/dL Urine Occult Blood NEG Urine Nitrite NEG Urine Bilirubin NEG Urine Urobilinogen LESS THAN 2.0 MG/DL Urine Leukocyte Esterase NEG Urine RBC LESS THAN 1 /hpf Urine WBC LESS THAN 1 /hpf Urine Mucus FEW /lpf Microscopic Urinalysis Comment CULT NOT INDICATED Objective Remarks GENERAL: Awake, alert, moderate to significant distress, looks older than his age SKIN: Warm and dry.Cupping estevez on the upper back going across the back HEAD: Atraumatic. Normocephalic. EYES: Pupils equal and round. No scleral icterus. No injection or drainage. ENT: No nasal bleeding or discharge. Mucous membranes pink and moist. NECK: Trachea midline. No JVD. CARDIOVASCULAR: Regular rate and rhythm. No murmur appreciated. RESPIRATORY: No accessory muscle use. Clear to auscultation. Breath sounds equal bilaterally. GASTROINTESTINAL: Abdomen soft, non-tender, nondistended. Hepatic and splenic margins not palpable. MUSCULOSKELETAL: No obvious deformities. No clubbing. No cyanosis. No edema. Significant paraspinal spasm NEUROLOGICAL: Awake and alert. No obvious cranial nerve deficits. Motor grossly within normal limits. Normal speech. PSYCHIATRIC: Appropriate mood and affect; insight and judgment normal. Medications and IVs Current Medications Medications (Trade) Dose Ordered Sig/Amber Route Start Time Stop Time Status Last Admin (Catapres) 0.1 mg BID PO 12/07/16 21:00 (Lopressor) 25 mg BID PO 12/07/16 21:00 (Procardia Xl) 30 mg DAILY PO 12/08/16 09:00 (Protonix) 20 mg DAILY PO 12/08/16 09:00 Pravastatin Sodium 80 mg 80 mg HS PO 12/07/16 21:00 12/07/16 22:50 (NS 1000 ml Inj) 1,000 ml @ 100 mls/hr Q10H IV 12/07/16 15:06 12/07/16 22:57 (NS Flush) 2 ml UNSCH PRN FLUSH 12/07/16 15:15 (NS Flush) 2 ml BID FLUSH 12/07/16 21:00 (Tylenol) 650 mg Q4H PRN PO 12/07/16 15:15 (Zofran Inj) 4 mg Q6H PRN IVP 12/07/16 15:15 (Reglan Inj) 5 mg Q6H PRN IV PUSH 12/07/16 15:15 (Dulcolax Supp) 10 mg DAILY PRN [place] 12/07/16 15:15 (Colace) 100 mg Q12H PO 12/07/16 20:00 12/07/16 19:53 (Heparin Inj) 5,000 units Q8H SQ 12/07/16 16:00 12/07/16 22:56 (Narcan Inj) 0.4 mg UNSCH PRN IV 12/07/16 15:15 (Dilaudid Pf Inj) 1 mg Q4H PRN IV PUSH 12/07/16 17:30 12/07/16 19:50 (Valium) 5 mg Q8H PO 12/07/16 18:00 12/08/16 03:28 (Toradol Inj) 15 mg Q6H PRN IV PUSH 12/07/16 17:30 12/08/16 07:42 (Mucinex Er) 600 mg BID PO 12/07/16 21:00 12/07/16 22:54 (Vitamin B1) 100 mg DAILY PO 12/07/16 17:45 12/07/16 18:28 (Folate) 1 mg DAILY PO 12/07/16 17:45 12/07/16 18:28 (Theragran) 1 tab DAILY PO 12/07/16 17:45 12/07/16 18:28 (NS Flush) 2 ml UNSCH PRN IV FLUSH 12/07/16 17:45 (NS Flush) 2 ml BID IV FLUSH 12/07/16 21:00 (Protonix) 40 mg DAILY PO 12/07/16 17:45 12/07/16 18:28 (Ativan) 1 mg Q4H PRN PO 12/07/16 17:45 A/P Assessment and Plan 1. Intractable upper Thoracic spine pain, found suspected T6 Compression Fracture, will continue Muscle relaxant, Pain medicine and antiinflammatory medicine. seen by Doctor Lj Healy recommended to continue TLSO Brace fo the next 3 months to allow T6 fracture to heal, No Associated Neurologic Deficits, Pain management and follow as outpatient. Thoracic X ray every six weeks. 3. PTSD by history continue Home medicines 4. CAD by history 5. Hyperlipidemia continue Statins 6. COPD stable non exacerbated on Bronchodilator, Mucolytic and Incentive spirometry 7. Hypertension controlled. 8. tobacco dependence strongly recommended to stop smoking. 9. Alcohol dependence started on Thiamin, Folic Acid and multivitamin, CIWA protocol No signs of withdrawal. 10. Severe PAD status post Bilateral Fem Pop DVT prophylaxis with Heparin Code Status Full Code. Discharge Planning Discharge in am tomorrow if stable for discharge. Home with [facility] for PT. Dagoberto Luna MD Dec 08, 2016 09:02 (NS Flush) 2 ml BID IV FLUSH 12/07/16 21:00 (Protonix) 40 mg DAILY PO 12/07/16 17:45 12/07/16 18:28 (Ativan) 1 mg Q4H PRN PO 12/07/16 17:45 A/P Assessment and Plan 1. Intractable upper Thoracic spine pain, found suspected T6 Compression Fracture, will continue Muscle relaxant, Pain medicine and antiinflammatory medicine. consult Neurosurgery. 2. OA stable 3. PTSD by history continue Home medicines 4. CAD by history 5. Hyperlipidemia continue Statins 6. COPD stable non exacerbated on Bronchodilator, Mucolytic and Incentive spirometry 7. Hypertension controlled. 8. tobacco dependence strongly recommended to stop smoking. 9. Alcohol dependence started on Thiamin, Folic Acid and multivitamin, CIWA protocol DVT prophylaxis with Heparin Code Status Full Code. Dagoberto Luna MD Dec 08, 2016 09:02
[2016-12-08] MEDS: guaiFENesin E.R. 600 MG TAB PO SCH ×2 (09:34→20:52)
[2016-12-08] MEDS: HEPARIN SODIUM - SQ 10,000 UNITS/ML VIAL SQ SCH ×3 (09:34→23:56)
[2016-12-08] MEDS: FOLIC ACID 1 MG TAB PO SCH (09:34)
[2016-12-08] MEDS: THIAMINE HCL 100 MG TAB PO SCH (09:34)
[2016-12-08] MEDS: DOCUSATE SODIUM 100 MG CAP PO SCH ×2 (09:34→20:52)
[2016-12-08] MEDS: PANTOPRAZOLE SOD 40 MG DELAYED RELEASE TAB PO SCH (09:40)
[2016-12-08] MEDS: MULTIVITAMIN TAB PO SCH (09:40)
[2016-12-08] MEDS: SODIUM CHLOR 0.9% 1000 ML INJ 1,000 ML IV SCH ×2 (11:58→20:53)
--- NOTE | 2016-12-08 14:30 | MB ---
cc: ADMINISTRATION,[facility] CAMILLE ROSENBERG M.D. DATE OF CONSULTATION: 12/08/2016 REASON FOR CONSULTATION Thoracic back pain. HISTORY OF PRESENT ILLNESS A 71-year-old gentleman with a 2-week history of mid thoracic back area pain that radiates into the paraspinal aspect. There is no particular inciting event. The pain has worsened over the past week or so and therefore presented to the emergency room yesterday for evaluation. He was also tachycardic and appeared to have some hypoxia on presentation and does have a history of COPD. Workup undertaken including CT angiogram of the lung did not reveal any pulmonary embolus. CT of the cervical and thoracic spine was also obtained which reveals a chronic T1 moderate vertebral body compression fracture as well as T6 vertebral body compression fracture which is also moderate in nature but no significant spinal stenosis associated with this. He does appear to have diffuse osteopenia. The T1 fracture appears to be chronic and the T6 fracture may have some acute components to it also and the superior endplate fracture. He denies any new numbness or paresthesias in the lower extremities or incontinence. He has been ambulating. He uses a cane on a chronic basis because of old injury while he was in the [employer] and he has also had revascularization procedures in the left lower extremity. PAST MEDICAL HISTORY 1. Coronary artery disease. 2. COPD. 3. Hypertension. 4. Hyperlipidemia. 5. Osteoarthritis. 6. Peripheral vascular occlusive disease. 7. Abdominal aortic aneurysm. 8. Cholecystectomy. 9. Right shoulder surgery. 10. Bilateral fem-pop bypass. MEDICATIONS 1. Aspirin 81 mg daily. 2. Clonidine 0.1 mg b.i.d. 3. Methocarbamol 250 mg b.i.d. 4. Metoprolol 25 mg b.i.d. 5. Nifedipine 30 mg daily. 6. Omeprazole 20 mg daily. 7. Simvastatin 40 mg q.h.s. ALLERGIES TRAZODONE. SOCIAL HISTORY He smokes a pack of cigarettes a day and admits to drinking 12 beers a day. LABORATORY FINDINGS White blood cell count 4.8, hemoglobin 12.5, platelet count 218, sodium 138, potassium 4.1, BUN 15, creatinine 0.73, glucose 112. PHYSICAL EXAMINATION VITAL SIGNS: Temperature 95.1, pulse is 62, respiratory rate 22, blood pressure 158/79, oxygen saturations 93% on room air. HEAD: Normocephalic, atraumatic. NECK: Neck is supple. CHEST: Clear bilaterally. HEART: Regular rate and rhythm, normal S1, S2. ABDOMEN: Soft, nontender. EXTREMITIES: No cyanosis, edema or deformity. NEUROLOGIC: He is awake, alert. He is oriented x3. Pupils are equal, reactive. Extraocular muscles intact. Face is symmetric. He moves all four extremities, 5/5 strength. Negative Babinski. Appreciates light touch sensation bilaterally and some chronic numbness in the left leg diffusely since his injury and is ambulating and voiding independently with a TLSO brace on. He does have some tenderness along the mid thoracic aspect. IMPRESSION 1. Moderate T6 vertebral body compression fracture with back pain for the past 2 weeks along with a chronic T1 vertebral body moderate compression fracture. No associated neurologic deficits. He does appear to have diffuse osteopenia and this is likely osteoporotic fracture as there is no history of any trauma or fall. 2. Significant medical comorbidities as mentioned in the history of present illness. PLAN Recommend TLSO brace when out of bed for the next 3 months to allow the T6 fracture to heal. We will obtain thoracic spine x-rays every 6 weeks to assess the fracture healing. Out of bed with a TLSO brace on at all times and he can take this off when he is laying down in bed. Recommend physical therapy and pain management. He can follow up either with myself or referred to another spine surgeon through the [facility] where he gets his care. MD PATRICA Gudino/TED /12:18 PM /1:15 PM
[2016-12-08] MEDS: PRAVASTATIN SOD 80 MG TAB PO SCH (20:52)
[2016-12-08] MEDS: HYDROmorphone HCL PF 1 MG/ML VIAL IV PUSH PRN (23:56)
[2016-12-09] VITALS (9 sets, daily range): BP systolic 142–154; BP diastolic 73–88; PULSE 62–71; RESP 17–20; TEMP 95.7–96.5; O2SAT 93–98
[2016-12-09] MEDS: RESP: ALBUTEROL 2.5 MG/IPRATROPIUM 0.5 MG NEB (SCH) NEB ×6 (00:41→19:40)
[2016-12-09] MEDS: DIAZEPAM 5 MG TAB PO SCH ×3 (01:23→16:50)
[2016-12-09] MEDS: KETOROLAC TROMETHAMINE 30 MG/ML (IVP) VIAL IV PUSH PRN ×3 (05:34→16:50)
[2016-12-09] MEDS: SODIUM CHLOR 0.9% 1000 ML INJ 1,000 ML IV SCH ×2 (07:06→14:37)
[2016-12-09] MEDS: SODIUM CHLORIDE 0.9% FLUSH 5 ML FLUSH FLUSH SCH ×2 (09:00→21:08)
[2016-12-09] MEDS: SODIUM CHLORIDE 0.9% FLUSH 5 ML FLUSH IV FLUSH SCH ×2 (09:00→21:00)
[2016-12-09] MEDS: PANTOPRAZOLE SOD 40 MG DELAYED RELEASE TAB PO SCH (10:56)
[2016-12-09] MEDS: HEPARIN SODIUM - SQ 10,000 UNITS/ML VIAL SQ SCH ×3 (10:56→23:57)
[2016-12-09] MEDS: MULTIVITAMIN TAB PO SCH (10:57)
[2016-12-09] MEDS: guaiFENesin E.R. 600 MG TAB PO SCH ×2 (10:57→21:08)
[2016-12-09] MEDS: cloNIDine HCL 0.1 MG TAB PO SCH ×2 (10:57→21:09)
[2016-12-09] MEDS: NIFEdipine 30 MG SUSTAINED RELEASE TAB PO SCH (10:57)
[2016-12-09] MEDS: THIAMINE HCL 100 MG TAB PO SCH (10:57)
[2016-12-09] MEDS: METOPROLOL TARTRATE 25 MG TAB PO SCH ×2 (10:57→21:09)
[2016-12-09] MEDS: FOLIC ACID 1 MG TAB PO SCH (10:57)
[2016-12-09] MEDS: DOCUSATE SODIUM 100 MG CAP PO SCH ×2 (10:57→20:00)
[2016-12-09] MEDS: PANTOPRAZOLE SOD 20 MG DELAYED RELEASE TAB PO SCH (10:57)
--- NOTE | 2016-12-09 16:59 | HHI.PR ---
Subjective Remarks The pt feels better and would like to go home in the morning. Pain is controlled. Ambulating well. Nursing at the bedside. Objective Vitals Vital Signs Date Time Temp Pulse Resp B/P Pulse Ox O2 Delivery O2 Flow Rate FiO2 12/09/16 16:00 96.5 64 18 154/85 98 12/09/16 12:00 96.2 65 18 150/73 96 12/09/16 08:04 98 Nasal Cannula 21 12/09/16 08:00 96.3 62 17 142/76 96 12/09/16 04:15 95.7 68 20 143/88 95 12/09/16 03:16 94 21 12/09/16 00:43 93 21 12/08/16 23:45 97.4 72 19 146/74 94 12/08/16 20:15 97.3 68 19 143/74 94 12/08/16 19:28 92 21 I/O 12/08/16 12/08/16 12/08/16 12/09/16 12/09/16 12/09/16 07:00 15:00 23:00 07:00 15:00 23:00 Intake Total 946 ml 1962 ml 1308 ml 1102 ml 623 ml 480 ml Output Total 200 ml 1800 ml Balance 746 ml 162 ml 1308 ml 1102 ml 623 ml 480 ml Intake Oral 240 ml 1450 ml 480 ml 240 ml 480 ml IV Total 706 ml 512 ml 828 ml 862 ml 623 ml Output Urine Total 200 ml 1800 ml # Voids 3 2 1 2 # Bowel Movements 0 0 0 1 Result Diagram: 12/08/16 0540 12/08/16 0540 Imaging Last Impressions Thoracic Spine CT 12/07/16 0000 Signed Impressions: Service Date/Time: Wednesday, December 07, 2016 12:55 - CONCLUSION: 1. Compression deformities at the T1 and T6 vertebral bodies. The T1 compression deformity is likely chronic. There is some suggestion of fracture line seen at the superior aspect of T6 suggest this may be a more recent compression deformity. Prior studies are unavailable. Significant narrowing of the thecal sac is not seen. Rubin Spears MD Cervical Spine CT 12/07/16 0000 Signed Impressions: Service Date/Time: Wednesday, December 07, 2016 12:51 - CONCLUSION: 1. Prominent concave deformity at the anterior inferior aspect of the T1 vertebral body. It appears the anterior aspect of the T1 vertebral body has lost approximately half its original height. This does not appear to be associated with an acute fracture and likely it is chronic. There also appears to be some chronic change of the spinous process at this level. 2. Degenerative change at the C5-6 and C6-7 levels causing at least mild narrowing of the thecal sac at these levels. Rubin Spears MD CT Angiography 12/07/16 0000 Signed Impressions: Service Date/Time: Wednesday, December 07, 2016 12:55 - CONCLUSION: No pulmonary embolus. Rubin Spears MD Objective Remarks GENERAL: Awake, alert, NAD. SKIN: Warm and dry. HEAD: Atraumatic. Normocephalic. EYES: Pupils equal and round. No scleral icterus. No injection or drainage. ENT: No nasal bleeding or discharge. Mucous membranes pink and moist. NECK: Trachea midline. No JVD. CARDIOVASCULAR: Regular rate and rhythm. No murmur appreciated. RESPIRATORY: No accessory muscle use. Clear to auscultation. Breath sounds equal bilaterally. GASTROINTESTINAL: Abdomen soft, non-tender, nondistended. Hepatic and splenic margins not palpable. MUSCULOSKELETAL: No obvious deformities. No clubbing. No cyanosis. No edema. In brace. NEUROLOGICAL: No obvious cranial nerve deficits. Motor grossly within normal limits. Normal speech. PSYCHIATRIC: Appropriate mood and affect; insight and judgment normal. Medications and IVs Current Medications Medications (Trade) Dose Ordered Sig/Amber Route Start Time Stop Time Status Last Admin (Catapres) 0.1 mg BID PO 12/07/16 21:00 12/09/16 10:57 (Lopressor) 25 mg BID PO 12/07/16 21:00 12/09/16 10:57 (Procardia Xl) 30 mg DAILY PO 12/08/16 09:00 12/09/16 10:57 (Protonix) 20 mg DAILY PO 12/08/16 09:00 12/09/16 10:57 Pravastatin Sodium 80 mg 80 mg HS PO 12/07/16 21:00 12/08/16 20:52 (NS 1000 ml Inj) 1,000 ml @ 100 mls/hr Q10H IV 12/07/16 15:06 12/09/16 14:37 (NS Flush) 2 ml UNSCH PRN FLUSH 12/07/16 15:15 (NS Flush) 2 ml BID FLUSH 12/07/16 21:00 12/08/16 20:53 (Tylenol) 650 mg Q4H PRN PO 12/07/16 15:15 (Zofran Inj) 4 mg Q6H PRN IVP 12/07/16 15:15 (Reglan Inj) 5 mg Q6H PRN IV PUSH 12/07/16 15:15 (Dulcolax Supp) 10 mg DAILY PRN [place] 12/07/16 15:15 (Colace) 100 mg Q12H PO 12/07/16 20:00 12/09/16 10:57 (Heparin Inj) 5,000 units Q8H SQ 12/07/16 16:00 12/09/16 16:50 (Narcan Inj) 0.4 mg UNSCH PRN IV 12/07/16 15:15 (Dilaudid Pf Inj) 1 mg Q4H PRN IV PUSH 12/07/16 17:30 12/08/16 23:56 (Valium) 5 mg Q8H PO 12/07/16 18:00 12/09/16 16:50 (Toradol Inj) 15 mg Q6H PRN IV PUSH 12/07/16 17:30 12/09/16 16:50 (Mucinex Er) 600 mg BID PO 12/07/16 21:00 12/09/16 10:57 (Vitamin B1) 100 mg DAILY PO 12/07/16 17:45 12/09/16 10:57 (Folate) 1 mg DAILY PO 12/07/16 17:45 12/09/16 10:57 (Theragran) 1 tab DAILY PO 12/07/16 17:45 12/09/16 10:57 (NS Flush) 2 ml UNSCH PRN IV FLUSH 12/07/16 17:45 (NS Flush) 2 ml BID IV FLUSH 12/07/16 21:00 (Protonix) 40 mg DAILY PO 12/07/16 17:45 12/09/16 10:56 (Ativan) 1 mg Q4H PRN PO 12/07/16 17:45 A/P Assessment and Plan 1. Intractable upper Thoracic spine pain, found suspected T6 Compression Fracture, will continue Muscle relaxant, Pain medicine and antiinflammatory medicine. seen by Doctor Lj Healy recommended to continue TLSO Brace fo the next 3 months to allow T6 fracture to heal, No Associated Neurologic Deficits, Pain management and follow as outpatient. Thoracic X ray every six weeks. D[facility]c [facility] with [facility]. 3. PTSD by history continue Home medicines 4. CAD by history 5. Hyperlipidemia continue Statins 6. COPD stable non exacerbated on Bronchodilator, Mucolytic and Incentive spirometry 7. Hypertension controlled. 8. tobacco dependence strongly recommended to stop smoking. 9. Alcohol dependence started on Thiamin, Folic Acid and multivitamin, CIWA protocol No signs of withdrawal. Cessation instruction given. 10. Severe PAD status post Bilateral Fem Pop DVT prophylaxis with Heparin Discharge Planning D/c home in AM. Milo Hall DO Dec 09, 2016 16:59
[2016-12-09] MEDS: PRAVASTATIN SOD 80 MG TAB PO SCH (21:09)
[2016-12-09] MEDS: HYDROmorphone HCL PF 1 MG/ML VIAL IV PUSH PRN (22:23)
[2016-12-10] VITALS (8 sets, daily range): BP systolic 122–158; BP diastolic 70–84; PULSE 60–68; RESP 16–21; TEMP 96–97.1; O2SAT 93–96
[2016-12-10] MEDS: RESP: ALBUTEROL 2.5 MG/IPRATROPIUM 0.5 MG NEB (SCH) NEB ×6 (00:03→19:21)
[2016-12-10] MEDS: DIAZEPAM 5 MG TAB PO SCH ×3 (01:22→17:22)
[2016-12-10] MEDS: KETOROLAC TROMETHAMINE 30 MG/ML (IVP) VIAL IV PUSH PRN (01:22)
[2016-12-10] MEDS: SODIUM CHLOR 0.9% 1000 ML INJ 1,000 ML IV SCH (01:23)
[2016-12-10] MEDS: HYDROmorphone HCL PF 1 MG/ML VIAL IV PUSH PRN ×3 (06:58→17:23)
[2016-12-10] MEDS: FOLIC ACID 1 MG TAB PO SCH (08:50)
[2016-12-10] MEDS: THIAMINE HCL 100 MG TAB PO SCH (08:50)
[2016-12-10] MEDS: PANTOPRAZOLE SOD 20 MG DELAYED RELEASE TAB PO SCH (08:50)
[2016-12-10] MEDS: DOCUSATE SODIUM 100 MG CAP PO SCH ×2 (08:50→20:44)
[2016-12-10] MEDS: METOPROLOL TARTRATE 25 MG TAB PO SCH ×2 (08:50→20:45)
[2016-12-10] MEDS: PANTOPRAZOLE SOD 40 MG DELAYED RELEASE TAB PO SCH (08:51)
[2016-12-10] MEDS: HEPARIN SODIUM - SQ 10,000 UNITS/ML VIAL SQ SCH ×2 (08:51→23:59)
[2016-12-10] MEDS: MULTIVITAMIN TAB PO SCH (08:51)
[2016-12-10] MEDS: NIFEdipine 30 MG SUSTAINED RELEASE TAB PO SCH (08:51)
[2016-12-10] MEDS: cloNIDine HCL 0.1 MG TAB PO SCH ×2 (08:51→20:45)
[2016-12-10] MEDS: guaiFENesin E.R. 600 MG TAB PO SCH ×2 (08:51→20:45)
--- NOTE | 2016-12-10 08:59 | HHI.PR ---
Subjective Remarks The patient endorses significant pain. He said he couldn't tolerate the back brace so he took it off. He does not believe he can go home and this kind of pain. He said he was feeling better yesterday. He has been eating okay. Has been having normal bowel movements. Discussed with nursing. Objective Vitals Vital Signs Date Time Temp Pulse Resp B/P Pulse Ox O2 Delivery O2 Flow Rate FiO2 12/10/16 08:00 96.2 63 16 132/77 93 12/10/16 07:29 94 21 12/10/16 03:25 95 Nasal Cannula 21 12/10/16 00:05 93 21 12/10/16 00:05 96.3 66 21 122/70 93 12/09/16 20:10 96.1 71 19 154/74 96 12/09/16 19:32 95 21 12/09/16 16:00 96.5 64 18 154/85 98 12/09/16 12:00 96.2 65 18 150/73 96 I/O 12/09/16 12/09/16 12/09/16 12/10/16 12/10/16 12/10/16 07:00 15:00 23:00 07:00 15:00 23:00 Intake Total 1102 ml 623 ml 960 ml 240 ml Balance 1102 ml 623 ml 960 ml 240 ml Intake Oral 240 ml 960 ml 240 ml IV Total 862 ml 623 ml # Voids 1 4 1 # Bowel Movements 0 1 0 Result Diagram: 12/08/16 0540 12/08/16 0540 Imaging Last Impressions Thoracic Spine CT 12/07/16 0000 Signed Impressions: Service Date/Time: Wednesday, December 07, 2016 12:55 - CONCLUSION: 1. Compression deformities at the T1 and T6 vertebral bodies. The T1 compression deformity is likely chronic. There is some suggestion of fracture line seen at the superior aspect of T6 suggest this may be a more recent compression deformity. Prior studies are unavailable. Significant narrowing of the thecal sac is not seen. Rubin Spears MD Cervical Spine CT 12/07/16 0000 Signed Impressions: Service Date/Time: Wednesday, December 07, 2016 12:51 - CONCLUSION: 1. Prominent concave deformity at the anterior inferior aspect of the T1 vertebral body. It appears the anterior aspect of the T1 vertebral body has lost approximately half its original height. This does not appear to be associated with an acute fracture and likely it is chronic. There also appears to be some chronic change of the spinous process at this level. 2. Degenerative change at the C5-6 and C6-7 levels causing at least mild narrowing of the thecal sac at these levels. Rubin Spears MD CT Angiography 12/07/16 0000 Signed Impressions: Service Date/Time: Wednesday, December 07, 2016 12:55 - CONCLUSION: No pulmonary embolus. Rubin Spears MD Objective Remarks GENERAL: Awake, alert, uncomfortable. SKIN: Warm and dry. HEAD: Atraumatic. Normocephalic. EYES: Pupils equal and round. No scleral icterus. No injection or drainage. ENT: No nasal bleeding or discharge. Mucous membranes pink and moist. NECK: Trachea midline. No JVD. CARDIOVASCULAR: Regular rate and rhythm. No murmur appreciated. RESPIRATORY: No accessory muscle use. Clear to auscultation. Breath sounds equal bilaterally. GASTROINTESTINAL: Abdomen soft, non-tender, nondistended. Hepatic and splenic margins not palpable. MUSCULOSKELETAL: No obvious deformities. No clubbing. No cyanosis. No edema. In brace. NEUROLOGICAL: No obvious cranial nerve deficits. Motor grossly within normal limits. Normal speech. PSYCHIATRIC: Appropriate mood and affect; insight and judgment normal. Medications and IVs Current Medications Medications (Trade) Dose Ordered Sig/Amber Route Start Time Stop Time Status Last Admin (Catapres) 0.1 mg BID PO 12/07/16 21:00 12/10/16 08:51 (Lopressor) 25 mg BID PO 12/07/16 21:00 12/10/16 08:50 (Procardia Xl) 30 mg DAILY PO 12/08/16 09:00 12/10/16 08:51 (Protonix) 20 mg DAILY PO 12/08/16 09:00 12/10/16 08:50 (Pravachol) 80 mg HS PO 12/07/16 21:00 12/09/16 21:09 (NS Flush) 2 ml UNSCH PRN FLUSH 12/07/16 15:15 (NS Flush) 2 ml BID FLUSH 12/07/16 21:00 12/09/16 21:08 (Tylenol) 650 mg Q4H PRN PO 12/07/16 15:15 (Zofran Inj) 4 mg Q6H PRN IVP 12/07/16 15:15 (Reglan Inj) 5 mg Q6H PRN IV PUSH 12/07/16 15:15 (Dulcolax Supp) 10 mg DAILY PRN [place] 12/07/16 15:15 (Colace) 100 mg Q12H PO 12/07/16 20:00 12/10/16 08:50 (Heparin Inj) 5,000 units Q8H SQ 12/07/16 16:00 12/10/16 08:51 (Narcan Inj) 0.4 mg UNSCH PRN IV 12/07/16 15:15 (Dilaudid Pf Inj) 1 mg Q4H PRN IV PUSH 12/07/16 17:30 12/10/16 06:58 (Valium) 5 mg Q8H PO 12/07/16 18:00 12/10/16 08:50 (Toradol Inj) 15 mg Q6H PRN IV PUSH 12/07/16 17:30 12/10/16 13:30 12/10/16 01:22 (Mucinex Er) 600 mg BID PO 12/07/16 21:00 12/10/16 08:51 (Vitamin B1) 100 mg DAILY PO 12/07/16 17:45 12/10/16 08:50 (Folate) 1 mg DAILY PO 12/07/16 17:45 12/10/16 08:50 (Theragran) 1 tab DAILY PO 12/07/16 17:45 12/10/16 08:51 (NS Flush) 2 ml UNSCH PRN IV FLUSH 12/07/16 17:45 (NS Flush) 2 ml BID IV FLUSH 12/07/16 21:00 (Protonix) 40 mg DAILY PO 12/07/16 17:45 12/10/16 08:51 (Ativan) 1 mg Q4H PRN PO 12/07/16 17:45 A/P Assessment and Plan 1. Intractable upper Thoracic spine pain, found suspected T6 Compression Fracture, will continue Muscle relaxant, Pain medicine and antiinflammatory medicine. seen by Doctor Lj Healy recommended to continue TLSO Brace fo the next 3 months to allow T6 fracture to heal, No Associated Neurologic Deficits, Pain management and follow as outpatient. Thoracic X ray every six weeks. Will add standing Toradol and oxycodone 12/10. D[facility] with [facility] if pain better controlled. 3. PTSD by history continue Home medicines 4. CAD by history 5. Hyperlipidemia continue Statins 6. COPD stable non exacerbated on Bronchodilator, Mucolytic and Incentive spirometry 7. Hypertension likely exacerbated by pain. Continue pain control. 8. tobacco dependence strongly recommended to stop smoking. 9. Alcohol dependence started on Thiamin, Folic Acid and multivitamin, CIWA protocol No signs of withdrawal. Cessation instruction given. 10. Severe PAD status post Bilateral Fem Pop DVT prophylaxis with Heparin Discharge Planning D/c home in AM if pain better controlled. Milo Hall DO Dec 10, 2016 08:58
[2016-12-10] MEDS: SODIUM CHLORIDE 0.9% FLUSH 5 ML FLUSH FLUSH SCH ×2 (09:00→20:49)
[2016-12-10] MEDS: SODIUM CHLORIDE 0.9% FLUSH 5 ML FLUSH IV FLUSH SCH ×2 (09:00→20:48)
[2016-12-10] MEDS: KETOROLAC TROMETHAMINE 30 MG/ML (IVP) VIAL IV PUSH SCH ×3 (11:00→23:59)
[2016-12-10] MEDS: PRAVASTATIN SOD 80 MG TAB PO SCH (20:45)
[2016-12-11] VITALS: BP 159/89; PULSE 71; RESP 18; TEMP 96.2; O2SAT 93
[2016-12-11] MEDS: RESP: ALBUTEROL 2.5 MG/IPRATROPIUM 0.5 MG NEB (SCH) NEB ×3 (00:44→08:12)
[2016-12-11] MEDS: DIAZEPAM 5 MG TAB PO SCH ×2 (02:59→09:57)
[2016-12-11 05:21] VITALS: O2SAT 88
[2016-12-11] MEDS: KETOROLAC TROMETHAMINE 30 MG/ML (IVP) VIAL IV PUSH SCH (05:24)
[2016-12-11 08:00] VITALS: BP 120/70; PULSE 97; RESP 18; TEMP 97.6; O2SAT 98
[2016-12-11] MEDS: HEPARIN SODIUM - SQ 10,000 UNITS/ML VIAL SQ SCH (08:58)
[2016-12-11] MEDS: PANTOPRAZOLE SOD 20 MG DELAYED RELEASE TAB PO SCH (08:58)
[2016-12-11] MEDS: NIFEdipine 30 MG SUSTAINED RELEASE TAB PO SCH (08:59)
[2016-12-11] MEDS: cloNIDine HCL 0.1 MG TAB PO SCH (08:59)
[2016-12-11] MEDS: FOLIC ACID 1 MG TAB PO SCH (08:59)
[2016-12-11] MEDS: MULTIVITAMIN TAB PO SCH (08:59)
[2016-12-11] MEDS: METOPROLOL TARTRATE 25 MG TAB PO SCH (08:59)
[2016-12-11] MEDS: THIAMINE HCL 100 MG TAB PO SCH (08:59)
[2016-12-11] MEDS: PANTOPRAZOLE SOD 40 MG DELAYED RELEASE TAB PO SCH (08:59)
[2016-12-11] MEDS: DOCUSATE SODIUM 100 MG CAP PO SCH (08:59)
[2016-12-11] MEDS: guaiFENesin E.R. 600 MG TAB PO SCH (08:59)
[2016-12-11] MEDS: SODIUM CHLORIDE 0.9% FLUSH 5 ML FLUSH IV FLUSH SCH (09:00)
[2016-12-11] MEDS: SODIUM CHLORIDE 0.9% FLUSH 5 ML FLUSH FLUSH SCH (09:08)
[2016-12-11] MEDS ORDERED: DIAZ5 PO (09:45)
[2016-12-11] MEDS ORDERED: OXYC-392 PO (09:45)
--- NOTE | 2016-12-11 09:48 | HHI.FF ---
Face to Face Verification Diagnosis: (1) Alcohol abuse (2) Intractable back pain (3) Thoracic compression fracture (4) Tobacco abuse Physical Therapy Order: Evaluate and Treat, Improve ambulation, Strength and gait training Home Health Nursing Order: Medical education Signs/symptoms of disease process Medication education-adverse effect Nursing assessment with vital signs I have seen patient Miky Vasquez on 12/11/16. My clinical findings support the need for the requested home health care services because: Ltd mobility - disease progression Deconditioned w/ increased weakness Limited ability to care for self I certify that my clinical findings support that this patient is homebound because: Unsteady gait/balance Unsafe to leave home unassisted Milo Hall DO Dec 11, 2016 09:48
--- NOTE | 2016-12-11 09:48 | HHI.DCPOC ---
Discharge Care Plan Diagnosis: (1) Intractable back pain (2) Thoracic compression fracture (3) Tobacco abuse (4) Alcohol abuse Goals to Promote Your Health * To prevent worsening of your condition and complications * To maintain your health at the optimal level Directions to Meet Your Goals Take your medications as prescribed Follow your dietary instruction Follow activity as directed Keep your appointments as scheduled Take your immunizations and boosters as scheduled If your symptoms worsen call your PCP, if no PCP go to Urgent Care Center or Emergency Room Smoking is Dangerous to Your Health. Avoid second hand smoke Call the 24-hour hour crisis hotline for domestic abuse at Milo Hall DO Dec 11, 2016 09:47
--- NOTE | 2016-12-11 10:00 | HHI.DS ---
Discharge Summary Admission Date Dec 07, 2016 at 15:05 Discharge Date: Dec 11, 2016 Admitting Diagnosis thoracic compression fracture, intractable pain (1) Intractable back pain ICD Code: M54.9 Diagnosis: Principal (2) Alcohol abuse ICD Code: F10.10 (3) Thoracic compression fracture ICD Code: S22.000A Diagnosis: Principal (4) Tobacco abuse ICD Code: Z72.0 Procedures None. Brief History - From Admission This is a pleasant 71 y/o Male with OA, PTSD, CAD, Hyperlipidemia, COPD, Hypertension who states he has Thoracic pain that started two weeks ago, without trauma, he states he went to [place] and was given muscle relaxants but not helping him, the pain is 10/10 in intensity, he woke up this morning with severe pain and decided to come to ER for evaluation, sent for MRI and was found probable T6 fracture asked for Neurosurgical consult given , pain Medicine, Muscle relaxants and antiinflammatory medicine. no tingling sensation or decreased sensation. His in the room Mrs. Victoria Vasquez. CBC/BMP: 12/08/16 0540 12/08/16 0540 Imaging Last Impressions Thoracic Spine CT 12/07/16 0000 Signed Impressions: Service Date/Time: Wednesday, December 07, 2016 12:55 - CONCLUSION: 1. Compression deformities at the T1 and T6 vertebral bodies. The T1 compression deformity is likely chronic. There is some suggestion of fracture line seen at the superior aspect of T6 suggest this may be a more recent compression deformity. Prior studies are unavailable. Significant narrowing of the thecal sac is not seen. Rubin Spears MD Cervical Spine CT 12/07/16 0000 Signed Impressions: Service Date/Time: Wednesday, December 07, 2016 12:51 - CONCLUSION: 1. Prominent concave deformity at the anterior inferior aspect of the T1 vertebral body. It appears the anterior aspect of the T1 vertebral body has lost approximately half its original height. This does not appear to be associated with an acute fracture and likely it is chronic. There also appears to be some chronic change of the spinous process at this level. 2. Degenerative change at the C5-6 and C6-7 levels causing at least mild narrowing of the thecal sac at these levels. Rubin Spears MD CT Angiography 12/07/16 0000 Signed Impressions: Service Date/Time: Wednesday, December 07, 2016 12:55 - CONCLUSION: No pulmonary embolus. Rubin Spears MD PE at Discharge GENERAL: Awake, alert,NAD. SKIN: Warm and dry. HEAD: Atraumatic. Normocephalic. EYES: Pupils equal and round. No scleral icterus. No injection or drainage. ENT: No nasal bleeding or discharge. Mucous membranes pink and moist. NECK: Trachea midline. No JVD. CARDIOVASCULAR: Regular rate and rhythm. No murmur appreciated. RESPIRATORY: No accessory muscle use. Clear to auscultation. Breath sounds equal bilaterally. GASTROINTESTINAL: Abdomen soft, non-tender, nondistended. Hepatic and splenic margins not palpable. MUSCULOSKELETAL: No obvious deformities. No clubbing. No cyanosis. No edema. In brace. NEUROLOGICAL: No obvious cranial nerve deficits. Motor grossly within normal limits. Normal speech. PSYCHIATRIC: Appropriate mood and affect; insight and judgment normal. Pt update on day of discharge The patient said his pain was well controlled this morning. He was looking forward to going home with home health care. He had no acute complaints. Discussed with nursing. Hospital Course Intractable upper thoracic spine pain/ T6 compression fracture Imaging showed: Deformities at the T1 and T6 vertebral bodies; The T1 compression deformity is likely chronic; There is some suggestion of fracture line seen at the superior aspect of T6 suggest this may be a more recent compression deformity. CT showed: Prominent concave deformity at the anterior inferior aspect of the T1 vertebral body; It appears the anterior aspect of the T1 vertebral body has lost approximately half its original height; This does not appear to be associated with an acute fracture and likely it is chronic; There also appears to be some chronic change of the spinous process at this level; Degenerative change at the C5-6 and C6-7 levels causing at least mild narrowing of the thecal sac at these levels. Neurosurgery was consulted and a TLSO brace was ordered. He worked with physical therapy. He will follow up with [facility] and his PCP as an outpt. He received muscle relaxants, pain meds and antiinflammatory meds as needed. Per NS it is recommended to continue TLSO Brace fo the next 3 months to allow T6 fracture to heal. He will need thoracic X rays every six weeks. He will be discharged with home health care. Alcohol dependence Started on thiamine, folic acid and multivitamin, CIWA protocol. No signs of withdrawal. Cessation instruction given. Nicotine abuse The pt said he is cutting down. Cessation instruction given. Pt Condition on Discharge: Good Discharge Disposition: Disch w/ Home Health Serv Discharge Time: > 30 minutes Discharge Instructions DIET: Follow Instructions for: As Tolerated, No Restrictions Activities you can perform: Weight Bearing as Bill Follow up Referrals: Neurosurgery - 2 Weeks with Lj Healy MD PCP Follow-up - 1 Week SN[facility] [place] [phone] New Medications: Diazepam (Valium) 5 Mg Tab 5 MG PO Q8H Anxiety and/or Insomnia #14 TAB Oxycodone (Oxycodone) 5 Mg Tab 5 MG PO Q4H PRN pain #30 TAB Continued Medications: Aspirin (Aspirin) 81 Mg Tabdr 81 MG PO DAILY Blood Clot Prevention Days 30 TAB Clonidine (Clonidine) 0.1 Mg Tab 0.1 MG PO BID Blood Pressure Management #60 Ref 0 TAB Methocarbamol (Methocarbamol) 500 Mg Tab 250 MG PO BID Muscle Spasm #0 Ref 0 TAB Metoprolol Tartrate (Metoprolol Tartrate) 25 Mg Tab 25 MG PO BID #30 Ref 0 TAB Nifedipine ER 24 HR (Nifedipine ER 24 HR) 30 Mg Tab 30 MG PO DAILY Blood Pressure Management Days 30 TAB Omeprazole (Omeprazole) 20 Mg Tab 20 MG PO DAILY #0 Ref 0 TAB Simvastatin (Simvastatin) 40 Mg Tab 40 MG PO HS Cholesterol Management Ref 0 TAB Milo Hall DO Dec 11, 2016 10:00
== END 2016-12-11 11:56 | disposition home health service (06) ==
LOC: NEPA 10:30 → NEDA 15:05 → INTOOBSV 15:05 → N06B 20:46
PROVIDERS: ADMIT Hospitalist; ATTEND Hospitalist
DX: M48.54XA Collapsed vertebra, not elsewhere classified, thoracic region, initial encounter for fracture (principal); J44.9 Chronic obstructive pulmonary disease, unspecified; I10 Essential (primary) hypertension; M19.90 Unspecified osteoarthritis, unspecified site; F41.9 Anxiety disorder, unspecified; E78.00 Pure hypercholesterolemia, unspecified; F43.10 Post-traumatic stress disorder, unspecified; I25.10 Atherosclerotic heart disease of native coronary artery without angina pectoris; E78.5 Hyperlipidemia, unspecified; F17.210 Nicotine dependence, cigarettes, uncomplicated; F10.10 Alcohol abuse, uncomplicated; Z79.82 Long term (current) use of aspirin
CPT/HCPCS: 71275; 72125; 72128; 80048; 81001; 82948; 85025; 94150; 94640; 94664; 96374; 96375; 97110; 97116; 97163; 97530; 99284; G0378; J1170; J1644; J1885; J2060; J7030; J7040; L0150; L0200; L0484; Q9967

== ENCOUNTER 2016-12-25 08:53 | Emergency (ER) | payer OTHER, MEDICARE ==
[~2016-12-25] VITALS: Ht 182.9 cm; Wt 78.0 kg
[~2016-12-25 08:53] MED LIST changes: +DIAZ5 PO; +METH500T3 PO; +OMEP20TA PO; +OXYC-392 PO; -PANT20TA2 PO
[2016-12-25 08:57] VITALS: BP 132/73; PULSE 78; RESP 20; TEMP 97.7; O2SAT 90
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
[2016-12-25 09:15] VITALS: O2SAT 96
[2016-12-25] MEDS ORDERED: ALPRAZolam 1 MG TAB PO ONE (09:15)
[2016-12-25] MEDS ORDERED: SODIUM CHLORIDE 0.9% FLUSH 10 ML FLUSH IVF PRN (09:15)
[2016-12-25 09:39] LABS: AUTOMATED NEUTROPHIL # 2.7 TH/MM3 (1.8-7.7); BASOPHIL # 0.1 TH/MM3 (0-0.2); BASOPHIL % 1.2 % (0.0-2.0); EOSINOPHIL # 0.2 TH/MM3 (0-0.4); EOSINOPHIL % 4.1 % (0.0-4.0); HEMATOCRIT 39.5 % (39.0-51.0); HEMO FLAGS DIFF FINAL; LYMPH % 22.1 % (9.0-44.0); LYMPHOCYTE # 0.9 TH/MM3 (1.0-4.8); MEAN CELL VOLUME 90.4 FL (80.0-100.0); MEAN CORPUSCULAR HEMOGLOBIN 31.8 PG (27.0-34.0); MEAN CORPUSCULAR HGB CONC 35.2 % (32.0-36.0); MONO % 7.6 % (0.0-8.0); PLATELET COUNT 287 TH/MM3 (150-450); RED BLOOD COUNT 4.37 MIL/MM3 (4.50-5.90); RED CELL DISTRIBUTION WIDTH 14.6 % (11.6-17.2); WHITE BLOOD COUNT 4.2 TH/MM3 (4.0-11.0)
[2016-12-25 09:57] LABS: APTT (PATIENT) 26.9 SEC (24.3-30.1); PROTHROMBIN TIME - PATIENT 11.4 SEC (9.8-11.6)
[2016-12-25 10:04] LABS: ANION GAP 8 MEQ/L (5-15); BICARBONATE 26.2 MEQ/L (21.0-32.0); BLOOD UREA NITROGEN 10 MG/DL (7-18); CHLORIDE 97 MEQ/L (98-107); GLOMERULAR FILTRATION RATE 93 ML/MIN (>89); MAGNESIUM 1.8 MG/DL (1.5-2.5); SODIUM (NA) 131 MEQ/L (136-145)
--- NOTE | 2016-12-25 10:11 | RADRPT ---
EXAM DATE/TIME: 12/25/2016 09:20 [facility] COMPARISON: CHEST SINGLE AP, November 01, 2016, 18:34. INDICATIONS : Patient states he had a racing heart beat this morning and felt very anxious. MEDICAL HISTORY : Cardiovascular disease. Aneurysm, abdominal. SURGICAL HISTORY : Cholecystectomy. Femoral artery bypass. ENCOUNTER: Initial ACUITY: 1 day PAIN SCORE: 0/10 LOCATION: Bilateral chest FINDINGS: 2 portable frontal views of the chest show hyperaeration the lungs. No infiltrate or effusion. Heart is normal in size. An orthopedic screw seen involving the distal clavicle. CONCLUSION: Hyperinflation suggesting COPD. No acute infiltrate or effusion. Ashok Grace Jr., MD on December 25, 2016 at 10:09 Board Certified Radiologist. This report was verified electronically.
[2016-12-25 10:16] LABS: CREATINE KINASE 92 U/L (39-308)
[2016-12-25] MEDS ORDERED: IOHEXOL 350 MG/ML 10 ML VIAL (for RAD DIAG) IV ONE (11:22)
--- NOTE | 2016-12-25 11:36 | RADRPT ---
EXAM DATE/TIME: 12/25/2016 11:16 [facility] COMPARISON: CT PULMONARY ANGIOGRAM, December 07, 2016, 12:55. INDICATIONS : Shortness of breath. IV CONTRAST: 70 cc Omnipaque 350 (iohexol) IV RADIATION DOSE: 23.29 CTDIvol (mGy) MEDICAL HISTORY : Chronic obstructive pulmonary disease. Cardiovascular disease SURGICAL HISTORY : Cholecystectomy. Right shoulder surgery. ENCOUNTER: Initial ACUITY: 1 day PAIN SCALE: 0/10 LOCATION: chest TECHNIQUE: Volumetric scanning of the chest was performed using a pulmonary embolism protocol MIP images were re constructed. Using automated exposure control and adjustment of the mA and/or kV according to patien t size, radiation dose was kept as low as reasonably achievable to obtain optimal diagnostic quality images. FINDINGS: PULMONARY ARTERIES: No filling defects are seen in the pulmonary arteries through the segmental level. LUNGS: There is no consolidation or pneumothorax . No concerning pulmonary nodule is visualized. PLEURAE: There is no pleural thickening or pleural effusion. MEDIASTINUM: There is good visualization of the great vessels of the middle mediastinum. No evidence of mediastin al or hilar adenopathy/mass. Coronary artery atherosclerotic calcifications noted. MUSCULOSKELETAL: Within normal limits for patient age. MISCELLANEOUS: The visualized upper abdominal organs demonstrate no acute abnormality. CONCLUSION: 1. No PE. 2. Coronary artery atherosclerotic calcifications. Ashok Grace Jr., MD on December 25, 2016 at 11:31 Board Certified Radiologist. This report was verified electronically.
--- NOTE | 2016-12-25 15:06 | EKG ---
Date Performed: 12/25/2016 Time Performed: 09:25:12 PTAGE: 71 years EKG: Sinus rhythm When compared to previous tracing, sinus rhythm has replaced Atrial fibrillation. NORMAL ECG PREVIOUS TRACING : 11/10/2016 13.49 DOCTOR: Sushant Albert Interpretating Date/Time 12/25/2016 15:04:27
== END 2016-12-25 12:28 | disposition home or self-care (01) ==
LOC: NEPA 08:53
DX: E87.1 Hypo-osmolality and hyponatremia (principal); F41.9 Anxiety disorder, unspecified; F10.10 Alcohol abuse, uncomplicated; R79.1 Abnormal coagulation profile; E78.00 Pure hypercholesterolemia, unspecified; F17.200 Nicotine dependence, unspecified, uncomplicated; Z87.39 Personal history of other diseases of the musculoskeletal system and connective tissue; Z86.79 Personal history of other diseases of the circulatory system; Z86.59 Personal history of other mental and behavioral disorders; Z87.09 Personal history of other diseases of the respiratory system; Z87.19 Personal history of other diseases of the digestive system; Z87.438 Personal history of other diseases of male genital organs; Z86.69 Personal history of other diseases of the nervous system and sense organs
CPT/HCPCS: 71010; 71275; 80048; 82550; 83735; 84484; 85025; 85379; 85610; 85730; 93005; 99285; Q9967

== ENCOUNTER 2018-08-06 14:25 | Observation (INO) ==
[2018-08-06] MEDS ORDERED: Pantoprazole Inj 40 MG Vial IV.PUSH ONE (19:33)
--- NOTE | 2018-08-06 19:36 | ED ---
HPI General Chief complaint: GI Bleed Stated complaint: Poss Abnormal Blood Work/[facility] Sent Time Seen by Provider: 08/06/18 19:25 History of Present Illness HPI narrative: This is a 73-year-old male with history of atrial fibrillation, recent cardiac stent 2-3 weeks ago at the [facility], was sent by the [facility] today for evaluation of GI bleeding. He reports that he has been on warfarin for atrial fibrillation. He was started on Plavix and aspirin after his cardiac stent 2-3 weeks ago. He reports over the past 1.5 weeks he has had black stools as well as occasional bright red blood per rectum. He reports that he overall feels well. He reports chronic dyspnea secondary to COPD but denies any acute dyspnea. He denies chest pain, lightheadedness, dizziness, abdominal pain, nausea, vomiting. He does not believe that he is ever had a endoscopy. He believes that he may have had a colonoscopy in the past but he does not remember when. He has no other complaints. Related Data Home Medications Medication Instructions Recorded Confirmed aspirin 81 mg PO DAILY 08/06/18 08/06/18 clopidogrel 75 mg PO DAILY 08/06/18 08/06/18 metoprolol tartrate 50 mg PO DAILY 08/06/18 08/06/18 warfarin 5 mg PO DAILY 08/06/18 08/06/18 Allergies Allergy/AdvReac Type Severity Reaction Status Date / Time trazodone Allergy Intermediate ERECTION Unverified 08/06/18 14:45 FOR DAYS Review of Systems ROS: all other systems reviewed are negative [facility] Medical History Medical History Afib (Acute) COPD (chronic obstructive pulmonary disease) (Acute) High cholesterol (Acute) Surgical History Surgical History H/O aorto-femoral bypass (Acute) H/O heart artery stent (Acute) Hx of shoulder surgery (Acute) Social History Social History Substance History: No History of Abuse Second Hand Smoke Exposure: Yes Smoking Status: Current every day smoker Tobacco Type: Cigarettes How Often Do You Have a Drink Containing Alcohol: 4 or more times a week Recent Travel in [facility] within the Last 8 Weeks: No Recent Out of Country Travel within the Last 8 Weeks: No Immunization History Tetanus Immunization: Unsure Exam Narrative Exam Narrative: GENERAL: Well-developed well-nourished male no acute distress SKIN: Warm and dry. HEAD: Atraumatic. Normocephalic. EYES: Pupils equal and round. No scleral icterus. No injection or drainage. ENT: No nasal bleeding or discharge. Mucous membranes pink and moist. NECK: Trachea midline. No JVD. CARDIOVASCULAR: Regular rate and rhythm. No murmur appreciated. RESPIRATORY: No accessory muscle use. Clear to auscultation. Breath sounds equal bilaterally. GASTROINTESTINAL: Abdomen soft, non-tender, nondistended. Hepatic and splenic margins not palpable. Rectal examination reveals external hemorrhoid at the 12 o'clock position. Stool is dark brown and it is Hemoccult positive. MUSCULOSKELETAL: No obvious deformities. No clubbing. No cyanosis. No edema. NEUROLOGICAL: Awake and alert. No obvious cranial nerve deficits. Motor grossly within normal limits. Normal speech. Procedures Hemaprompt Stool Procedural Steps Taken: specimen placed in appropriate test area, developer placed on specimen and control areas and controls appropriately positive and negative Hemaprompt Stool Result: positive Course Initial Documented Vital Signs Temperature 98.2 F 08/06/18 14:40 Pulse Rate 72 08/06/18 14:40 Respiratory Rate 16 08/06/18 14:40 Blood Pressure 140/70 08/06/18 14:40 Pulse Oximetry 95 08/06/18 14:40 Last Documented Vital Signs Temperature 98.2 F 08/06/18 14:40 Pulse Rate 77 08/06/18 19:32 Respiratory Rate 20 08/06/18 19:32 Blood Pressure 184/83 H 08/06/18 19:32 Pulse Oximetry 97 08/06/18 19:34 Medical Decision Making MDM Narrative Medical decision making narrative: Lab work will be obtained, Protonix administered, Hemoccult positive stool. Lab work has been reviewed and found to be reassuring, hemoglobin is stable, INR is 1.9. The patient will be admitted for observation. Medical Screen Exam Complete: Yes Emergency Medical Condition: Yes Differential Diagnosis Differential Diagnosis: Upper GI bleed, lower GI bleed, diverticulitis, AV malformation, malignancy, hypo-coagulopathy, hemorrhoid Lab Data Result diagrams: 08/06/18 19:40 08/06/18 19:40 Lab Results 08/06/18 08/06/18 08/06/18 Range/Units 19:40 19:40 19:40 WBC 6.1 (4.0-11.0) th/mm3 RBC 4.16 L (4.50-5.90) mil/mm3 Hgb 13.6 (13.0-17.0) gm/dL Hct 39.6 (39.0-51.0) % MCV 95.2 (80.0-100.0) fL MCH 32.7 (27.0-34.0) pg MCHC 34.4 (32.0-36.0) % RDW 14.8 (11.6-17.2) % Plt Count 310 (150-450) th/mm3 MPV 7.1 (7.0-11.0) fL Neut % (Auto) 50.8 (16.0-70.0) % Lymph % (Auto) 26.3 (9.0-44.0) % Gregory % (Auto) 8.3 H (0.0-8.0) % Eos % (Auto) 11.9 H (0.0-4.0) % Baso % (Auto) 2.7 H (0.0-2.0) % Neut # (Auto) 3.1 (1.8-7.7) th/mm3 Lymph # (Auto) 1.6 (1.0-4.8) th/mm3 Gregory # (Auto) 0.5 (0.0-0.9) th/mm3 Eos # (Auto) 0.7 H (0.0-0.4) th/mm3 Baso # (Auto) 0.2 (0.0-0.2) th/mm3 WBC Differential . Differential Comment Auto diff final PT 19.4 H (9.8-11.6) sec INR 1.9 Ratio APTT 33.6 H (23.4-31.7) sec Sodium 132 L (136-145) meq/L Potassium 4.5 (3.5-5.1) meq/L Chloride 95 L (98-107) meq/L Carbon Dioxide 29.9 (21.0-32.0) meq/L Anion Gap 7 (5-15) meq/L BUN 12 (7-18) mg/dL Creatinine 0.90 (0.60-1.30) mg/dL Estimated GFR 83 L (>89) mL/min Random Glucose 82 (74-106) mg/dL Calcium 9.3 (8.5-10.1) mg/dL Total Bilirubin 0.2 (0.2-1.0) mg/dL AST 34 (15-37) U/L ALT 43 (12-78) U/L Alkaline Phosphatase 92 (45-117) U/L Total Protein 8.2 (6.4-8.2) g/dL Albumin 4.1 (3.4-5.0) g/dL Blood Type Blood Type Recheck Antibody Screen 08/06/18 Range/Units 19:40 WBC (4.0-11.0) th/mm3 RBC (4.50-5.90) mil/mm3 Hgb (13.0-17.0) gm/dL Hct (39.0-51.0) % MCV (80.0-100.0) fL MCH (27.0-34.0) pg MCHC (32.0-36.0) % RDW (11.6-17.2) % Plt Count (150-450) th/mm3 MPV (7.0-11.0) fL Neut % (Auto) (16.0-70.0) % Lymph % (Auto) (9.0-44.0) % Gregory % (Auto) (0.0-8.0) % Eos % (Auto) (0.0-4.0) % Baso % (Auto) (0.0-2.0) % Neut # (Auto) (1.8-7.7) th/mm3 Lymph # (Auto) (1.0-4.8) th/mm3 Gregory # (Auto) (0.0-0.9) th/mm3 Eos # (Auto) (0.0-0.4) th/mm3 Baso # (Auto) (0.0-0.2) th/mm3 WBC Differential Differential Comment PT (9.8-11.6) sec INR Ratio APTT (23.4-31.7) sec Sodium (136-145) meq/L Potassium (3.5-5.1) meq/L Chloride (98-107) meq/L Carbon Dioxide (21.0-32.0) meq/L Anion Gap (5-15) meq/L BUN (7-18) mg/dL Creatinine (0.60-1.30) mg/dL Estimated GFR (>89) mL/min Random Glucose (74-106) mg/dL Calcium (8.5-10.1) mg/dL Total Bilirubin (0.2-1.0) mg/dL AST (15-37) U/L ALT (12-78) U/L Alkaline Phosphatase (45-117) U/L Total Protein (6.4-8.2) g/dL Albumin (3.4-5.0) g/dL Blood Type A Positive Blood Type Recheck Antibody Screen Negative Discharge Plan Discharge Disposition Patient Disposition: 30 Still Patient Discharge Condition Condition: Stable Discharge Details Diagnosis: GI bleed Physicians Team ED Provider: Hao Valero ED Midlevel Provider: Liam Devries Primary Care Provider: [facility],Physician 's Rxs /Orders / Referrals /Forms Prescriptions: No Action clopidogrel 75 mg Tablet 75 mg PO DAILY RF: 0 warfarin 5 mg Tablet 5 mg PO DAILY RF: 0 metoprolol tartrate 50 mg Tablet 50 mg PO DAILY RF: 0 aspirin 81 mg Tablet,Chewable 81 mg PO DAILY RF: 0 Discharge Interventions Interventions: Vital Signs Last Done: 08/06/18 19:32 Status ED Status: With Doctor
[2018-08-06 19:58] LABS: Baso # (Auto) 0.2 th/mm3 (0.0-0.2); Baso % (Auto) 2.7 % (0.0-2.0); Eos # (Auto) 0.7 th/mm3 (0.0-0.4); Eos % (Auto) 11.9 % (0.0-4.0); Hematocrit 39.6 % (39.0-51.0); Hemoglobin 13.6 gm/dL (13.0-17.0); Lymph # (Auto) 1.6 th/mm3 (1.0-4.8); Lymph % (Auto) 26.3 % (9.0-44.0); Mean Corpuscular HGB Conc 34.4 % (32.0-36.0); Mean Corpuscular Hemoglobin 32.7 pg (27.0-34.0); Mean Corpuscular Volume 95.2 fL (80.0-100.0); Mean Platelet Volume 7.1 fL (7.0-11.0); Mono # (Auto) 0.5 th/mm3 (0.0-0.9); Mono % (Auto) 8.3 % (0.0-8.0); Neut # (Auto) 3.1 th/mm3 (1.8-7.7); Neut % (Auto) 50.8 % (16.0-70.0); Platelet Count 310 th/mm3 (150-450); Red Blood Count 4.16 mil/mm3 (4.50-5.90); Red Cell Distribution Width 14.8 % (11.6-17.2); White Blood Count 6.1 th/mm3 (4.0-11.0)
[2018-08-06 20:06] LABS: Activated Partial Thrombo Time 33.6 sec (23.4-31.7); INR 1.9 Ratio; Prothrombin Time 19.4 sec (9.8-11.6)
[2018-08-06 20:19] LABS: Alanine Aminotransferase 43 U/L (12-78); Albumin 4.1 g/dL (3.4-5.0); Anion Gap 7 meq/L (5-15); Aspartate Aminotransferase 34 U/L (15-37); Blood Urea Nitrogen 12 mg/dL (7-18); Calcium 9.3 mg/dL (8.5-10.1); Carbon Dioxide 29.9 meq/L (21.0-32.0); Chloride 95 meq/L (98-107); Glomerular Filtration Rate 83 mL/min (>89); Glucose,Random 82 mg/dL (74-106); Potassium 4.5 meq/L (3.5-5.1); Sodium 132 meq/L (136-145)
[2018-08-06 20:22] LABS: Alkaline Phosphatase 92 U/L (45-117); Total Protein 8.2 g/dL (6.4-8.2)
[2018-08-06] MEDS ORDERED: Bisacodyl 10 MG Supp RECTAL PRN (20:50)
[2018-08-06] MEDS ORDERED: Acetaminophen 325 MG Tablet PO PRN (20:50)
--- NOTE | 2018-08-06 20:51 | P.HPIM ---
History of Present Illness Primary Care Physician: [facility] History of Present Illness: This is a 73-year-old male with a PMH of Hyperlipidemia, A. fib on Coumadin and CAD s/p Stent 2wks ago on ASA/Plavix who was sent [place] the [place] from the [place] for eval of GI Bleeding. Pt notes black, tarry stool for approx 1-2 wks, w/ intermittent episodes of BRBPR. Denies hemoptysis or hematemesis. No c/o chest pain or SOB. On arrival, BP 184/83, HR 77, O2 sat 97% on RA, Afebrile. Hemoglobin 13.6. INR 1.9. Chemistry unremarkable. Hemoccult +. S/p Protonix IV in ER. Pt currently without complaints. - Diagnosis (1) GI bleed (2) Afib (3) HTN (hypertension) Review of Systems PAST FAMILY HISTORY: Reviewed. No h/o DM or CAD All other systems reviewed negative except as stated in HPI PMFSH - History History Provided By: Patient - Medical History Medical History: Medical History (Last Updated 08/06/18 @ 19:33 by Toya Hawley) Afib COPD (chronic obstructive pulmonary disease) High cholesterol - Surgical History Surgical History: Surgical History (Last Updated 08/06/18 @ 19:31 by Toya Hawley) H/O aorto-femoral bypass H/O heart artery stent Hx of shoulder surgery - Tobacco History Second Hand Smoke Exposure: Yes Tobacco Use In Past 30 Days: Yes Smoking Status: Current every day smoker Tobacco Type: Cigarettes - Alcohol History How Often Do You Have a Drink Containing Alcohol: 4 or more times a week - Substance Use History Substance History: No History of Abuse - Travel History Recent Travel in the [place] Within the Last 8 Weeks: No Recent Travel Out of the Country Within the Last 8 Weeks: No - Immunization History Tetanus Immunization: Unsure Medications and Allergies Active Medications: Active Medications Sodium Chloride (Ns Flush) 2 ml IV.FLUSH PRN PRN PRN Reason: FLUSH AFTER USING IV ACCESS Last Admin: 08/06/18 19:45 Dose: 2 ml Allergies Allergy/AdvReac Type Severity Reaction Status Date / Time trazodone Allergy Intermediate ERECTION Unverified 08/06/18 14:45 FOR DAYS Home Medications Medication Instructions Recorded Confirmed Type aspirin 81 mg PO DAILY 08/06/18 08/06/18 History clopidogrel 75 mg PO DAILY 08/06/18 08/06/18 History metoprolol tartrate 50 mg PO DAILY 08/06/18 08/06/18 History warfarin 5 mg PO DAILY 08/06/18 08/06/18 History Exam Vital signs: Vital Signs 08/06/18 14:40 08/06/18 19:32 08/06/18 19:34 Temperature 98.2 F Pulse Rate 72 77 Respiratory Rate 16 20 Blood Pressure 140/70 184/83 H Pulse Oximetry 95 97 97 Intake & Output 08/06/18 08/06/18 08/07/18 06:59 18:59 06:59 Weight 75.75 kg Narrative: PE: GENERAL: Pleasant elderly white male in no acute distress. Family at bedside. SKIN: Focused skin assessment warm and dry. HEENT: PERRLA, EOMI. No scleral icterus or conjunctival pallor. No lid lag or facial droop. CARDIOVASCULAR: Regular rate and rhythm. No obvious murmurs to auscultation. No chest tenderness to palpation. RESPIRATORY: No obvious rhonchi or wheezing. Clear to auscultation. Breath sounds equal bilaterally. GASTROINTESTINAL: Abdomen soft, non-tender, nondistended. BS normal. MUSCULOSKELETAL: Extremities without clubbing, cyanosis, or edema. No obvious deformities. NEUROLOGICAL: Awake, alert and oriented x4. No focal neurologic deficits. Moving both upper and lower extremities spontaneously. PSYCHIATRIC: Appropriate mood and affect. Insight and judgment normal. Results - Labs CBC & Chem 7: 08/06/18 19:40 08/06/18 19:40 Labs: Short CBC 08/06/18 Range/Units 19:40 WBC 6.1 (4.0-11.0) th/mm3 Hgb 13.6 (13.0-17.0) gm/dL Hct 39.6 (39.0-51.0) % Plt Count 310 (150-450) th/mm3 BMP 08/06/18 19:40 Sodium 132 L Potassium 4.5 Chloride 95 L Carbon Dioxide 29.9 BUN 12 Creatinine 0.90 Calcium 9.3 Liver Function 08/06/18 Range/Units 19:40 Total Bilirubin 0.2 (0.2-1.0) mg/dL AST 34 (15-37) U/L ALT 43 (12-78) U/L Alkaline Phosphatase 92 (45-117) U/L Albumin 4.1 (3.4-5.0) g/dL Caprini VTE Risk Assessment Caprini VTE Risk Assessment: No/Low Risk (score <= 1) VTE Pharmacological Exception Reason: Active bleeding Caprini Risk Assessment Model: Point Value = 1 Point Value = 2 Point Value = 3 Point Value = 5 Age 41-60 Minor surgery BMI > 25 kg/m2 Swollen legs Varicose veins or History of unexplained or recurrent spontaneous Oral contraceptives or hormone replacement Sepsis (< 1 month) Serious lung disease, including pneumonia (< 1 month) Abnormal pulmonary function Acute myocardial infarction Congestive heart failure (< 1 month) History of inflammatory bowel disease Medical patient at bed rest Age 61-74 Arthroscopic surgery Major open surgery (> 45 min) Laparoscopic surgery (> 45 min) Malignancy Confined to bed (> 72 hours) Immobilizing plaster cast Central venous access Age >= 75 History of VTE Family history of VTE Factor V Leiden Prothrombin [id number] Lupus anticoagulant Anticardiolipin antibodies Elevated serum homocysteine Heparin-induced thrombocytopenia Other congenital or acquired thrombophilia Stroke (< 1 month) Elective arthroplasty Hip, pelvis, or leg fracture Acute spinal cord injury (< 1 month) Prophylaxis Regimen: Total Risk Factor Score Risk Level Prophylaxis Regimen 0-1 Low Early ambulation 2 Moderate Order ONE of the following: *Sequential Compression Device (SCD) *Heparin 5000 units SQ BID 3-4 Higher Order ONE of the following medications: *Heparin 5000 units SQ TID *Enoxaparin/Lovenox 40 mg SQ daily (WT < 150 kg, CrCl > 30 mL/min) *Enoxaparin/Lovenox 30 mg SQ daily (WT < 150 kg, CrCl > 10-29 mL/min) *Enoxaparin/Lovenox 30 mg SQ BID (WT < 150 kg, CrCl > 30 mL/min) AND/OR *Sequential Compression Device (SCD) 5 or more Highest Order ONE of the following medications: *Heparin 5000 units SQ TID (Preferred with Epidurals) *Enoxaparin/Lovenox 40 mg SQ daily (WT < 150 kg, CrCl > 30 mL/min) *Enoxaparin/Lovenox 30 mg SQ daily (WT < 150 kg, CrCl > 10-29 mL/min) *Enoxaparin/Lovenox 30 mg SQ BID (WT < 150 kg, CrCl > 30 mL/min) AND *Sequential Compression Device (SCD) Assessment and Plan - Assessment (1) GI bleed Code(s): K92.2 - Gastrointestinal hemorrhage, unspecified Status: Acute (2) Afib Code(s): I48.91 - Unspecified atrial fibrillation Status: Acute (3) HTN (hypertension) Code(s): I10 - Essential (primary) hypertension Status: Acute - Plan A/P: 1. GI Bleed: +melena and BRBPR x2 wks, currently on Coumadin for A-fib and ASA /Plavix after stent placement 2wks ago. Hgb stable. Will hold anticoagulation for now until evaluated by GI, restart ASA/Plavix once cleared in light of recent stent placement. Protonix IV, repeat Hgb/Hct in am. 2. A-fib: Chronic, on Coumadin, will hold for now as above. INR essentially therapeutic at 1.9, repeat INR in am. 3. HTN: Uncontrolled. BP 180's, resume home medications, monitor BP, antihypertensives as needed for BP >180 4. Tobacco Abuse: Pt counselled. NicoDerm prn if needed. 5. DVT Prophylaxis: Resume anticoagulation once GI Bleed stabilized 6. Social work for d/c planning as needed. 7. Case discussed w/ ER physician at length, labs/records/imaging reviewed by me.
[2018-08-06] MEDS: Sod Chloride 0.9% Inj 1,000 ML IV.CONT SCH (21:00)
[2018-08-06] MEDS: Metoprolol Tartrate 50 MG Tablet PO SCH (22:17)
[2018-08-06] MEDS: Senna/Docusate Sodium 8.6/50 MG Tablet PO SCH (22:17)
[2018-08-07] MEDS: Sod Chloride 0.9% Inj 1,000 ML IV.CONT SCH ×2 (06:03→17:00)
[2018-08-07 07:15] LABS: Prothrombin Time 20.4 sec (9.8-11.6)
[2018-08-07 07:16] LABS: Baso # (Auto) 0.1 th/mm3 (0.0-0.2); Baso % (Auto) 1.2 % (0.0-2.0); Eos # (Auto) 0.6 th/mm3 (0.0-0.4); Eos % (Auto) 10.5 % (0.0-4.0); Hematocrit 34.5 % (39.0-51.0); Hemoglobin 11.7 gm/dL (13.0-17.0); Lymph # (Auto) 1.1 th/mm3 (1.0-4.8); Mean Corpuscular HGB Conc 33.9 % (32.0-36.0); Mean Corpuscular Hemoglobin 32.8 pg (27.0-34.0); Mean Corpuscular Volume 96.8 fL (80.0-100.0); Mean Platelet Volume 7.5 fL (7.0-11.0); Mono # (Auto) 0.6 th/mm3 (0.0-0.9); Mono % (Auto) 10.5 % (0.0-8.0); Neut # (Auto) 3.3 th/mm3 (1.8-7.7); Neut % (Auto) 58.8 % (16.0-70.0); Platelet Count 262 th/mm3 (150-450); Red Blood Count 3.57 mil/mm3 (4.50-5.90); Red Cell Distribution Width 14.9 % (11.6-17.2); White Blood Count 5.6 th/mm3 (4.0-11.0)
[2018-08-07 07:42] LABS: Alanine Aminotransferase 31 U/L (12-78); Albumin 3.1 g/dL (3.4-5.0); Alkaline Phosphatase 66 U/L (45-117); Anion Gap 8 meq/L (5-15); Aspartate Aminotransferase 22 U/L (15-37); Blood Urea Nitrogen 11 mg/dL (7-18); Calcium 8.6 mg/dL (8.5-10.1); Carbon Dioxide 27.1 meq/L (21.0-32.0); Chloride 101 meq/L (98-107); Glomerular Filtration Rate Greater Than 89 mL/min (>89); Glucose,Random 95 mg/dL (74-106); Potassium 4.3 meq/L (3.5-5.1); Sodium 136 meq/L (136-145); Total Protein 6.3 g/dL (6.4-8.2)
[2018-08-07] MEDS ORDERED: Metoprolol Tartrate 50 MG Tablet PO SCH (09:00)
[2018-08-07] MEDS: Senna/Docusate Sodium 8.6/50 MG Tablet PO SCH ×2 (09:13→21:08)
[2018-08-07] MEDS: Metoprolol Tartrate 50 MG Tablet PO SCH ×2 (09:13→21:08)
[2018-08-07] MEDS: Pantoprazole Inj 40 MG Vial IV.PUSH SCH ×2 (09:14→21:08)
--- NOTE | 2018-08-07 09:33 | P.PNIM ---
Subjective Interval history: had black stool again about 5 in the morning. No dizziness or lightheadedness. no abdominal pain. Physical Exam Vital signs: Last Vital Signs Temp 98.7 F 08/07/18 03:15 Pulse 62 08/07/18 03:15 Resp 18 08/07/18 03:15 BP 123/66 08/07/18 03:15 Pulse Ox 96 08/07/18 03:15 Intake & Output 08/05/18 08/06/18 08/07/18 08/08/18 06:59 06:59 06:59 06:59 Intake Total 1000 / 1000 Balance 1000 / 1000 Weight 75.75 kg Narrative: PE: GENERAL: Pleasant elderly white male in no acute distress. SKIN: warm and dry. HEENT: not pale,anicteric CARDIOVASCULAR: Regular rate and rhythm. No obvious murmurs to auscultation. No chest tenderness to palpation. RESPIRATORY: No obvious rhonchi or wheezing. Clear to auscultation. Breath sounds equal bilaterally. GASTROINTESTINAL: Abdomen soft, non-tender, nondistended.no organomegaly, normoactive bowel sounds. MUSCULOSKELETAL: Extremities without clubbing, cyanosis, or edema. No obvious deformities. NEUROLOGICAL: Awake, alert and oriented x4. No focal neurologic deficits. Moving both upper and lower extremities spontaneously. PSYCHIATRIC: Appropriate mood and affect. Insight and judgment normal. Results Labs CBC & Chem 7: 08/07/18 05:46 08/07/18 05:46 Assessment and Plan (1) GI bleed: Code(s): K92.2 - Gastrointestinal hemorrhage, unspecified Status: Acute (2) Afib: Code(s): I48.91 - Unspecified atrial fibrillation Status: Acute (3) HTN (hypertension): Code(s): I10 - Essential (primary) hypertension Status: Acute Plan 1. GI Bleed: +melena and BRBPR x2 wks,was on Coumadin for A-fib and ASA/ Plavix after stent placement 2wks ago. still having melena. Hb trended down overnight from 13.6-->11.7g/dl. monitor H/h q6h. Cont IV Protonix GI consulted ,appreciate recs, patient for EGD tomorrow. 2. 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 A-fib: Chronic, Coumadin on hold for now given GI bleed. 3. HTN: Uncontrolled. BP 180's, resume home medications, monitor BP, antihypertensives as needed for BP >180 4. Tobacco Abuse: Pt counselled. Alicia brooks if needed--declines it for now. DVT Prophylaxis: no anticoagulation for now given GI Bleed Social work for d/c planning as needed. Progress Note: Quality VTE Deep Vein Thrombosis/Pulmonary Embolism Present on Admission: No _ (1) GI bleed Qualifiers: GI bleed type/associated pathology: Gastritis type: (2) Afib Qualifiers: Atrial fibrillation type: (3) HTN (hypertension) Qualifiers: Hypertension type:
--- NOTE | 2018-08-07 10:06 | P.CONGI ---
History of Present Illness Consult date: 08/07/18 Consult reason: GI bleed Chief complaint: GI bleed History of Present Illness: This is a well-nourished 73-year-old male who came into the hospital on 2017 with symptoms of black tarry melena stools for approximately 1 week and associated small amounts of bright red rectal bleeding when wiping. Patient states he does have a history of hemorrhoids and last colonoscopy was with the CT approximately 2 years ago. Patient has significant cardiac history atrial fibrillation, and with recent stent [address] and was placed on aspirin, Plavix, and Coumadin. Current PT/INR is 2, initial hemoglobin was 13.6 on admission and now 11.7, bilirubin and LFTs are normal. Patient denies any acute nausea or vomiting, no fever, no abdominal pain no dyspepsia or dysphasia. Patient did have positive Hemoccult in the ER and was currently n.p.o. at midnight. Gastroenterology was consulted to assist with his symptoms and plan of care. Patient denies any family history of colon cancer and no previous EGD. Review of Systems All other systems reviewed negative except as stated in HPI PMFSH - History History Provided By: Patient - Medical History Medical History: Medical History (Last Updated 08/06/18 @ 19:33 by Toya Hawley) Afib COPD (chronic obstructive pulmonary disease) High cholesterol - Surgical History Surgical History: Surgical History (Last Updated 08/06/18 @ 19:31 by Toya Hawley) H/O aorto-femoral bypass H/O heart artery stent Hx of shoulder surgery - Tobacco History Second Hand Smoke Exposure: Yes Tobacco Use In Past 30 Days: Yes Smoking Status: Current every day smoker Tobacco Type: Cigarettes - Alcohol History How Often Do You Have a Drink Containing Alcohol: 4 or more times a week - Substance Use History Substance History: No History of Abuse - Travel History Recent Travel in the [place] Within the Last 8 Weeks: No Recent Travel Out of the Country Within the Last 8 Weeks: No - Immunization History Tetanus Immunization: Unsure Medications and Allergies Active Medications: Active Medications Acetaminophen (Tylenol) 650 mg PO Q4H PRN PRN Reason: Temp > 100.4 Al Hydroxide/Mg Hydroxide (Milk Of Magnesia Liq) 30 ml PO Q12H PRN PRN Reason: Mild Constipation Bisacodyl (Dulcolax Supp) 10 mg RECTAL DAILY PRN PRN Reason: SEVERE CONSITIPATION Sodium Chloride (Ns Inj) 1,000 mls @ 100 mls/hr IV.CONT .Q10H [facility] Last Admin: 08/07/18 06:03 Dose: 100 mls/hr Lactulose (Lactulose Liq) 30 ml PO DAILY PRN PRN Reason: SEVERE CONSITIPATION Metoprolol Tartrate (Lopressor) 50 mg PO BID [facility] Last Admin: 08/07/18 09:13 Dose: 50 mg Ondansetron HCl (Zofran Inj) 4 mg IV.PUSH Q6H PRN PRN Reason: NAUSEA OR VOMITING Pantoprazole Sodium (Protonix Inj) 40 mg IV.PUSH Q12H [facility] Last Admin: 08/07/18 09:14 Dose: 40 mg Senna/Docusate Sodium (Kristel-Colace) 1 tab PO BID [facility] Last Admin: 08/07/18 09:13 Dose: 1 tab Sennosides (Senokot) 17.2 mg PO Q12H PRN PRN Reason: Moderate Constipation Sodium Chloride (Ns Flush) 2 ml IV.FLUSH PRN PRN PRN Reason: FLUSH AFTER USING IV ACCESS Last Admin: 08/06/18 19:45 Dose: 2 ml Allergies Allergy/AdvReac Type Severity Reaction Status Date / Time trazodone Allergy Intermediate ERECTION Unverified 08/06/18 14:45 FOR DAYS Home Medications Medication Instructions Recorded Confirmed Type aspirin 81 mg PO DAILY 08/06/18 08/06/18 History clopidogrel 75 mg PO DAILY 08/06/18 08/06/18 History metoprolol tartrate 50 mg PO DAILY 08/06/18 08/06/18 History warfarin 5 mg PO DAILY 08/06/18 08/06/18 History Exam Vital signs: Vital Signs 08/06/18 14:40 08/06/18 19:32 08/06/18 19:34 Temperature 98.2 F Pulse Rate 72 77 Respiratory Rate 16 20 Blood Pressure 140/70 184/83 H Pulse Oximetry 95 97 97 08/06/18 21:50 08/06/18 23:08 08/07/18 03:15 Temperature 98 F 98.7 F Pulse Rate 84 71 62 Respiratory Rate 24 18 18 Blood Pressure 120/61 127/68 123/66 Pulse Oximetry 95 94 L 96 Intake & Output 08/06/18 08/07/18 08/07/18 18:59 06:59 18:59 Intake Total 1000 / 1000 Balance 1000 / 1000 Weight 75.75 kg 75.75 kg Intake: IV 1000 / 1000 NS Inj 1,000 ML @ 100 mls/hr IV 1000 / 1000 .CONT .Q10H FERNANDO Rx#:[id number] Other: # Voids 1 Date of Last Bowel Movement 08/05/18 Weight On Admission 75.75 kg - Constitutional no acute distress, disheveled, cooperative - Routine HEENT Exam Head: Present: normocephalic, atraumatic ENT: Present: mucous membranes moist - Routine Neck Exam Present: supple - Routine Respiratory Exam Present: accessory muscle use (Cough some mild audible wheeze, smoker) - Routine Cardiovascular Exam Present: S1, S2, irregular rhythm (History of atrial fibrillation heart rate 60s ) - Routine Abdominal Exam Present: soft, normoactive bowel sounds (No obvious tenderness or distention) - Routine Neurological Exam Present: alert Results - Labs CBC & Chem 7: 08/07/18 05:46 08/07/18 05:46 Labs: Laboratory Results - last 24 hr 08/06/18 08/06/18 08/06/18 19:40 19:40 19:40 WBC 6.1 RBC 4.16 L Hgb 13.6 Hct 39.6 MCV 95.2 MCH 32.7 MCHC 34.4 RDW 14.8 Plt Count 310 MPV 7.1 Neut % (Auto) 50.8 Lymph % (Auto) 26.3 Hamilton % (Auto) 8.3 H Eos % (Auto) 11.9 H Baso % (Auto) 2.7 H Neut # (Auto) 3.1 Lymph # (Auto) 1.6 Hamilton # (Auto) 0.5 Eos # (Auto) 0.7 H Baso # (Auto) 0.2 WBC Differential . Differential Comment Auto diff final PT 19.4 H INR 1.9 APTT 33.6 H Sodium 132 L Potassium 4.5 Chloride 95 L Carbon Dioxide 29.9 Anion Gap 7 BUN 12 Creatinine 0.90 Estimated GFR 83 L Random Glucose 82 Calcium 9.3 Total Bilirubin 0.2 AST 34 ALT 43 Alkaline Phosphatase 92 Total Protein 8.2 Albumin 4.1 Blood Type Blood Type Recheck Antibody Screen 08/06/18 08/07/1818 19:40 05:46 05:46 WBC 5.6 RBC 3.57 L Hgb 11.7 L Hct 34.5 L MCV 96.8 MCH 32.8 MCHC 33.9 RDW 14.9 Plt Count 262 MPV 7.5 Neut % (Auto) 58.8 Lymph % (Auto) 19.0 Hamilton % (Auto) 10.5 H Eos % (Auto) 10.5 H Baso % (Auto) 1.2 Neut # (Auto) 3.3 Lymph # (Auto) 1.1 Hamilton # (Auto) 0.6 Eos # (Auto) 0.6 H Baso # (Auto) 0.1 WBC Differential . Differential Comment Auto diff final PT 20.4 H INR 2.0 APTT Sodium Potassium Chloride Carbon Dioxide Anion Gap BUN Creatinine Estimated GFR Random Glucose Calcium Total Bilirubin AST ALT Alkaline Phosphatase Total Protein Albumin Blood Type A Positive Blood Type Recheck Antibody Screen Negative 08/07/18 05:46 WBC RBC Hgb Hct MCV MCH MCHC RDW Plt Count MPV Neut % (Auto) Lymph % (Auto) Hamilton % (Auto) Eos % (Auto) Baso % (Auto) Neut # (Auto) Lymph # (Auto) Hamilton # (Auto) Eos # (Auto) Baso # (Auto) WBC Differential Differential Comment PT INR APTT Sodium 136 Potassium 4.3 Chloride 101 Carbon Dioxide 27.1 Anion Gap 8 BUN 11 Creatinine 0.57 L Estimated GFR Greater than 89 Random Glucose 95 Calcium 8.6 Total Bilirubin 0.4 AST 22 ALT 31 Alkaline Phosphatase 66 Total Protein 6.3 L D Albumin 3.1 L D Blood Type Blood Type Recheck Antibody Screen Assessment and Plan - Plan 73-year-old male who came into the hospital on 08/06/2018 with symptoms of black tarry melena stools for approximately 1 week and associated small amounts of bright red rectal bleeding when wiping. Patient states he does have a history of hemorrhoids and last colonoscopy was with the CT approximately 2 years ago. Patient has significant cardiac history atrial fibrillation, and with recent stent [address] and was placed on aspirin, Plavix, and Coumadin. Current PT/INR is 2, initial hemoglobin was 13.6 on admission and now 11.7, bilirubin and LFTs are normal. Patient denies any acute nausea or vomiting, no fever, no abdominal pain no dyspepsia or dysphasia. Patient did have positive Hemoccult in the ER and was currently n.p.o. at midnight. Gastroenterology was consulted to assist with his symptoms and plan of care. Patient denies any family history of colon cancer and no previous EGD. Melena stools for at least a week per patient and family, H&P states 1-2 weeks. Patient is currently on aspirin, Plavix, and Coumadin which aggravates his symptoms. Bright red rectal bleeding denies any current straining or constipation. Onset of the symptoms at the same time of melena 1-2 weeks ago. Daily alcohol consumption and long-term smoker, bilirubin and LFTs are normal Symptomatic anemia currently 11.7, with bright red rectal blood and melena stools Currently blood thinners are on hold and since patient is fresh cardiac stent and on 3 different anticoagulants we need cardiology consult for his plan of care and clearance for any GI procedures which could include EGD and/or colonoscopy. Patient is feeling much better and is hoping to go home but discussed with him the need for stabilization before he goes. Addendum note patient was cleared per cardiology for EGD in a.m. currently stable without any abdominal pain no nausea no vomiting Plan Diet initially n.p.o. but will change to cardiac diet N.p.o. at midnight Consent for EGD in a.m. PPI IV Bowel regimen Monitor labs with special attention to hemoglobin and transfuse as needed Encourage no straining Supportive care, further recommendations to follow Patient was seen per myself and Dr. Aly, note was written on his behalf
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
[2018-08-07 16:22] LABS: Hematocrit 31.2 % (39.0-51.0); Hemoglobin 11.2 gm/dL (13.0-17.0)
[2018-08-07 21:59] LABS: Hematocrit 29.7 % (39.0-51.0); Hemoglobin 10.9 gm/dL (13.0-17.0)
[2018-08-08] MEDS: Sod Chloride 0.9% Inj 1,000 ML IV.CONT SCH ×3 (01:16→13:00)
[2018-08-08] MEDS: Metoprolol Tartrate 50 MG Tablet PO SCH ×2 (09:48→21:06)
[2018-08-08] MEDS: Senna/Docusate Sodium 8.6/50 MG Tablet PO SCH ×2 (09:48→21:11)
[2018-08-08] MEDS: Pantoprazole Inj 40 MG Vial IV.PUSH SCH ×2 (09:49→21:06)
--- NOTE | 2018-08-08 14:53 | P.PN ---
Subjective Interval history: Patient is seen lying quietly in bed. He reports no additional bowel movements. No nausea or vomiting. No chest pain or shortness of breath. Physical Exam Vital signs: Vital Signs 08/07/18 16:00 08/07/18 20:00 08/08/18 00:00 Temperature 98.4 F 98.4 F 98.4 F Pulse Rate 66 63 62 Respiratory Rate 16 19 19 Blood Pressure 138/71 151/77 H 142/72 H Pulse Oximetry 94 L 96 97 08/08/18 04:00 08/08/18 08:00 08/08/18 12:00 Temperature 98.1 F 97.9 F 98.7 F Pulse Rate 60 56 L 55 L Respiratory Rate 19 16 16 Blood Pressure 130/72 145/73 H 143/75 H Pulse Oximetry 99 95 96 Intake & Output 08/07/18 08/08/18 08/08/18 18:59 06:59 18:59 Intake Total 1480 / 1480 1480 / 1480 Balance 1480 / 1480 1480 / 1480 Weight 75.68 kg Intake: IV 1000 / 1000 1000 / 1000 NS Inj 1,000 ML @ 100 mls/hr IV 1000 / 1000 1000 / 1000 .CONT .Q10H FERNANDO Rx#:[id number] Oral 480 / 480 480 / 480 Other: # Voids 4 4 Date of Last Bowel Movement 08/05/18 08/07/18 08/07/18 # Bowel Movements 4 Narrative: GENERAL: Well-nourished, well-developed adult male in no obvious distress. SKIN: Warm and dry. HEAD: Atraumatic. Normocephalic. CARDIOVASCULAR: Regular rate and rhythm. RESPIRATORY: No accessory muscle use. Clear to auscultation. Breath sounds equal bilaterally. GASTROINTESTINAL: Abdomen soft, non-tender, non-distended. Positive bowel sounds. MUSCULOSKELETAL: Extremities without clubbing, cyanosis, or edema. No obvious deformities. NEUROLOGICAL: Awake and alert. No obvious cranial nerve deficits. Motor grossly within normal limits. Normal speech. PSYCHIATRIC: Appropriate mood and affect; insight and judgment good. Results - Labs CBC & Chem 7: 08/07/18 21:50 08/07/18 05:46 Laboratory Results - last 24 hr 08/07/18 08/07/18 15:45 21:50 Hgb 11.2 L 10.9 L Hct 31.2 L 29.7 L Assessment and Plan - Assessment (1) GI bleed Code(s): K92.2 - Gastrointestinal hemorrhage, unspecified Status: Acute (2) Afib Code(s): I48.91 - Unspecified atrial fibrillation Status: Acute (3) HTN (hypertension) Code(s): I10 - Essential (primary) hypertension Status: Acute - Plan 1. GI Bleed: +melena and BRBPR x2 wks,was on Coumadin for A-fib and ASA/ Plavix after stent placement 2wks ago. still having melena. Hb trended down overnight from 13.6-->11.7g/dl. monitor H/h q6h. Cont IV Protonix GI consulted ,appreciate recs, patient for EGD today. 2. CAD s/p LAD stent 2weeks [employer]-cont ASA/Plavix,appreciate cardiology recs. A-fib: Chronic, Coumadin on hold for now given GI bleed. Cardio recommends restart per GI. 3. HTN: Uncontrolled. BP 180's, resume home medications, monitor BP, antihypertensives as needed for BP >180 4. Tobacco Abuse: Pt counselled. NicoDerm prn if needed--declines it for now. DVT Prophylaxis: no anticoagulation for now given GI Bleed Social work for d/c planning as needed.
--- NOTE | 2018-08-08 15:03 | GIPROC ---
[facility] [address] [facility]. [facility], [address] EGD PROCEDURE REPORT EXAM DATE: 08/08/2018 PATIENT NAME: Miky Vasquez MR #: [id number] BIRTHDATE: 1945 ATTENDING: Osito Trivedi ORDER #: [id number] SCUDDING INSPECTOR: Josesito Aburto and Josiane Rubio STATUS: inpatient INDICATIONS: The patient is a 73 yr old male here for an EGD due to epigastric abdominal pain and melena PROCEDURE PERFORMED: EGD w/ biopsy MEDICATIONS: None and Per Anesthesia. TOPICAL ANESTHETIC: CONSENT: The patient understands the risks and benefits of the procedure and understands that these risks include, but are not limited to: sedation, allergic reaction, infection, perforation and/or bleeding. Alternative means of evaluation and treatment include, among others: physical exam, x-rays, and/or surgical intervention. The patient elects to proceed with this endoscopic procedure. medical equipment was checked for proper function. Hand hygiene and appropriate measures for infection prevention was taken. After the risks, benefits and alternatives of the procedure were thoroughly explained, Informed consent was verified, confirmed and timeout was successfully executed by the treatment team. The patient was anesthetized with topical anesthesia and the [employer] [id number] endoscope was introduced through the mouth and advanced to the second portion of the duodenum. Retroflexed views revealed no abnormalities The gastroscope was then slowly withdrawn and removed. ESOPHAGUS: There was LA Class A esophagitis noted. A biopsy was performed using cold forceps. Sample obtained for microbiology. Sample sent for histology. STOMACH: There was erythematous moderate gastritis in the gastric antrum. A biopsy was performed using cold forceps. Sample sent for histology. DUODENUM: The duodenal mucosa appeared normal in the bulb and second portion of the duodenum. ADVERSE EVENTS: There were no complications. IMPRESSIONS: 1. There was LA Class A esophagitis noted; biopsy was performed 2. There was erythematous gastritis in the gastric antrum; biopsy was performed 3. Normal duodenal mucosa in the bulb and second portion of the duodenum 4. Retroflexed views revealed no abnormalities RECOMMENDATIONS: 1. Await biopsy results. Biopsy results will not be ready for 7-10 days. If you don't hear from us in two weeks, call our office for biopsy results. 2. Anti-reflux regimen 3. Colonoscopy 4. Continue PPI 5. Avoid NSAIDS PATIENT CONDITION: stable DISPOSITION: Inpatient REPEAT EXAM: Return 1 year EGD pending biopsy results Osito Trivedi eSigned: Osito Trivedi MD 08/08/2018 3:03 PM cc: PATIENT NAME: Miky Vasquez MR#: [id number]
[2018-08-09] MEDS: Sod Chloride 0.9% Inj 1,000 ML IV.CONT SCH ×2 (00:39→10:58)
[2018-08-09 08:03] VITALS: RESP 16
[2018-08-09] MEDS: Senna/Docusate Sodium 8.6/50 MG Tablet PO SCH (10:18)
--- NOTE | 2018-08-09 10:24 | P.PN ---
Subjective Interval history: Follow up for GIB: seen and examined, no cp, no sob. Stools brown, no hematemesis, no abd. pain, no n/v. Tolerating diet well. Physical Exam Vital signs: Vital Signs 08/08/18 12:00 08/08/18 16:00 08/08/18 16:25 Temperature 98.7 F 98.2 F Pulse Rate 55 L 61 59 L Respiratory Rate 16 16 Blood Pressure 143/75 H 166/82 H 148/72 H Pulse Oximetry 96 95 95 08/08/18 20:00 08/08/18 23:43 08/08/18 23:44 Temperature 98.4 F Pulse Rate 76 70 Respiratory Rate 18 16 Blood Pressure 135/67 Pulse Oximetry 95 95 08/09/18 00:00 08/09/18 04:00 08/09/18 07:00 Temperature 98.0 F 98.1 F Pulse Rate 64 58 L 75 Respiratory Rate 18 18 16 Blood Pressure 133/68 144/81 H Pulse Oximetry 93 L 96 08/09/18 08:00 08/09/18 10:05 Temperature 97.6 F Pulse Rate 58 L Respiratory Rate 16 Blood Pressure 143/77 H Pulse Oximetry 95 95 Intake & Output 08/08/18 08/09/18 08/09/18 18:59 06:59 18:59 Intake Total 680 / 680 240 / 240 Balance 680 / 680 240 / 240 Intake: Oral 480 / 480 240 / 240 Anesthesia Amount 200 / 200 Other: # Voids 4 4 Date of Last Bowel Movement 08/07/18 08/09/18 # Bowel Movements 4 1 Narrative: GENERAL: Well-nourished, well-developed adult male in no obvious distress. SKIN: Warm and dry. HEAD: Atraumatic. Normocephalic. CARDIOVASCULAR: Regular rate and rhythm, soft murmur. RESPIRATORY: No accessory muscle use. Clear to auscultation. Breath sounds equal bilaterally. GASTROINTESTINAL: Abdomen soft, non-tender, non-distended. Positive bowel sounds. MUSCULOSKELETAL: Extremities without clubbing, cyanosis, or edema. No obvious deformities. NEUROLOGICAL: Awake and alert. No obvious cranial nerve deficits. Motor grossly within normal limits. Normal speech. PSYCHIATRIC: Appropriate mood and affect; insight and judgment good. Results - Labs CBC & Chem 7: 08/09/18 12:20 11/10/18 05:46 Assessment and Plan - Assessment (1) GI bleed Code(s): K92.2 - Gastrointestinal hemorrhage, unspecified Status: Acute (2) Afib Code(s): I48.91 - Unspecified atrial fibrillation Status: Acute (3) HTN (hypertension) Code(s): I10 - Essential (primary) hypertension Status: Acute (4) CAD (coronary artery disease) Code(s): I25.10 - Atherosclerotic heart disease of [place] coronary artery without angina pectoris Status: Chronic (5) Hx of heart artery stent Code(s): Z95.5 - Presence of coronary angioplasty implant and graft Status: Chronic - Plan 73 year old presented at request of [facility] for black stools GI Bleed: +melena and BRBPR x2 wks,was on Coumadin for A-fib and ASA/Plavix after stent placement 2wks ago HH trended down from 13.6-->11.7g/dl -appreciate GI input -S/P EGD 07/29-There was LA Class A esophagitis noted/erythematous gastritis in the gastric antrum/Normal duodenal mucosa in the bulb and second portion of the duodenum/Retroflexed views revealed no abnormalities -HH stable, most recent 10.9/29.7 -continue ASA and Plavix -continue present diet CAD s/p LAD stent 2weeks [employer] -cont ASA/Plavix -appreciate cardiology recs. A-fib: Chronic, Coumadin on hold for now given GI bleed. -Cardio recommends restart per GI. -waiting for GI disposition HTN: Uncontrolled initially, better now -continue Lopressor -Antihypertensives as needed for BP >180 Tobacco Abuse -Pt counselled -NicoDerm prn if needed--declines it for now. Alcohol use, drinks 4 beers daily Counseled extensively about abstaining from alcohol use considering his medical issues. DVT Prophylaxis: no anticoagulation for now given GI Bleed, pt ambulatory Poss dc today when GI clears INR and HH today addendum labs reviewed, HH stable INR 1.3 d/w GI, ok to dc on PPI Ok to resume Coumadin F/u with [place] physician F/U GI Dr. Smith 7-10 days Diet heart healthy counselled extensive about heavy ETOH abuse D/W pt and at length Code Status: full code Discussed Condition With: RN, pt, CM Discharge Planning: Poss dc today if no further GI work up (4) CAD (coronary artery disease) Qualifiers: Coronary Disease-Associated Artery/Lesion type: [place] artery [place] vs. transplanted heart: [place] heart Associated angina: without angina Qualified Code(s): I25.10 - Atherosclerotic heart disease of [place] coronary artery without angina pectoris
[2018-08-09] MEDS: Metoprolol Tartrate 50 MG Tablet PO SCH (11:07)
[2018-08-09 12:10] VITALS: BP 145/73; PULSE 64; TEMP 98.5; O2SAT 97
[2018-08-09 12:39] LABS: Hematocrit 32.2 % (39.0-51.0); Hemoglobin 10.8 gm/dL (13.0-17.0)
[2018-08-09 12:50] LABS: INR 1.3 Ratio; Prothrombin Time 12.7 sec (9.8-11.6)
--- NOTE | 2018-08-09 13:40 | P.PNGI ---
Subjective Interval history: Resting in the bed denies any nausea vomiting or abdominal pain able to keep down liquids and foods. Denies any obvious hematemesis, does note occasional smear of bright red blood when wiping but minimal. Hemoglobin reviewed 10.9 <Victoria Ornelas - Last Filed: 08/09/18 13:35> Physical Exam Vital signs: Vital Signs 08/08/18 16:00 08/08/18 16:25 08/08/18 20:00 Temperature 98.2 F 98.4 F Pulse Rate 61 59 L 76 Respiratory Rate 16 18 Blood Pressure 166/82 H 148/72 H 135/67 Pulse Oximetry 95 95 95 08/08/18 23:43 08/08/18 23:44 08/09/18 00:00 Temperature 98.0 F Pulse Rate 70 64 Respiratory Rate 16 18 Blood Pressure 133/68 Pulse Oximetry 95 93 L 08/09/18 04:00 08/09/18 07:00 08/09/18 08:00 Temperature 98.1 F 97.6 F Pulse Rate 58 L 75 58 L Respiratory Rate 18 16 16 Blood Pressure 144/81 H 143/77 H Pulse Oximetry 96 95 08/09/18 10:05 08/09/18 12:00 Temperature 98.5 F Pulse Rate 64 Respiratory Rate 16 Blood Pressure 145/73 H Pulse Oximetry 95 97 Intake & Output 08/08/18 08/09/18 08/09/18 18:59 06:59 18:59 Intake Total 680 / 680 240 / 240 Balance 680 / 680 240 / 240 Intake: Oral 480 / 480 240 / 240 Anesthesia Amount 200 / 200 Other: # Voids 4 4 Date of Last Bowel Movement 08/07/18 08/09/18 # Bowel Movements 4 1 - Constitutional no acute distress, chronically ill appearing, cooperative - Routine HEENT Exam Head: Present: normocephalic ENT: Present: mucous membranes moist - Routine Respiratory Exam Present: accessory muscle use (No obvious shortness of breath) - Routine Cardiovascular Exam Present: S1 ( at rest), S2 - Routine Abdominal Exam Present: soft, normoactive bowel sounds, tenderness (None), distended (No obvious distention) <Victoria Ornelas - Last Filed: 08/09/18 13:35> Vital signs: Vital Signs 08/09/18 10:05 08/09/18 12:00 Temperature 98.5 F Pulse Rate 64 Respiratory Rate 16 Blood Pressure 145/73 H Pulse Oximetry 95 97 <Zafar Payan - Last Filed: 08/10/18 09:47> Results - Labs CBC & Chem 7: 08/09/18 12:20 08/07/18 05:46 Laboratory Results - last 24 hr 08/09/18 08/09/18 12:20 12:20 Hgb 10.8 L Hct 32.2 L PT 12.7 H INR 1.3 <Victoria Ornelas - Last Filed: 08/09/18 13:35> - Labs CBC & Chem 7: 08/09/18 12:20 08/07/18 05:46 Laboratory Results - last 24 hr 08/09/18 08/09/18 12:20 12:20 Hgb 10.8 L Hct 32.2 L PT 12.7 H INR 1.3 <Zafar Payan - Last Filed: 08/10/18 09:47> Assessment and Plan - Plan 73-year-old male who came into the hospital on 08/06/2018 with symptoms of black tarry melena stools for approximately 1 week and associated small amounts of bright red rectal bleeding when wiping. Patient states he does have a history of hemorrhoids and last colonoscopy was with the [facility] approximately 2 years ago. Patient has significant cardiac history atrial fibrillation, and with recent stent 2 weeks ago at the [facility] and was placed on aspirin, Plavix, and Coumadin. Current PT/INR is 2, initial hemoglobin was 13.6 on admission and now 11.7, bilirubin and LFTs are normal. Patient denies any acute nausea or vomiting, no fever, no abdominal pain no dyspepsia or dysphasia. Patient did have positive Hemoccult in the ER and was currently n.p.o. at midnight. Gastroenterology was consulted to assist with his symptoms and plan of care. Patient denies any family history of colon cancer and no previous EGD. Melena stools for at least a week per patient and family, H&P states 1-2 weeks. Patient is currently on aspirin, Plavix, and Coumadin which aggravates his symptoms. Bright red rectal bleeding denies any current straining or constipation. Onset of the symptoms at the same time of melena 1-2 weeks ago. Daily alcohol consumption and long-term smoker, bilirubin and LFTs are normal Symptomatic anemia currently 11.7, with bright red rectal blood and melena stools Currently blood thinners are on hold and since patient is fresh cardiac stent and on 3 different anticoagulants we need cardiology consult for his plan of care and clearance for any GI procedures which could include EGD and/or colonoscopy. Patient is feeling much better and is hoping to go home but discussed with him the need for stabilization before he goes. Addendum note patient was cleared per cardiology for EGD in a.m. currently stable without any abdominal pain no nausea no vomiting 08/09/2018 patient is status post EGD over the weekend with findings of LA class I esophagitis and a rare erythematous gastritis. Could be related to patient's small amount of melena stools. Patient is on Plavix, aspirin, and Coumadin. Aspirin is only for duration of 30 days after cardiac stent. Encourage patient to [facility] so he could be monitored per his regular physician as well as trade clerk for any trends in his anemia and any other obvious bleeding issues. Patient can discharge from a GI standpoint and follow-up with advanced GI or patient's core maker and PCP with the [facility]. Plan Diet as tolerated PPI p.o. 40 mg twice daily Bowel regimen as needed, no straining no vigorous wiping encourage baby wipes for cleanliness Avoid NSAIDs, will need repeat EGD in 1 year Patient was seen per myself and Dr. Payan, note was written on his behalf <Victoria Ornelas M - Last Filed: 08/09/18 13:35> - Plan Patient seen and examined Agree with above Follow-up with GI post discharge <Zafar Payan - Last Filed: 08/10/18 09:47>
--- NOTE | 2018-08-09 15:47 | P.DS ---
Date of admission: 08/06/18 20:55 Primary care physician: [facility] Anticipated date of discharge: 08/09/18 Brief History from admission: This is a 73-year-old male with a PMH of Hyperlipidemia, A. fib on Coumadin and CAD s/p Stent 2wks ago on ASA/Plavix who was sent to the ER from the [facility] for eval of GI Bleeding. Pt notes black, tarry stool for approx 1-2 wks, w/ intermittent episodes of BRBPR. Denies hemoptysis or hematemesis. No c/o chest pain or SOB. On arrival, BP 184/83, HR 77, O2 sat 97% on RA, Afebrile. Hemoglobin 13.6. INR 1.9. Chemistry unremarkable. Hemoccult +. S/p Protonix IV in ER. Pt currently without complaints. DS: Diagnosis - Discharge Diagnosis (1) GI bleed Status: Acute (2) Afib Status: Acute (3) HTN (hypertension) Status: Acute (4) CAD (coronary artery disease) Status: Chronic (5) Hx of heart artery stent Status: Chronic DS: Medications - Discharge Medications Prescriptions: pantoprazole 40 mg PO BID 30 Days #60 tab DS: Summary Hospital Course: This is a 73-year-old male with a PMH of Hyperlipidemia, A. fib on Coumadin and CAD s/p Stent 2wks ago on ASA/Plavix who was sent to the ER from the [facility] for eval of GI Bleeding. Pt notes black, tarry stool for approx 1-2 wks, w/ intermittent episodes of BRBPR. Denied hemoptysis or hematemesis. No c/o chest pain or SOB. On arrival, BP 184/83, HR 77, O2 sat 97% on RA, Afebrile. Hemoglobin 13.6. INR 1.9. Chemistry unremarkable. Hemoccult +. S/p Protonix IV in ER. Pt without complaints. Patient admitted, put on Protonix. H&H was monitored. Cardiology was consulted for clearance. Gastroenterology consulted. He did not require blood transfusion. Coumadin was put on hold. He was continued on aspirin and plavix. EGD recommended. S/P EGD 07/29-There was LA Class A esophagitis noted/erythematous gastritis in the gastric antrum/ Normal duodenal mucosa in the bulb and second portion of the duodenum/ Retroflexed views revealed no abnormalities. He tolerated diet. No further drop in hemoglobin. He was clear for discharge by gastroenterology and counseled to continue with PPI and follow-up with PCP at [facility] in 1 week. He was counseled extensively about his alcohol use. Coumadin was resumed. Patient was discharged in stable condition. - Time Spent with Patient Total time spent providing and/or coordinating discharge services: Less than 30 minutes - Quality: VTE Deep Vein Thrombosis/Pulmonary Embolism Present on Admission: No Exam Vital signs: Vital Signs 08/08/18 16:00 08/08/18 16:25 08/08/18 20:00 Temperature 98.2 F 98.4 F Pulse Rate 61 59 L 76 Respiratory Rate 16 18 Blood Pressure 166/82 H 148/72 H 135/67 Pulse Oximetry 95 95 95 08/08/18 23:43 08/08/18 23:44 08/09/18 00:00 Temperature 98.0 F Pulse Rate 70 64 Respiratory Rate 16 18 Blood Pressure 133/68 Pulse Oximetry 95 93 L 08/09/18 04:00 08/09/18 07:00 08/09/18 08:00 Temperature 98.1 F 97.6 F Pulse Rate 58 L 75 58 L Respiratory Rate 18 16 16 Blood Pressure 144/81 H 143/77 H Pulse Oximetry 96 95 08/09/18 10:05 08/09/18 12:00 Temperature 98.5 F Pulse Rate 64 Respiratory Rate 16 Blood Pressure 145/73 H Pulse Oximetry 95 97 Intake & Output 08/08/18 08/09/18 08/09/18 18:59 06:59 18:59 Intake Total 680 / 680 240 / 240 Balance 680 / 680 240 / 240 Intake: Oral 480 / 480 240 / 240 Anesthesia Amount 200 / 200 Other: # Voids 4 4 Date of Last Bowel Movement 08/07/18 08/09/18 # Bowel Movements 4 1 Results Procedures completed during hospitalization: S/P EGD 08/08/2018-There was LA Class A esophagitis noted/erythematous gastritis in the gastric antrum/Normal duodenal mucosa in the bulb and second portion of the duodenum/Retroflexed views revealed no abnormalities. Pending studies at discharge: Pending at discharge 08/08/18 08:22 Surgical [PTH] Routine Labs on day of discharge: Labs from last 24 hours 08/09/18 08/09/18 12:20 12:20 Hgb 10.8 L Hct 32.2 L PT 12.7 H INR 1.3 Discharge Plan - Discharge Disposition Patient Disposition: 01 Discharge Home - Discharge Condition Condition: Stable - Discharge Order Discharge Orders: Discharge Order (Routine); Ordered 08/09/18 Ordered By: Anabela Askew - Discharge Details Anticipated Discharge Date: 08/09/18 - Physicians Team Primary Care Provider: [facility],Physician 's Attending Provider: Carmina Garay Other Providers: Osito Trivedi MD ; Pablo Cho MD
== END 2018-08-09 15:05 | disposition home or self-care (01) ==
LOC: NEDA 14:25 → NEPE 14:25 → NEPGCP 23:00
PROVIDERS: ADMIT Family Medicine; ATTEND Family Medicine
PROC: PANENDO (2018-08-08 14:43)